=== PATIENT | female | born 1945 | race Caucasian/White ===

== ENCOUNTER 2017-05-29 23:54 | Inpatient (IN) | payer OTHER ==
--- NOTE | 2017-05-30 00:34 | ED PDOC ---
Arrival/HPI - General Time Seen by Provider: 05/30/17 00:18 Historian: Patient, EMS, Research Dietitian - Critical Care Critical Care Minutes: 30 minutes - History of Present Illness Narrative History of Present Illness (Text): 05/30/17 00:24 Dina Cooley is a 71 year old female, whose past medical history includes diabetes and hypertension, who presents to the Emergency department sent from cruise [place] for altered mental status tonight. As per EMS, patient was found wandering on the cruise ship deck confused and disoriented. Patient was noted to be hyperglycemia. Patient reports, via [employer]bek skirt clipper #[id number], she had 1 episode of vomiting tonight. Patient states she drank red wine and vodka tonight. Patient denies any chest pain, abdominal pain, headache, dizziness, or any other complaints. Time/Duration: Other (tonight) Symptom Onset: Gradual Symptom Course: Unchanged Activities at Onset: Light Context: Other (cruise ship) Past Medical History - Provider Review Nursing Documentation Reviewed: Yes Family/Social History - Physician Review Nursing Documentation Reviewed: Yes Family/Social History: Unknown Family HX Allergies/Home Meds Allergies/Adverse Reactions: Allergies No Known Allergies Allergy (Verified 05/30/17 00:18) Home Medications: Home Meds Medication Instructions Recorded Confirmed Valsartan/Hydrochlorothiazide 1 tab PO DAILY 05/30/17 05/30/17 [Valsartan-Hctz 160-12.5 mg Tab] Review of Systems - Review of Systems Systems not reviewed;Unavailable: Language Barrier Eyes: Normal ENT: Normal Respiratory: Normal. absent: SOB, Cough Cardiovascular: absent: Chest Pain Gastrointestinal: Vomiting. absent: Abdominal Pain, Diarrhea Genitourinary Female: Normal. absent: Dysuria, Frequency, Hematuria, Urine Output Changes Musculoskeletal: Normal. absent: Back Pain, Neck Pain Skin: Normal Neurological: Normal. absent: Headache, Dizziness Endocrine: Other (+hyperglycemia) Hemo/Lymphatic: Normal Psychiatric: Normal Physical Exam Vital Signs Reviewed: Yes Vital Signs Temp Pulse Resp BP Pulse Ox 05/30/17 06:09 99 H 16 137/78 99 05/30/17 06:00 99.1 F 106 H 20 142/75 98 05/30/17 04:52 98.0 F 103 H 16 139/73 100 05/30/17 00:43 98.7 F 126 H 18 121/63 97 Temperature: Afebrile Blood Pressure: Normal Pulse: Regular Respiratory Rate: Normal Appearance: Positive for: Well-Appearing, Non-Toxic, Comfortable Pain Distress: None Mental Status: Positive for: Alert and Oriented X 3 - Systems Exam Head: Present: Atraumatic, Normocephalic Pupils: Present: PERRL Extroacular Muscles: Present: EOMI Conjunctiva: Present: Normal Mouth: Present: Moist Mucous Membranes Neck: Present: Normal Range of Motion Respiratory/Chest: Present: Clear to Auscultation, Good Air Exchange. No: Respiratory Distress, Accessory Muscle Use Cardiovascular: Present: Regular Rate and Rhythm, Normal S1, S2. No: Murmurs Abdomen: Present: Normal Bowel Sounds. No: Tenderness, Distention, Peritoneal Signs Back: Present: Normal Inspection Upper Extremity: Present: Normal Inspection. No: Cyanosis, Edema Lower Extremity: Present: Normal Inspection. No: Edema Neurological: Present: GCS=15, CN II-XII Intact, Speech Normal Skin: Present: Warm, Dry, Normal Color. No: Rashes Psychiatric: Present: Alert, Oriented x 3, Normal Insight, Normal Concentration Medical Decision Making ED Course and Treatment: 05/30/17 00:24 Impression: 71 year old female sent from cruise ship for altered mental status and hyperglycemia tonight. Plan: -- EKG -- Chest X-ray -- Labs, troponin, VBG -- Urinalysis -- IV fluids -- Zofran -- Pepcid -- Reassess and disposition Progress Notes: 05/30/17 01:46 Reviewed radiology, Chest X-ray shows no acute processes. 05/30/17 01:55 Reviewed EKG, sinus tachycardia at 109 bpm. Inferior infarct. Non-specific ST/T wave changes. 05/30/17 02:[address] Quiles, lime sludge kiln operator,who is aware and agrees to evaluate pt. 05/30/17 02:09 Case discussed with biomedical equipment tech staff electronic warfare officer, who is aware and agrees with plan. 05/30/17 04:[address] Quiles, states [facility] can go to [facility]. Pt will be admitted to the hospitalist service for uncontrolled diabetes mellitus, UTI, and leukocytosis. - Lab Interpretations Lab Results: 05/30/17 01:00 05/30/17 03:57 Lab Results 05/30/17 04:10: Alcohol, Quantitative < 10 05/30/17 03:57: Sodium 137, Chloride 105, Potassium 3.7, Carbon Dioxide 20 L, Anion Gap 16, BUN 20, Creatinine 0.7, Est GFR ( Amer) > 60, Est GFR (Non- Af Amer) > 60, Random Glucose 348 H* D, Calcium 7.7 L 05/30/17 03:30: Urine Color Yellow, Urine Appearance Clear, Urine pH 6.0, Ur Specific [place] 1.015, Urine Protein 30 H, Urine Glucose (UA) >=1000, Urine Ketones >=80, Urine Blood Moderate H, Urine Nitrate Positive H, Urine Bilirubin Negative, Urine Urobilinogen 0.2, Ur Leukocyte Esterase Trace H, Urine RBC 2 - 5 , Urine WBC 5 - 10, Ur Epithelial Cells 1 - 3, Urine Bacteria Large 05/30/17 03:10: POC Glucose (mg/dL) 430 H* 05/30/17 01:00: Sodium 131 L, Chloride 95 L, Potassium 4.2, Carbon Dioxide 15 L , Anion Gap 25 H, BUN 24 H, Creatinine 0.9, Est GFR ( Amer) > 60, Est GFR (Non-Af Amer) > 60, Random Glucose 583 H*, Calcium 9.0, Total Bilirubin 0.9 , AST 22, ALT 32, Alkaline Phosphatase 164 H, Troponin I 0.06, Total Protein 6.8 , Albumin 3.7, Globulin 3.2, Albumin/Globulin Ratio 1.2 05/30/17 01:00: pO2 45, VBG pH 7.32, VBG pCO2 30.0 L, VBG HCO3 15.5 L, VBG Total CO2 16.4 L, VBG O2 Sat (Calc) 84.2 H, VBG Base Excess -9.3 L, VBG Potassium 4.2, Sodium 129.0 L, Chloride 92.0 L, Glucose 615 H*, Lactate 2.0, FiO2 21.0, Venous Blood Potassium 4.2 05/30/17 01:00: PT 11.4, INR 1.06, APTT 28.4 05/30/17 01:00: WBC 19.3 H, RBC 4.45, Hgb 13.4, Hct 38.8, MCV 87.2, MCH 30.1, MCHC 34.5, RDW 13.4, Plt Count 220, MPV 11.2 H, Gran % 89.2 H, Lymph % (Auto) 5.0 L, [place] % (Auto) 5.7, Eos % (Auto) 0.0 L, Baso % (Auto) 0.1, Gran # 17.26 H , Lymph # 1.0 L, [place] # 1.1 H, Eos # 0.0, Baso # 0.02, Neutrophils % (Manual) 75 H, Band Neutrophils % 7 H, Lymphocytes % (Manual) 8 L, Monocytes % (Manual) 9 H, Basophils % (Manual) 1, Platelet Evaluation Normal I have reviewed the lab results: Yes - RAD Interpretation Radiology Orders: 05/30/17 00:24 CHEST PORTABLE [RAD] Stat Saddle And Side Wire Stitcher: ED Physician - EKG Interpretation Interpreted by ED Physician: Yes Type: 12 lead EKG - Medication Orders Current Medication Orders: Enoxaparin Sodium (Lovenox) 40 mg SC DAILY [place] PRN Reason: Protocol Last Admin: 05/30/17 11:03 Dose: 40 mg Hydrochlorothiazide (Microzide) 12.5 mg PO DAILY [facility] Last Admin: 05/30/17 11:02 Dose: 12.5 mg Sodium Chloride (Sodium Chloride 0.9%) 1,000 mls @ 100 mls/hr IV .Q10H [facility] Last Admin: 05/30/17 08:13 Dose: 100 mls/hr Meropenem 1g/NS 100mL IVPB (Meropenem 1g/Ns 100ml Ivpb) 1 gm in 100 mls @ 100 mls/hr IVPB Q8 [place] PRN Reason: Protocol Stop: 06/08/17 12:51 Last Admin: 05/30/17 13:23 Dose: 100 mls/hr Insulin Detemir (Levemir) 15 unit SC HS [facility] Last Admin: 05/30/17 05:00 Dose: Comments: order on hold by Insulin Human Regular (Humulin R Low) 0 units SC Q3H [place] PRN Reason: Protocol Last Admin: 05/30/17 12:23 Dose: 4 units Linezolid (Zyvox) 600 mg PO BID [place] PRN Reason: Protocol Stop: 06/08/17 12:51 Last Admin: 05/30/17 13:23 Dose: 600 mg Losartan Potassium (Cozaar) 100 mg PO DAILY [facility] Last Admin: 05/30/17 11:02 Dose: 100 mg Nystatin (Nystop Topical Powder) 0 gm TOP BID [facility] Ondansetron HCl (Zofran Inj) 4 mg IVP Q4H PRN PRN Reason: Nausea/Vomiting Pantoprazole Sodium (Protonix Inj) 40 mg IVP DAILY [facility] Last Admin: 05/30/17 11:03 Dose: 40 mg Discontinued Medications Famotidine (Pepcid) 20 mg IVP STAT STA Stop: 05/30/17 00:49 Last Admin: 05/30/17 01:16 Dose: 20 mg Sodium Chloride 2,530 ml/ IV (SUPPLIES) 2,530 mls @ 5,062.08 mls/hr IV ONCE ONE PRN Reason: 60 ML/KG/HR Stop: 05/30/17 00:21 Last Admin: 05/30/17 01:00 Dose: 5,062.08 mls/hr Sodium Chloride (Sodium Chloride 0.9%) 1,000 mls @ 999 mls/hr IV .Q1H1M STA Stop: 05/30/17 03:05 Last Admin: 05/30/17 06:06 Dose: 999 mls/hr Vancomycin HCl (Vancomycin 1gm) 1 gm in 250 mls @ 167 mls/hr IVPB STAT STA PRN Reason: Protocol Stop: 05/30/17 03:46 Last Admin: 05/30/17 04:00 Dose: 167 mls/hr Piperacillin Sod/Tazobactam Sod (Zosyn 3.375 In Ns 100ml) 100 mls @ 200 mls/hr IV STAT STA PRN Reason: Protocol Stop: 05/30/17 02:44 Last Admin: 05/30/17 03:30 Dose: 200 mls/hr Ceftriaxone Sodium (Rocephin 1 Gram Ivpb) 1 gm in 100 mls @ 100 mls/hr IVPB DAILY [place] PRN Reason: Protocol Ceftriaxone Sodium (Rocephin 1 Gram Ivpb) 1 gm in 100 mls @ 100 mls/hr IVPB DAILY [facility] PRN Reason: Protocol Last Admin: 05/30/17 11:05 Dose: 100 mls/hr Insulin Detemir (Levemir) 15 unit SC STAT STA Stop: 05/30/17 05:00 Insulin Human Regular (Humulin R) 10 units SC STAT STA Stop: 05/30/17 01:32 Last Admin: 05/30/17 01:35 Dose: 10 units Insulin Human Regular (Humulin R) Confirm Administered Dose 1 units .ROUTE .STK- MED ONE Stop: 05/30/17 01:39 Last Admin: 05/30/17 01:58 Dose: Ondansetron HCl (Zofran Inj) 4 mg IVP ONCE ONE Stop: 05/30/17 00:49 Last Admin: 05/30/17 01:17 Dose: 4 mg - Scribe Statement The provider has reviewed the documentation as recorded by the Wilfredo Cavazos Provider Scribe Attestation: All medical record entries made by the Wilfredo were at my direction and personally dictated by me. I have reviewed the chart and agree that the record accurately reflects my personal performance of the history, physical exam, medical decision making, and the department course for this patient. I have also personally directed, reviewed, and agree with the discharge instructions and disposition. Disposition/Present on Arrival - Present on Arrival Any Indicators Present on Arrival: No History of DVT/PE: No History of Uncontrolled Diabetes: Yes Urinary Catheter: No History of Decub. Ulcer: No History Surgical Site Infection Following: None - Disposition Have Diagnosis and Disposition been Completed?: Yes Diagnosis: Uncontrolled diabetes mellitus, Leukocytosis, UTI (urinary tract infection) Disposition: HOSPITALIZED Disposition Time: 05:03 Patient Plan: Admission Patient Problems: Current Active Problems Problem Status Onset Leukocytosis Acute UTI (urinary tract infection) Acute Uncontrolled diabetes mellitus Acute Condition: STABLE
[2017-05-30 00:47] VITALS: BMI 29.9
[2017-05-30 01:23] LABS: VENOUS BLOOD GAS BASE EXCESS -9.3 mmol/L (0.0-2.0); VENOUS BLOOD PH 7.32 (7.32-7.43)
[2017-05-30 01:27] LABS: BASO # 0.02 K/mm3 (0.0-2.0); BASO % 0.1 % (0.0-3.0); GRAN # 17.26 (1.4-6.5); GRAN % 89.2 % (50.0-68.0); HEMATOCRIT 38.8 % (36.0-48.0); MEAN CELL VOLUME 87.2 fl (80.0-105.0); MEAN CORPUSCULAR HEMOGLOBIN 30.1 pg (25.0-35.0); MEAN CORPUSCULAR HGB CONC 34.5 g/dl (31.0-37.0); MEAN PLATELET VOLUME 11.2 fl (7.0-11.0); MONO # 1.1 (0.1-0.6); MONO % 5.7 % (1.0-6.0); PLATELET COUNT 220 10^3/uL (120.0-450.0); RED CELL DISTRIBUTION WIDTH 13.4 % (11.5-14.5); WHITE BLOOD COUNT 19.3 10^3/ul (4.5-11.0)
[2017-05-30 01:31] LABS: ALB/GLOB RATIO 1.2 (1.1-1.8); ALKALINE PHOSPHATASE 164 U/L (38-126); ALT/SGPT 32 U/L (7-56); AST/SGOT 22 U/L (14-36); BILIRUBIN,TOTAL 0.9 mg/dL (0.2-1.3); BLOOD UREA NITROGEN 24 mg/dL (7-21); CARBON DIOXIDE 15 mmol/L (21-33); CHLORIDE 95 mmol/L (98-107); GFR AFRICAN-AMERICAN > 60; POTASSIUM 4.2 mmol/L (3.6-5.0); SODIUM 131 mmol/L (132-148); TOTAL PROTEIN 6.8 g/dL (5.8-8.3)
[2017-05-30] MEDS ORDERED: Insulin Regular 1 UNITS/0.01 ML ML SC STA (01:31)
[2017-05-30 01:33] LABS: INR 1.06 (0.93-1.08); PARTIAL THROMBOPLASTIN TIME 28.4 Seconds (23.7-30.8)
[2017-05-30] MEDS ORDERED: Insulin Regular 1 UNITS/0.01 ML ML ONE (01:38)
[2017-05-30 01:40] LABS: GLUCOSE,RANDOM 583 mg/dL (70-110)
[2017-05-30 01:42] LABS: TROPONIN I 0.06 ng/mL
[2017-05-30] MEDS ORDERED: Sodium Chloride 0.9% 1,000 ML IV STA ×2 (02:05)
[2017-05-30] MEDS ORDERED: Piperacillin/Tazobact 3.375 gm 100 ML IV STA (02:15)
[2017-05-30] MEDS ORDERED: Vancomycin 1gm in NS 250ml 1 GM/250 ML BAG IVPB STA (02:17)
[2017-05-30 03:10] LABS: BAND 7 % (0-2); BASOPHIL 1 % (0.0-1.0); NEUTROPHIL 75 % (50.0-70.0)
[2017-05-30 03:11] LABS: PLATELET ESTIMATE NORMAL (NORMAL)
[2017-05-30 03:59] LABS: URINE BILIRUBIN NEGATIVE (NEGATIVE); URINE BLOOD MODERATE (NEGATIVE); URINE GLUCOSE (UA) >=1000 mg/dL (NEGATIVE); URINE KETONE >=80 mg/dL (NEGATIVE); URINE LEUKOCYTE ESTERASE TRACE Leu/uL (NEGATIVE); URINE PROTEIN 30 mg/dL (<30 mg/dL); URINE UROBILINOGEN 0.2 E.U./dL (<1 E.U./dL)
[2017-05-30 04:10] LABS: URINE APPEARANCE CLEAR (CLEAR); URINE COLOR YELLOW (YELLOW)
[2017-05-30 04:29] LABS: URINE BACTERIA LARGE (NEG)
--- NOTE | 2017-05-30 04:41 | CP.PCM.HP ---
<NONA MATTA - Last Filed: 05/30/17 04:22> History of Present Illness - History of Present Illness History of Present Illness: Nona Matta DO PGY1 - Internal Medicine H&P and ICU Consult Note CC: Vomiting HPI: 71 yo Slovak speaking F with PMH of DM and HTN presents to ER by ambulance , brought from a cruise ship where she had vomiting and was noted to be confused. On board medical exam significant for HTN (200/100), hyperglycemia ( 565), lactic acidosis (4.2), and leukocytosis (56355). She was given 1L NS bolus , 5mg Nitrendipine SL, and 5mg Urapidil, after which her BP improved to 150/80. (Per doctor's letter sent from cruise ship). History obtained through remote commodity specialist. She currently denies all complaints, including CP, SOB, N/V/D/C, abdominal pain, dysuria, hematuria, cough, sore throat, otalgia, otorrhea, nasal congestion. She reports that she drank approximately 200ml wine on the cruise ship, and vomited once, NBNB, mostly water. She reports noncompliance with her oral hypoglycemics. PMH: DM, HTN PSH: None Meds: Valsartan 160, HCTZ 12.5, unknown oral hypoglycemic Soc: Denies Tobacco and Illicits. Normally does not drink any alcohol, but reports having had two glasses of wine today All: NKDA ROS: Constitutional: pt denies fever, chills, generalized weakness ENT: pt denies dysphagia, otalgia, hearing deficit, rhinorrhea Eyes: pt denies sudden loss of vision, diplopia, blurred vision MSK: pt denies muscle stiffness, joint pain, extremity cramping Cardio: pt denies sob, heart murmur, CP Pulm: pt denies cough, hemoptysis, wheeze GI: pt denies loss of appetite, abdominal pain, constipation, melena, n/v/d : pt denies burning on urination, urinary frequency, hematuria, urinary urgency Neuro: pt denies paresis, paresthesia, dizziness, urbina, numbness, tingling Derm: pt denies skin changes, lesions, nail changes Endo: pt denies intolerance to heat/cold, diaphoresis, night sweats, polydipsia Psych: pt denies anxiety, depression, mood changes Present on Admission - Present on Admission Any Indicators Present on Admission: No Past Patient History - Past Social History Smoking Status: Never Smoked - CARDIAC Hx Cardiac Disorders: No - PULMONARY Hx Respiratory Disorders: No - NEUROLOGICAL Hx Neurological Disorder: No - HEENT Hx HEENT Problems: No - RENAL Hx Chronic Kidney Disease: No - ENDOCRINE/METABOLIC Hx Diabetes Mellitus Type 1: Yes - HEMATOLOGICAL/ONCOLOGICAL Hx Blood Disorders: No - INTEGUMENTARY Hx Dermatological Problems: No - MUSCULOSKELETAL/RHEUMATOLOGICAL Hx Musculoskeletal Disorders: No - GASTROINTESTINAL Hx Gastrointestinal Disorders: No - GENITOURINARY/GYNECOLOGICAL Hx Genitourinary Disorders: No - PSYCHIATRIC Hx Psychophysiologic Disorder: No Hx Substance Use: No - SURGICAL HISTORY Hx Surgeries: No Meds Allergies/Adverse Reactions: Allergies Allergy/AdvReac Type Severity Reaction Status Date / Time No Known Allergies Allergy Verified 05/30/17 00:18 Physical Exam - Constitutional Appears: Non-toxic, No Acute Distress Additional comments: Slovak speaking only - Head Exam Head Exam: ATRAUMATIC, NORMOCEPHALIC - Eye Exam Eye Exam: EOMI, Normal appearance, PERRL - ENT Exam ENT Exam: Mucous Membranes Moist - Neck Exam Neck exam: Negative for: Lymphadenopathy, Meningismus, Thyromegaly - Respiratory Exam Respiratory Exam: Clear to Auscultation Bilateral. absent: Rales, Rhonchi, Wheezes - Cardiovascular Exam Cardiovascular Exam: RRR, +S1, +S2 - GI/Abdominal Exam GI & Abdominal Exam: Normal Bowel Sounds, Soft. absent: Guarding, Rebound, Rigid, Tenderness - Extremities Exam Extremities exam: Negative for: calf tenderness Additional comments: Trace pitting edema right foot to ankle - Back Exam Back exam: absent: CVA tenderness (L), CVA tenderness (R) - Neurological Exam Neurological exam: Alert, CN II-XII Intact, Oriented x3 - Psychiatric Exam Psychiatric exam: Normal Affect, Normal Mood - Skin Skin Exam: Dry, Intact, Normal Color Results - Vital Signs Recent Vital Signs: Last Vital Signs Temp 98.7 F 05/30/17 00:43 Pulse 126 H 05/30/17 00:43 Resp 18 05/30/17 00:43 BP 121/63 05/30/17 00:43 Pulse Ox 97 05/30/17 00:43 - Labs Result Diagrams: 05/30/17 01:00 05/30/17 01:00 Labs: Laboratory Results - last 24 hr 05/30/17 05/30/17 05/30/17 01:00 01:00 01:00 WBC 19.3 H RBC 4.45 Hgb 13.4 Hct 38.8 MCV 87.2 MCH 30.1 MCHC 34.5 RDW 13.4 Plt Count 220 MPV 11.2 H Gran % 89.2 H Lymph % (Auto) 5.0 L [place] % (Auto) 5.7 Eos % (Auto) 0.0 L Baso % (Auto) 0.1 Gran # 17.26 H Lymph # 1.0 L [place] # 1.1 H Eos # 0.0 Baso # 0.02 Neutrophils % (Manual) 75 H Band Neutrophils % 7 H Lymphocytes % (Manual) 8 L Monocytes % (Manual) 9 H Basophils % (Manual) 1 Platelet Evaluation Normal PT 11.4 INR 1.06 APTT 28.4 pO2 45 VBG pH 7.32 VBG pCO2 30.0 L VBG HCO3 15.5 L VBG Total CO2 16.4 L VBG O2 Sat (Calc) 84.2 H VBG Base Excess -9.3 L VBG Potassium 4.2 Sodium 129.0 L Chloride 92.0 L Glucose 615 H* Lactate 2.0 FiO2 21.0 Potassium Carbon Dioxide Anion Gap BUN Creatinine Est GFR ( Amer) Est GFR (Non-Af Amer) POC Glucose (mg/dL) Random Glucose Calcium Total Bilirubin AST ALT Alkaline Phosphatase Troponin I Total Protein Albumin Globulin Albumin/Globulin Ratio Venous Blood Potassium 4.2 Urine Color Urine Appearance Urine pH Ur Specific [place] Urine Protein Urine Glucose (UA) Urine Ketones Urine Blood Urine Nitrate Urine Bilirubin Urine Urobilinogen Ur Leukocyte Esterase 05/30/17 05/30/17 05/30/17 01:00 03:10 03:30 WBC RBC Hgb Hct MCV MCH MCHC RDW Plt Count MPV Gran % Lymph % (Auto) [place] % (Auto) Eos % (Auto) Baso % (Auto) Gran # Lymph # [place] # Eos # Baso # Neutrophils % (Manual) Band Neutrophils % Lymphocytes % (Manual) Monocytes % (Manual) Basophils % (Manual) Platelet Evaluation PT INR APTT pO2 VBG pH VBG pCO2 VBG HCO3 VBG Total CO2 VBG O2 Sat (Calc) VBG Base Excess VBG Potassium Sodium 131 L Chloride 95 L Glucose Lactate FiO2 Potassium 4.2 Carbon Dioxide 15 L Anion Gap 25 H BUN 24 H Creatinine 0.9 Est GFR ( Amer) > 60 Est GFR (Non-Af Amer) > 60 POC Glucose (mg/dL) 430 H* Random Glucose 583 H* Calcium 9.0 Total Bilirubin 0.9 AST 22 ALT 32 Alkaline Phosphatase 164 H Troponin I 0.06 Total Protein 6.8 Albumin 3.7 Globulin 3.2 Albumin/Globulin Ratio 1.2 Venous Blood Potassium Urine Color Yellow Urine Appearance Clear Urine pH 6.0 Ur Specific [place] 1.015 Urine Protein 30 H Urine Glucose (UA) >=1000 Urine Ketones >=80 Urine Blood Moderate H Urine Nitrate Positive H Urine Bilirubin Negative Urine Urobilinogen 0.2 Ur Leukocyte Esterase Trace H Assessment & Plan - Assessment and Plan (Free Text) Assessment: 71 yo Slovak speaking F with PMH of DM, HTN, medication noncompliance presents to ER, sent by cruise ship physician for hyperglycemia, leukocytosis, lactic acidosis, HTN, and vomiting Plan: 1. HONK - Patient has history of DM and medication noncompliance; presented with BG 583 , bicarbonate 15 and AG 21, and ketonuria, but not acidotic on VBG - Received 10u insulin in ER, 1L NS bolus prior to presentation, and total 5L NS bolus in the ER - After insulin and fluid administration, BG came down to 340 and AG closed (12) , so patient is in HONK, likely triggered by UTI - Start Levimir 15u HS, with one dose given now - Start IVF NS@100cc/hr - Sliding scale insulin LOW with accucheck Q3h - Zofran for nausea - Carb consistent diet 2. Leukocytosis - Sepsis 2/2 acute cystitis - Patient initially presented with SIRS criteria, possible sepsis. Had WBC 98104 with LA 4.2 prior to presentation, which changed to WBC up to 19.3 and LA down to 2.0 on presentation, initially tachycardic, later with positive UA as likely source of infection - No signs of shock or end organ damage - VSS now, no longer meets SIRS criteria - UCx, BCx ordered, pending - CXR shows no active disease, pending official read - Received one dose of Vanc and Zosyn in ER - Start Rocephin 1gm QD - Recheck leukocytosis with AM labs 3. HTN - Hypertensive urgency/emergency prior to presentation, resolved - BP stable in ER after receiving Nitrendipin and Urapidil in the field - Restart home Valsartan and HCTZ - Continue to monitor GI/DVT Ppx As patient is not in DKA and not requiring insulin drip, nor in severe sepsis/ septic shock, ICU admission not warranted at this time. Patient seen, discussed, and reviewed with attending <Sage Quilse - Last Filed: 05/30/17 06:41> Results - Vital Signs Recent Vital Signs: Last Vital Signs Temp 98.0 F 05/30/17 04:52 Pulse 99 H 05/30/17 06:09 Resp 16 05/30/17 06:09 BP 137/78 05/30/17 06:09 Pulse Ox 99 05/30/17 06:09 - Labs Result Diagrams: 05/30/17 05:35 05/30/17 03:57 Labs: Laboratory Results - last 24 hr 05/30/17 05/30/17 05/30/17 05:11 05:35 05:35 WBC 15.2 H D RBC 4.08 Hgb 12.1 Hct 35.0 L MCV 85.8 MCH 29.7 MCHC 34.6 RDW 13.4 Plt Count 204 MPV 10.6 Gran % 87.1 H Lymph % (Auto) 7.7 L [place] % (Auto) 5.1 Eos % (Auto) 0.0 L Baso % (Auto) 0.1 Gran # 13.23 H Lymph # 1.2 [place] # 0.8 H Eos # 0.0 Baso # 0.02 pO2 53 VBG pH 7.29 L VBG pCO2 38.0 L VBG HCO3 18.3 L VBG Total CO2 19.5 L VBG O2 Sat (Calc) 90.7 H VBG Base Excess -7.7 L VBG Potassium 3.3 L Sodium 136.0 Chloride 107.0 Glucose 323 H Lactate 1.5 FiO2 21.0 POC Glucose (mg/dL) 340 H Venous Blood Potassium 3.3 L Attending/Attestation - Attestation I have personally seen and examined this patient.: Yes I have fully participated in the care of the patient.: Yes I have reviewed all pertinent clinical information: Yes Notes (Text): 05/30/17 06:38 I agree with the above mentioned note and exam by the resident with the addition of the followin71 y/o female with Htn and DM (taking oral agents, does not use insulin) was brought in to the ED from the cruise ship where she had been experiencing nausea and vomiting along with lethargy. Asked to see the patient for an ICU consult, however she presented as hyperosmolar nonketotic state with resolution of her anion gap acidosis with IVF administration. It appears this was brought on by sepsis secondary to acute cystitis. She was given empiric Vanco/Zosyn in the ED prior to a U/A even being performed. She is now on IVF hydration, Ceftriaxone IV and started on a diet. We will continue to check her fingersticks frequently (Q3) to ensure that she does not remain persistently hyperglycemic. She did not require placement in the ICU or an ongoing insulin drip at this time.
[2017-05-30 04:45] LABS: BLOOD UREA NITROGEN 20 mg/dL (7-21); CALCIUM 7.7 mg/dL (8.4-10.5); CARBON DIOXIDE 20 mmol/L (21-33); CHLORIDE 105 mmol/L (98-107); GFR AFRICAN-AMERICAN > 60; POTASSIUM 3.7 mmol/L (3.6-5.0); SODIUM 137 mmol/L (132-148)
[2017-05-30] MEDS ORDERED: Insulin Detemir 100 units/ml Vial (Levemir) SC STA (04:59)
[2017-05-30] MEDS ORDERED: cefTRIAXone 1 gm 1 GM/100 ML BAG IVPB SCH ×2 (04:59→10:00)
[2017-05-30] MEDS: Insulin Detemir 100 units/ml Vial (Levemir) SC SCH ×2 (05:00→22:42)
[2017-05-30] MEDS: Insulin Reg-LOW-Coverage SC SCH ×6 (05:12→22:25)
[2017-05-30 05:23] LABS: GLUCOSE,RANDOM 348 mg/dL (70-110)
[2017-05-30 05:55] LABS: BASO # 0.02 K/mm3 (0.0-2.0); BASO % 0.1 % (0.0-3.0); GRAN # 13.23 (1.4-6.5); GRAN % 87.1 % (50.0-68.0); LYMPH # 1.2 (1.2-3.4); LYMPH % 7.7 % (22.0-35.0); MEAN CELL VOLUME 85.8 fl (80.0-105.0); MEAN CORPUSCULAR HEMOGLOBIN 29.7 pg (25.0-35.0); MEAN CORPUSCULAR HGB CONC 34.6 g/dl (31.0-37.0); MEAN PLATELET VOLUME 10.6 fl (7.0-11.0); MONO # 0.8 (0.1-0.6); MONO % 5.1 % (1.0-6.0); RED CELL DISTRIBUTION WIDTH 13.4 % (11.5-14.5); WHITE BLOOD COUNT 15.2 10^3/ul (4.5-11.0)
[2017-05-30 05:57] LABS: VENOUS BLOOD GAS BASE EXCESS -7.7 mmol/L (0.0-2.0); VENOUS BLOOD PH 7.29 (7.32-7.43)
[2017-05-30] MEDS: Sodium Chloride 0.9% 1,000 ML IV SCH ×2 (08:13→18:17)
[2017-05-30] MEDS: Enoxaparin 40 mg Syringe SC SCH (11:03)
[2017-05-30] MEDS ORDERED: Vancomycin 500mg in NS 500 MG/100 ML BAG IVPB SCH (12:15)
--- NOTE | 2017-05-30 13:18 | CARD ---
APPROVED REPORT EKG Measurement Heart [id number] <Conclusion> Sinus tachycardia Inferior infarct, age undetermined Abnormal ECG
[2017-05-30] MEDS: Meropenem 1g/NS 100mL IVPB 1 GM/100 ML PIGGYBACK IVPB SCH ×3 (13:23→22:42)
[2017-05-30] MEDS ORDERED: Meropenem 500 MG in Sodium Chloride 0.9% 100 ML IVPB SCH (14:00)
--- NOTE | 2017-05-30 16:51 | CON ---
DATE: 05/30/2017 LOCATION: The patient is seen earlier today in 378, bed 1. CHIEF COMPLAINT: Weakness from several days. HISTORY OF PRESENT ILLNESS: This is a 71-year-old female from [place]. 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 She is off from the cruise ship with history of hypertension, diabetes. She developed nausea and vomiting and no abdominal pain at this point. No chest pain. No headaches or blurred vision. She had low-grade fevers. No chills. She was initially confused; at this time, she is not confused. She denies any chest pain, shortness of breath and she did have nausea, but no abdominal pain, dysuria, no hematuria, no sore throat. PAST MEDICAL HISTORY: Significant for hypertension and diabetes. PAST SURGICAL HISTORY: Noncontributory. ALLERGIES: THE PATIENT HAS NO KNOWN ALLERGIES. SOCIAL HISTORY: She is [place]. She was on a cruise ship and became ill on a cruise ship. MEDICATIONS AT HOME: In [place] include valsartan and hydrochlorothiazide. PHYSICAL EXAMINATION: GENERAL: She is in bed, in no acute distress. VITAL SIGNS: Temperature of 99.1, heart rate of 126, respiratory rate of 20, blood pressure is 120/60. HEENT: Unremarkable. NECK: Supple. LUNGS: Decreased breath sounds. HEART: Normal S1 and S2. ABDOMEN: Soft. EXTREMITIES: Examination of right foot is erythematous. The right big toe with foul odor, it is necrotic and central ulcer. The pulses are intact. LABORATORY DATA: Reveals a white count of 19,000, hemoglobin of 13, platelets of 220 and 89% granulocytosis. The patient has 7% bandemia. BUN of 20, creatinine of 0.7. Urinalysis is noted and 5-10 WBCs. The patient had a chest x-ray, the results are not available. Echo results are not available. EKG results are not available. ASSESSMENT AND PLAN: This is a 71-year-old female with leukocytosis, tachycardia. 1. Sepsis with a right first toe cellulitis. 2. Rule out underlying peripheral vascular disease. 3. Rule out osteomyelitis. We will start the patient on Zyvox and meropenem and order a sedimentation rate, C-reactive protein, blood cultures, urine cultures, wound cultures and MRI of the foot and arterial Doppler's and venous Doppler's, and make further recommendations upon availability of initial results, should have a vascular consultation and podiatry consultation. Duane Chiang MD
--- NOTE | 2017-05-30 17:22 | RAD ---
HISTORY: Sepsis Patient COMPARISON: No prior. FINDINGS: LUNGS: No active pulmonary disease. PLEURA: No significant pleural effusion identified, no pneumothorax apparent. CARDIOVASCULAR: Normal. Mild multilevel degenerative spondylosis of the thoracic spine OSSEOUS STRUCTURES: VISUALIZED UPPER ABDOMEN: Normal. OTHER FINDINGS: None. IMPRESSION: No acute consolidation.
[2017-05-30] MEDS: Nystatin 100,000 Units/gm Topical Pow(15 gm) TOP SCH (18:17)
[2017-05-31] MEDS: Insulin Reg-LOW-Coverage SC SCH ×6 (01:00→22:56)
[2017-05-31] MEDS: Meropenem 1g/NS 100mL IVPB 1 GM/100 ML PIGGYBACK IVPB SCH ×3 (05:47→22:56)
[2017-05-31 06:58] LABS: BASO # 0.02 K/mm3 (0.0-2.0); BASO % 0.2 % (0.0-3.0); EOS # 0.1 (0.0-0.7); EOS % 0.9 % (1.5-5.0); GRAN # 7.06 (1.4-6.5); GRAN % 72.2 % (50.0-68.0); HEMATOCRIT 33.7 % (36.0-48.0); LYMPH # 1.7 (1.2-3.4); LYMPH % 17.2 % (22.0-35.0); MEAN CELL VOLUME 85.5 fl (80.0-105.0); MEAN CORPUSCULAR HEMOGLOBIN 28.9 pg (25.0-35.0); MEAN CORPUSCULAR HGB CONC 33.8 g/dl (31.0-37.0); MEAN PLATELET VOLUME 10.8 fl (7.0-11.0); MONO # 0.9 (0.1-0.6); MONO % 9.5 % (1.0-6.0); RED CELL DISTRIBUTION WIDTH 13.4 % (11.5-14.5); WHITE BLOOD COUNT 9.8 10^3/ul (4.5-11.0)
[2017-05-31 07:38] LABS: ALB/GLOB RATIO 0.9 (1.1-1.8); ALKALINE PHOSPHATASE 102 U/L (38-126); ALT/SGPT 28 U/L (7-56); AST/SGOT 19 U/L (14-36); BILIRUBIN,TOTAL 0.6 mg/dL (0.2-1.3); BLOOD UREA NITROGEN 11 mg/dL (7-21); CALCIUM 8.2 mg/dL (8.4-10.5); CARBON DIOXIDE 26 mmol/L (21-33); CHLORIDE 99 mmol/L (95-110); GFR AFRICAN-AMERICAN > 60; GLUCOSE,RANDOM 155 mg/dL (70-110); POTASSIUM 4.5 mmol/L (3.6-5.0); SODIUM 138 mmol/L (132-148); TOTAL PROTEIN 5.5 g/dL (5.8-8.3)
--- NOTE | 2017-05-31 11:25 | CP.PCM.CON ---
<MercedesgurmeetPammalka - Last Filed: 05/31/17 15:48> History of Present Illness - History of Present Illness History of Present Illness: Podiatry Consult Note - Dr. Granados 71 year old Korean speaking female patient PMHx uncontrolled DM and HTN seen at bedside at the request for podiatry consultation for wound care/ r/o OM. HPI was obtained using cracker off ([facility] #[id number]). Patient states on Thursday, she was on a cruise ship with her family when she felt dehydrated and vomited. Patient states she had been dehydrated from travelling all day but otherwise felt fine on the cruise ship; patient admits she is confused as to why she was taken from the trip. Patient admits to being a diabetic however does not take her medications regularly. Patient admits to swelling to her right great toe but is not sure when it began. Patient denies pain to her right foot. Patient denies N/ V/F/D/C/SOB/calf pain. No other pedal complaints at this time. Review of Systems - Review of Systems All systems: reviewed and no additional remarkable complaints except (as per HPI ) Past Patient History - Past Social History Smoking Status: Never Smoked - CARDIAC Hx Hypertension: Yes - PULMONARY Hx Respiratory Disorders: No - NEUROLOGICAL Hx Neurological Disorder: No - HEENT Hx HEENT Problems: No - RENAL Hx Chronic Kidney Disease: No - ENDOCRINE/METABOLIC Hx Diabetes Mellitus Type 2: Yes (Managed with PO meds) - HEMATOLOGICAL/ONCOLOGICAL Hx Blood Disorders: No - INTEGUMENTARY Hx Dermatological Problems: No - MUSCULOSKELETAL/RHEUMATOLOGICAL Hx Falls: No - GASTROINTESTINAL Hx Gastrointestinal Disorders: No - GENITOURINARY/GYNECOLOGICAL Hx Genitourinary Disorders: No - PSYCHIATRIC Hx Psychophysiologic Disorder: No Hx Substance Use: No - SURGICAL HISTORY Hx Surgeries: No Meds Allergies/Adverse Reactions: Allergies Allergy/AdvReac Type Severity Reaction Status Date / Time No Known Allergies Allergy Verified 05/30/17 00:18 - Medications Medications: Current Medications Acetaminophen (Tylenol 325mg Tab) 650 mg PO Q6H PRN PRN Reason: Fever >100.4 F Enoxaparin Sodium (Lovenox) 40 mg SC DAILY [facility] PRN Reason: Protocol Last Admin: 05/30/17 11:03 Dose: 40 mg Hydrochlorothiazide (Microzide) 12.5 mg PO DAILY [facility] Last Admin: 05/30/17 11:02 Dose: 12.5 mg Sodium Chloride (Sodium Chloride 0.9%) 1,000 mls @ 100 mls/hr IV .Q10H [facility] Last Admin: 05/30/17 18:17 Dose: 100 mls/hr Meropenem 1g/NS 100mL IVPB (Meropenem 1g/Ns 100ml Ivpb) 1 gm in 100 mls @ 100 mls/hr IVPB Q8 [facility] PRN Reason: Protocol Stop: 06/08/17 12:51 Last Admin: 05/31/17 05:47 Dose: 100 mls/hr Insulin Detemir (Levemir) 15 unit SC HS [facility] Last Admin: 05/30/17 22:42 Dose: 15 unit Insulin Human Regular (Humulin R Low) 0 units SC Q3H [facility] PRN Reason: Protocol Last Admin: 05/31/17 07:30 Dose: Not Given Linezolid (Zyvox) 600 mg PO BID [facility] PRN Reason: Protocol Stop: 06/08/17 12:51 Last Admin: 05/30/17 18:17 Dose: 600 mg Losartan Potassium (Cozaar) 100 mg PO DAILY [facility] Last Admin: 05/30/17 11:02 Dose: 100 mg Nystatin (Nystop Topical Powder) 0 gm TOP BID [facility] Last Admin: 05/30/17 18:17 Dose: 1 applic Ondansetron HCl (Zofran Inj) 4 mg IVP Q4H PRN PRN Reason: Nausea/Vomiting Pantoprazole Sodium (Protonix Ec Tab) 40 mg PO 0600 [facility] Physical Exam - Constitutional Appears: Well, Non-toxic, Confused - Extremities Exam Additional comments: VASC: DP and PT pulses palpable 2/4 b/l. CFT <3 seconds to all digits x10. TG warm to warm b/l with increase in warmth to right hallux. Non-pitting edema noted to right hallux. NEURO: Gross sensation diminished b/l. DERM: Erythema noted to right hallux extending proximally to 1st metatarsal head. Superficial ulceration noted to plantarmedial IPJ measuring approximately 0.5 x 0.3 x 0.1 cm with no purulence, fluctuance, malodor noted. Ulcer is noted to have a hyperkeratotic rim. Nails 1-5 b/l are thickened, elongated, and dystrophic with the presence of subungual debris. Right foot nail 1 proximal border appears to have a collection of purulence. ORTHO: No pain on palpation to right hallux. - Neurological Exam Neurological exam: Alert, Oriented x3 - Psychiatric Exam Psychiatric exam: Normal Affect, Normal Mood Results - Vital Signs Recent Vital Signs: Last Vital Signs Temp 100.6 F H 05/30/17 18:53 Pulse 103 H 05/30/17 18:53 Resp 20 05/30/17 18:53 BP 146/86 05/30/17 18:53 Pulse Ox 97 05/30/17 18:53 - Labs Result Diagrams: 05/31/17 06:00 05/31/17 06:00 Labs: Laboratory Results - last 24 hr 05/30/17 05/30/17 05/30/17 11:36 14:53 16:10 WBC RBC Hgb Hct MCV MCH MCHC RDW Plt Count MPV Gran % Lymph % (Auto) [place] % (Auto) Eos % (Auto) Baso % (Auto) Gran # Lymph # [place] # Eos # Baso # ESR Sodium Potassium Chloride Carbon Dioxide Anion Gap BUN Creatinine Est GFR ( Amer) Est GFR (Non-Af Amer) POC Glucose (mg/dL) 214 H 239 H Random Glucose Calcium Total Bilirubin AST ALT Alkaline Phosphatase C-React Prot High Sens > 15.00 H Total Protein Albumin Globulin Albumin/Globulin Ratio 05/30/17 05/30/17 05/31/17 16:30 21:47 06:00 WBC 9.8 D RBC 3.94 Hgb 11.4 L Hct 33.7 L MCV 85.5 MCH 28.9 MCHC 33.8 RDW 13.4 Plt Count 222 MPV 10.8 Gran % 72.2 H Lymph % (Auto) 17.2 L [place] % (Auto) 9.5 H Eos % (Auto) 0.9 L Baso % (Auto) 0.2 Gran # 7.06 H Lymph # 1.7 [place] # 0.9 H Eos # 0.1 Baso # 0.02 ESR 50 H Sodium Potassium Chloride Carbon Dioxide Anion Gap BUN Creatinine Est GFR ( Amer) Est GFR (Non-Af Amer) POC Glucose (mg/dL) 251 H Random Glucose Calcium Total Bilirubin AST ALT Alkaline Phosphatase C-React Prot High Sens Total Protein Albumin Globulin Albumin/Globulin Ratio 05/31/17 05/31/17 06:00 07:51 WBC RBC Hgb Hct MCV MCH MCHC RDW Plt Count MPV Gran % Lymph % (Auto) [place] % (Auto) Eos % (Auto) Baso % (Auto) Gran # Lymph # [place] # Eos # Baso # ESR Sodium 138 Potassium 4.5 Chloride 99 Carbon Dioxide 26 Anion Gap 18 BUN 11 Creatinine 0.7 Est GFR ( Amer) > 60 Est GFR (Non-Af Amer) > 60 POC Glucose (mg/dL) 149 H Random Glucose 155 H Calcium 8.2 L Total Bilirubin 0.6 AST 19 ALT 28 Alkaline Phosphatase 102 C-React Prot High Sens Total Protein 5.5 L Albumin 2.6 L Globulin 2.9 Albumin/Globulin Ratio 0.9 L Assessment & Plan - Assessment and Plan (Free Text) Assessment: 71 year old female patient PMH DM, HTN with right hallux abscess + cellulitis Plan: Patient seen and evaluated at bedside Discussed with attending, Dr. Granados Chart, vitals, labs reviewed = afebrile today (mildly febrile yesterday @ 100.6) ; WBC WNL @ 9.8 (trending downwards from yesterday 05/30/17 05:35 @15.2, 01:00 @ 19.3) F/U RLE MRI results F/U extremity ultrasound results RLE arterial doppler ordered Bactroban ordered for right hallux ulceration Large woman's surgical shoe ordered Exuderm applied to right hallux Podiatry will continue to follow patient while in house <Mague Granados - Last Filed: 06/14/17 14:26> Results - Vital Signs Recent Vital Signs: Last Vital Signs Temp 97.6 F 06/09/17 08:47 Pulse 85 06/09/17 08:47 Resp 20 06/09/17 08:47 BP 161/93 H 06/09/17 08:47 Pulse Ox 98 06/09/17 08:47 - Labs Result Diagrams: 06/09/17 07:37 06/09/17 07:37 Attending/Attestation - Attestation I have personally seen and examined this patient.: Yes I have fully participated in the care of the patient.: Yes I have reviewed all pertinent clinical information: Yes
[2017-05-31] MEDS: Nystatin 100,000 Units/gm Topical Pow(15 gm) TOP SCH ×2 (12:20→18:16)
[2017-05-31] MEDS: Enoxaparin 40 mg Syringe SC SCH (12:20)
--- NOTE | 2017-05-31 16:39 | PN ---
DATE: 05/31/2017 SUBJECTIVE: The patient is in bed, in no acute distress. PHYSICAL EXAMINATION: VITAL SIGNS: Temperature is 100.6, heart rate of 103, blood pressure is 140/80, and respiratory rate is 20. HEENT: Unremarkable. NECK: Supple. LUNGS: Decreased breath sounds. HEART: Normal S1 and S2. ABDOMEN: Soft. EXTREMITIES: Examination of foot is noted. LABORATORY DATA: Reveals a white count is down to 9,000, hemoglobin of 11, sed rate of 50, and platelets of 222. BUN of 11, creatinine of 0.7. C-reactive protein is greater than 15. Urinalysis is noted. Microbiology reveals gram-negative nancy in urine. The blood cultures are negative. The wound cultures are pending. The patient had an MRI of the foot, the results are pending. The ultrasound results are also pending. The echo results are also pending. ASSESSMENT AND PLAN: A 71-year-old female from [facility], who is [place] cruise ship with history of diabetes and hypertension, admitted with sepsis with a right first toe significant cellulitis, malodorous, must rule out underlying osteomyelitis and peripheral artery disease, on Zyvox and meropenem. MRI and cultures are pending. We will follow closely. The patient also with a gram-negative nancy in the urine. Also urinalysis is not significant with only 5-10 WBCs. Duane Chiang MD
--- NOTE | 2017-05-31 17:48 | US ---
HISTORY: Leg pain and swelling. Evaluate for DVT PHYSICIAN(S): Dirk Johnson MD. TECHNIQUE: Duplex sonography and color-flow Doppler with graded compression were used to evaluate the deep venous systems of both lower extremities. FINDINGS: The visualized deep venous systems of both lower extremities are sonographically normal and compressible. Normal wave forms and augmentation are seen. There is no sonographic evidence for deep venous thrombosis in the visualized segments of both lower extremities. IMPRESSION: No sonographic evidence for deep venous thrombosis in the visualized segments of both lower extremities.
--- NOTE | 2017-05-31 17:51 | MRI ---
PROCEDURE: MRI of the right foot without contrast HISTORY: r/o osteo COMPARISON: No prior similar study available for comparison. TECHNIQUE: Axial coronal and sagittal MRI images of the right foot were obtained without IV contrast administration. FINDINGS: This study is somewhat limited due to patient's motion. There is bone marrow edema and cortical destruction at the distal phalanx of the 1st toe highly suspicious for osteomyelitis. Mild diffuse bone marrow edema also seen at the proximal phalanx of the big toe without evidence of cortical destruction which may represent an early osteomyelitis versus bone marrow reaction. Otherwise no evidence of acute osseous abnormality. There are inflammatory changes and soft tissue swelling more prominent at the 1st toe. The assessment for small abscess formation is limited without IV contrast administration. IMPRESSION: Limited study due to patient's motion. Bone marrow edema and cortical destruction at the distal phalanx of the 1st toe suspicious for osteomyelitis. Bone marrow edema at the proximal phalanx of the big toe may represent an early osteomyelitis versus bone marrow reaction. Soft tissue inflammatory changes/edema more prominent at the big toe.
[2017-05-31] MEDS: Sodium Chloride 0.9% 1,000 ML IV SCH (18:19)
--- NOTE | 2017-05-31 21:29 | CP.PCM.PN ---
<CORY AYALA - Last Filed: 05/31/17 21:56> Subjective - Date & Time of Evaluation Date of Evaluation: 05/31/17 Time of Evaluation: 10:35 - Subjective Subjective: patient was seen and examined at bedside. she offered no complaints and denied cp, abd pain, fevers or chills. Objective - Vital Signs/Intake and Output Vital Signs (last 24 hours): Temp Pulse Resp BP Pulse Ox 99.5 F 82 20 140/78 98 05/31/17 17:18 05/31/17 17:18 05/31/17 17:18 05/31/17 17:18 05/31/17 17:18 - Medications Medications: Current Medications Acetaminophen (Tylenol 325mg Tab) 650 mg PO Q6H PRN PRN Reason: Fever >100.4 F Enoxaparin Sodium (Lovenox) 40 mg SC DAILY [facility] PRN Reason: Protocol Last Admin: 05/31/17 12:20 Dose: 40 mg Hydrochlorothiazide (Microzide) 12.5 mg PO DAILY [facility] Last Admin: 05/31/17 12:20 Dose: 12.5 mg Sodium Chloride (Sodium Chloride 0.9%) 1,000 mls @ 100 mls/hr IV .Q10H [facility] Last Admin: 05/31/17 18:19 Dose: 100 mls/hr Meropenem 1g/NS 100mL IVPB (Meropenem 1g/Ns 100ml Ivpb) 1 gm in 100 mls @ 100 mls/hr IVPB Q8 [facility] PRN Reason: Protocol Stop: 06/08/17 12:51 Last Admin: 05/31/17 15:26 Dose: 100 mls/hr Insulin Detemir (Levemir) 15 unit SC HS [facility] Last Admin: 05/30/17 22:42 Dose: 15 unit Insulin Human Regular (Humulin R Low) 0 units SC Q3H [facility] PRN Reason: Protocol Last Admin: 05/31/17 16:35 Dose: 2 units Linezolid (Zyvox) 600 mg PO BID [facility] PRN Reason: Protocol Stop: 06/08/17 12:51 Last Admin: 05/31/17 18:14 Dose: 600 mg Losartan Potassium (Cozaar) 100 mg PO DAILY [facility] Last Admin: 05/31/17 12:20 Dose: 100 mg Mupirocin (Bactroban Ointment) 0 gm TOP BID [facility] Nystatin (Nystop Topical Powder) 0 gm TOP BID [facility] Last Admin: 05/31/17 18:16 Dose: 1 applic Ondansetron HCl (Zofran Inj) 4 mg IVP Q4H [facility]N PRN Reason: Nausea/Vomiting Pantoprazole Sodium (Protonix Ec Tab) 40 mg PO 0600 [facility] - Labs Labs: 05/31/17 06:00 05/31/17 06:00 PT 11.4 Seconds (9.9-11.8) 05/30/17 01:00 INR 1.06 (0.93-1.08) 05/30/17 01:00 APTT 28.4 Seconds (23.7-30.8) 05/30/17 01:00 - Constitutional Appears: Well, Non-toxic, No Acute Distress - Head Exam Head Exam: ATRAUMATIC, NORMAL INSPECTION - Eye Exam Eye Exam: EOMI, Normal appearance, PERRL - ENT Exam ENT Exam: Mucous Membranes Moist, Normal Exam - Neck Exam Neck Exam: Normal Inspection - Respiratory Exam Respiratory Exam: Clear to Ausculation Bilateral, NORMAL BREATHING PATTERN. absent: Rales, Rhonchi, Wheezes - Cardiovascular Exam Cardiovascular Exam: RRR. absent: Murmur - GI/Abdominal Exam GI & Abdominal Exam: Soft, Normal Bowel Sounds. absent: Distended, Tenderness - Extremities Exam Extremities Exam: Pedal Edema Additional comments: RLE swollen R hallux erythema and ulcer hyperpigmentation w/ some peeling on both feet - Back Exam Back Exam: NORMAL INSPECTION - Neurological Exam Neurological Exam: Alert, Awake, Oriented x3 Assessment and Plan - Assessment and Plan (Free Text) Assessment: 71 yo Colombian speaking F with PMH of DM, HTN, medication noncompliance presents to ER, sent by cruise ship physician for hyperglycemia, leukocytosis, lactic acidosis, HTN, and vomiting. Found to have septic likely 2/2 UTI. Later discovered to have R hallux abscess and cellulitis of buttox skin. r/o osteo Plan: 1. R hallux abscess/cellulitis, osteo likely present - MRI suspicious for osteomyelitis vs bone marrow reaction - on Zyvox and Merrem - ID consulted, recs appreciated - Podiatry consulted, recs appreciated - pt is afebrile currently - Tylenol PRN - WBC improving 2. Sepsis - pt started on abx - source of infections: UTI and cellulitis in RLE - 3.5L NS received - Received Rocephin in ED - UCx growing G-rods - BCx no growth after 24hrs - WCx pending - CXR showed no acute findings - 3. LE swelling - Doppler showed no DVT b/l - likely lymphedema 4. Buttox redness - nystatin powder apply 5. Hx DM2 - Patient has history of DM and medication noncompliance; presented with BG 583 , bicarbonate 15 and AG 21, and ketonuria, but not acidotic on VBG - Received 10u insulin in ER, 1L NS bolus prior to presentation, and total 5L NS bolus in the ER - After insulin and fluid administration, BG came down to 340 and AG closed (12) , so patient is in HONK, likely triggered by UTI - Start Levimir 15u HS, with one dose given now - Start IVF NS@100cc/hr - Sliding scale insulin LOW with accucheck Q3h - Zofran for nausea - Carb consistent diet 6. HTN - Hypertensive urgency/emergency prior to presentation, resolved - BP stable in ER after receiving Nitrendipin and Urapidil in the field - Restart home Losartan and HCTZ - Continue to monitor CCD Lovenox/PTX NS 100 Patient was seen, evaluated and discussed with attending, Dr. Silviano Ayala PGY1 <Roberto Carlos Shore - Last Filed: 06/01/17 16:08> Objective - Vital Signs/Intake and Output Vital Signs (last 24 hours): Temp Pulse Resp BP Pulse Ox 99.2 F 70 20 159/81 H 159 H 06/01/17 08:59 06/01/17 08:59 06/01/17 08:59 06/01/17 08:59 06/01/17 08:59 Intake and Output: 06/01/17 06/01/17 06:59 18:59 Intake Total 540 480 Output Total 600 400 Balance -60 80 - Medications Medications: Current Medications Acetaminophen (Tylenol 325mg Tab) 650 mg PO Q6H PRN PRN Reason: Fever >100.4 F Enoxaparin Sodium (Lovenox) 40 mg SC DAILY [facility] PRN Reason: Protocol Last Admin: 06/01/17 10:16 Dose: 40 mg Hydrochlorothiazide (Microzide) 12.5 mg PO DAILY [facility] Last Admin: 06/01/17 10:17 Dose: 12.5 mg Sodium Chloride (Sodium Chloride 0.9%) 1,000 mls @ 100 mls/hr IV .Q10H [facility] Last Admin: 05/31/17 18:19 Dose: 100 mls/hr Meropenem 1g/NS 100mL IVPB (Meropenem 1g/Ns 100ml Ivpb) 1 gm in 100 mls @ 100 mls/hr IVPB Q8 [facility] PRN Reason: Protocol Stop: 06/08/17 12:51 Last Admin: 06/01/17 13:42 Dose: 100 mls/hr Insulin Detemir (Levemir) 15 unit SC HS [facility] Last Admin: 05/31/17 23:00 Dose: 15 unit Insulin Human Regular (Humulin R Low) 0 units SC Q3H [facility] PRN Reason: Protocol Last Admin: 06/01/17 12:05 Dose: 3 units Linezolid (Zyvox) 600 mg PO BID [facility] PRN Reason: Protocol Stop: 06/08/17 12:51 Last Admin: 06/01/17 10:18 Dose: 600 mg Losartan Potassium (Cozaar) 100 mg PO DAILY [facility] Last Admin: 06/01/17 10:15 Dose: 100 mg Mupirocin (Bactroban Ointment) 0 gm TOP BID [facility] Last Admin: 06/01/17 10:15 Dose: Not Given Nystatin (Nystop Topical Powder) 0 gm TOP BID [facility] Last Admin: 06/01/17 10:17 Dose: 1 applic Ondansetron HCl (Zofran Inj) 4 mg IVP Q4H [facility] PRN Reason: Nausea/Vomiting Pantoprazole Sodium (Protonix Ec Tab) 40 mg PO 0600 [facility] Last Admin: 06/01/17 10:18 Dose: 40 mg - Labs Labs: 06/01/17 06:55 06/01/17 08:40 PT 11.4 Seconds (9.9-11.8) 05/30/17 01:00 INR 1.06 (0.93-1.08) 05/30/17 01:00 APTT 28.4 Seconds (23.7-30.8) 05/30/17 01:00 Attending/Attestation - Attestation I have personally seen and examined this patient.: Yes I have fully participated in the care of the patient.: Yes I have reviewed all pertinent clinical information, including history, physical exam and plan: Yes Notes (Text): I have seen and examined the patient at bedside. Agree with the above note with the following additions/ exceptions: Briefly this is 71 year old [place] female who was [place] with history of HTN, obesity,DM-2 on oral hypoglycemics who was brought for evaluation of N,V, lethargy and found to have hyperosmolar non ketotic state with resolution of AG after IVF administration. She was also found to have sepsis secondary to UTI and right foot hallux cellulitis vs osteomyelitis. Will order MRI to r/o osteomyelitis, LE to r/o DVT and MELITON to eval PVD. Patient is on meropenem and vancomycin. Start nystatin powder for tinea cruris. Restart BP meds and start levemir. Hba1c is pending at this time. Patient was explained about the diagnosis and plan with the help of image scientist. Dr Roberto Carlos Shore
[2017-05-31] MEDS: Insulin Detemir 100 units/ml Vial (Levemir) SC SCH (23:00)
[2017-06-01] MEDS: Insulin Reg-LOW-Coverage SC SCH ×7 (01:15→22:33)
[2017-06-01] MEDS: Meropenem 1g/NS 100mL IVPB 1 GM/100 ML PIGGYBACK IVPB SCH ×3 (06:07→22:27)
[2017-06-01 07:04] LABS: BASO # 0.01 K/mm3 (0.0-2.0); BASO % 0.2 % (0.0-3.0); EOS # 0.2 (0.0-0.7); EOS % 2.6 % (1.5-5.0); GRAN # 4.01 (1.4-6.5); HEMATOCRIT 29.8 % (36.0-48.0); LYMPH # 1.5 (1.2-3.4); LYMPH % 23.9 % (22.0-35.0); MEAN CELL VOLUME 85.1 fl (80.0-105.0); MEAN CORPUSCULAR HEMOGLOBIN 29.1 pg (25.0-35.0); MEAN CORPUSCULAR HGB CONC 34.2 g/dl (31.0-37.0); MEAN PLATELET VOLUME 10.4 fl (7.0-11.0); MONO # 0.5 (0.1-0.6); MONO % 8.3 % (1.0-6.0); RED CELL DISTRIBUTION WIDTH 13.4 % (11.5-14.5); WHITE BLOOD COUNT 6.2 10^3/ul (4.5-11.0)
--- NOTE | 2017-06-01 08:45 | CARD ---
APPROVED REPORT EXAM: Two-dimensional and M-mode echocardiogram with Doppler and color Doppler. INDICATION LVFX 2D DIMENSIONS Left Atrium (2D)3.5 (1.6-4.0cm)IVSd1.0 (0.7-1.1cm) LVDd4.4 (3.9-5.9cm)PWd1.1 (0.7-1.1cm) LVDs3.0 (2.5-4.0cm)FS (%) 32.1 % LVEF (%)60.6 (>50%) M-Mode DIMENSIONS Aortic Root3.30 (2.2-3.7cm)Aortic Cusp Exc.1.80 (1.5-2.0cm) Aortic Valve AoV Peak Kxxfcgzo180.0cm/Nima Peak GR.8mmHg Mitral Valve MV E Zjdzligm34.2cm/sMV A Qsaibuvg155.0cm/sMV VSY16hx E/A ratio0.6MVA (PHT)2.89cm2 TDI Lateral E' Peak V12.00cm/sMedial E' Peak V7.60cm/sE/Lateral E'7.8 E/Medial E'12.3 Pulmonary Valve PV Peak Clcuyzsk38.1cm/sPV Peak Grad.3mmHg Tricuspid Valve TR Peak [id number]/sRAP [id number] Peak Gr.27mmHg [id number] LEFT VENTRICLE The left ventricle is normal size. There is normal left ventricular wall thickness. The left ventricular function is normal.EF-55-60% There is normal LV segmental wall motion. Transmitral Doppler flow pattern is Grade III-reversible restrictive diastolic dysfunction. No left ventricle thrombus noted on this study. There is no ventricular septal defect visualized. There is no left ventricular aneurysm. There is no mass noted in the left ventricle. RIGHT VENTRICLE The right ventricle is normal size. There is normal right ventricular wall thickness. The right ventricular systolic function is normal. ATRIA The left atrium size is normal. The right atrium size is normal. The interatrial septum is intact with no evidence for an atrial septal defect. AORTIC VALVE The aortic valve is thickened but opens well. The aortic valve is mildly to moderately sclerotic. No aortic regurgitation is present. There is no aortic valvular stenosis. There is no aortic valvular vegetation. MITRAL VALVE The mitral valve is thickened but opens well. Mitral annular calcification is moderate. Mitral regurgitation is trace to mild. There is no mitral valve stenosis. There is no evidence of mitral valve prolapse. TRICUSPID VALVE The tricuspid valve leaflets are thickened , but open well. There is trace to mild tricuspid regurgitation.RVSP-37 mmof hg. There is no tricuspid valve stenosis. There is no tricuspid valve prolapse or vegetation. PULMONIC VALVE The pulmonary valve is normal in structure. There is no pulmonic valvular regurgitation. There is no pulmonic valvular stenosis. GREAT VESSELS The aortic root is normal in size. The ascending aorta is normal in size. The pulmonary artery is normal. The IVC is normal in size and collapses >50% with inspiration. PERICARDIAL EFFUSION There is no pleural effusion. There is no pericardial effusion. <Conclusion> Normal chamber Size. EF-55-60% Mitral regurgitation is trace to mild. There is trace to mild tricuspid regurgitation.RVSP-37 mmof hg. The IVC is normal in size and collapses >50% with inspiration. There is no pericardial effusion. No Vegetation or thrombus noted.
[2017-06-01 09:20] LABS: ALB/GLOB RATIO 0.9 (1.1-1.8); ALKALINE PHOSPHATASE 102 U/L (38-126); ALT/SGPT 25 U/L (7-56); AST/SGOT 19 U/L (14-36); BILIRUBIN,TOTAL 0.5 mg/dL (0.2-1.3); BLOOD UREA NITROGEN 8 mg/dL (7-21); CALCIUM 8.4 mg/dL (8.4-10.5); CARBON DIOXIDE 31 mmol/L (21-33); CHLORIDE 102 mmol/L (98-107); GFR AFRICAN-AMERICAN > 60; GLUCOSE,RANDOM 167 mg/dL (70-110); POTASSIUM 3.8 mmol/L (3.6-5.0); SODIUM 140 mmol/L (132-148)
--- NOTE | 2017-06-01 10:11 | US ---
PROCEDURE: Lower extremity MELITON exam HISTORY: Peripheral vascular disease with pain and claudication. Diabetes. PHYSICIAN(S): Dirk Johnson MD. FINDINGS: The resting MELITON's are normal: right, 1.14and left, 0.23. The brachial systolic pressures are symmetric. The high thigh pressures are noncompressible. The high thigh PVR waveforms are relatively normal and symmetric. The calf PVR waveforms augment normally. No significant gradients are noted across the thighs. The ankle and metatarsal waveforms are relatively normal and symmetric. No significant pressure gradients are noted across the lower legs. IMPRESSION: 1. Relatively normal MELITON and PVR examination at rest.
[2017-06-01] MEDS: Enoxaparin 40 mg Syringe SC SCH (10:16)
[2017-06-01] MEDS: Nystatin 100,000 Units/gm Topical Pow(15 gm) TOP SCH ×2 (10:17→17:51)
[2017-06-01] MEDS: Pantoprazole 40 mg EC Tab PO SCH (10:18)
--- NOTE | 2017-06-01 15:29 | CP.PCM.PN ---
Subjective - Date & Time of Evaluation Date of Evaluation: 06/01/17 Time of Evaluation: 14:15 - Subjective Subjective: Comfortable, no fevers, not in distress. Objective - Vital Signs/Intake and Output Vital Signs (last 24 hours): Temp Pulse Resp BP Pulse Ox 99.2 F 70 20 159/81 H 159 H 06/01/17 08:59 06/01/17 08:59 06/01/17 08:59 06/01/17 08:59 06/01/17 08:59 Intake and Output: 06/01/17 06/01/17 06:59 18:59 Intake Total 540 Output Total 600 Balance -60 - Medications Medications: Current Medications Acetaminophen (Tylenol 325mg Tab) 650 mg PO Q6H PRN PRN Reason: Fever >100.4 F Enoxaparin Sodium (Lovenox) 40 mg SC DAILY [facility] PRN Reason: Protocol Last Admin: 06/01/17 10:16 Dose: 40 mg Hydrochlorothiazide (Microzide) 12.5 mg PO DAILY [facility] Last Admin: 06/01/17 10:17 Dose: 12.5 mg Sodium Chloride (Sodium Chloride 0.9%) 1,000 mls @ 100 mls/hr IV .Q10H [facility] Last Admin: 05/31/17 18:19 Dose: 100 mls/hr Meropenem 1g/NS 100mL IVPB (Meropenem 1g/Ns 100ml Ivpb) 1 gm in 100 mls @ 100 mls/hr IVPB Q8 [facility] PRN Reason: Protocol Stop: 06/08/17 12:51 Last Admin: 06/01/17 06:07 Dose: 100 mls/hr Insulin Detemir (Levemir) 15 unit SC HS [facility] Last Admin: 05/31/17 23:00 Dose: 15 unit Insulin Human Regular (Humulin R Low) 0 units SC Q3H [facility] PRN Reason: Protocol Last Admin: 06/01/17 10:16 Dose: Not Given Linezolid (Zyvox) 600 mg PO BID [facility] PRN Reason: Protocol Stop: 06/08/17 12:51 Last Admin: 06/01/17 10:18 Dose: 600 mg Losartan Potassium (Cozaar) 100 mg PO DAILY [facility] Last Admin: 06/01/17 10:15 Dose: 100 mg Mupirocin (Bactroban Ointment) 0 gm TOP BID [facility] Last Admin: 06/01/17 10:15 Dose: Not Given Nystatin (Nystop Topical Powder) 0 gm TOP BID [facility] Last Admin: 06/01/17 10:17 Dose: 1 applic Ondansetron HCl (Zofran Inj) 4 mg IVP Q4H PRN PRN Reason: Nausea/Vomiting Pantoprazole Sodium (Protonix Ec Tab) 40 mg PO 0600 [facility] Last Admin: 06/01/17 10:18 Dose: 40 mg - Labs Labs: 06/01/17 06:55 06/01/17 08:40 PT 11.4 Seconds (9.9-11.8) 05/30/17 01:00 INR 1.06 (0.93-1.08) 05/30/17 01:00 APTT 28.4 Seconds (23.7-30.8) 05/30/17 01:00 - Constitutional Appears: Non-toxic, No Acute Distress - Head Exam Head Exam: NORMAL INSPECTION - ENT Exam ENT Exam: Mucous Membranes Moist - Neck Exam Neck Exam: absent: Lymphadenopathy, Meningismus - Respiratory Exam Respiratory Exam: Decreased Breath Sounds - Cardiovascular Exam Cardiovascular Exam: +S1, +S2 - GI/Abdominal Exam GI & Abdominal Exam: Soft. absent: Tenderness - Extremities Exam Additional comments: right hallux with dressings in place Assessment and Plan - Assessment and Plan (Free Text) Plan: Assessment Sepsis due to Right foot hallux skin and soft tissue infection with probable osteomyelitis of the distal and proximal phalanges gram negative bacteriuria DM HTN obesity with BMI 30 Plan continue Zyvox and Merrem pending final wound cx results; MELITON's are normal follow up further plans of Podiatry will monitor clinically
[2017-06-01] MEDS ORDERED: Insulin Reg-HIGH-Coverage SC SCH (16:30)
--- NOTE | 2017-06-01 16:58 | CP.PCM.PN ---
<Jaison Best - Last Filed: 06/01/17 16:52> Subjective - Date & Time of Evaluation Date of Evaluation: 06/01/17 Time of Evaluation: 16:52 - Subjective Subjective: Podiatry Consult Note - Dr. Granados 71 year old Mauritian speaking female patient PMHx uncontrolled DM and HTN seen at bedside with attending, Dr. Granados, for right great toe cellulitis. 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 Patient seen resting comfortably, NAD. Patient denies any acute events overnight. Patient denies any pain to her foot today. Patient is aware that she has an infection to her right great toe. Patient states prior to admission, she tried to clean her great toe herself. Patient states she needs to return back on the cruise ship before next week Thursday. Patient is adamant about seeing a grain elevator superintendent once she is [place] to take [place] of her foot. Patient denies N/V/F/D/C/SOB/calf pain. No other pedal complaints at this time. Objective - Vital Signs/Intake and Output Vital Signs (last 24 hours): Temp Pulse Resp BP Pulse Ox 99.2 F 70 20 159/81 H 159 H 06/01/17 08:59 06/01/17 08:59 06/01/17 08:59 06/01/17 08:59 06/01/17 08:59 Intake and Output: 06/01/17 06/01/17 06:59 18:59 Intake Total 540 480 Output Total 600 400 Balance -60 80 - Medications Medications: Current Medications Acetaminophen (Tylenol 325mg Tab) 650 mg PO Q6H PRN PRN Reason: Fever >100.4 F Enoxaparin Sodium (Lovenox) 40 mg SC DAILY [facility] PRN Reason: Protocol Last Admin: 06/01/17 10:16 Dose: 40 mg Hydrochlorothiazide (Microzide) 12.5 mg PO DAILY [facility] Last Admin: 06/01/17 10:17 Dose: 12.5 mg Meropenem 1g/NS 100mL IVPB (Meropenem 1g/Ns 100ml Ivpb) 1 gm in 100 mls @ 100 mls/hr IVPB Q8 [facility] PRN Reason: Protocol Stop: 06/08/17 12:51 Last Admin: 06/01/17 13:42 Dose: 100 mls/hr Insulin Detemir (Levemir) 15 unit SC HS [facility] Last Admin: 05/31/17 23:00 Dose: 15 unit Insulin Human Regular (Humulin R Low) 0 units SC ACHS [facility] PRN Reason: Protocol Linezolid (Zyvox) 600 mg PO BID [facility] PRN Reason: Protocol Stop: 06/08/17 12:51 Last Admin: 06/01/17 10:18 Dose: 600 mg Losartan Potassium (Cozaar) 100 mg PO DAILY [facility] Last Admin: 06/01/17 10:15 Dose: 100 mg Mupirocin (Bactroban Ointment) 0 gm TOP BID [facility] Last Admin: 06/01/17 10:15 Dose: Not Given Nystatin (Nystop Topical Powder) 0 gm TOP BID [facility] Last Admin: 06/01/17 10:17 Dose: 1 applic Ondansetron HCl (Zofran Inj) 4 mg IVP Q4H PRN PRN Reason: Nausea/Vomiting Oxychlorosene Sodium (Clorpactin Wcs-90) 2 gm TOP DAILY [facility] Pantoprazole Sodium (Protonix Ec Tab) 40 mg PO 0600 [facility] Last Admin: 06/01/17 10:18 Dose: 40 mg - Labs Labs: 06/01/17 06:55 06/01/17 08:40 PT 11.4 Seconds (9.9-11.8) 05/30/17 01:00 INR 1.06 (0.93-1.08) 05/30/17 01:00 APTT 28.4 Seconds (23.7-30.8) 05/30/17 01:00 - Constitutional Appears: Well, Non-toxic, No Acute Distress - Extremities Exam Additional comments: VASC: DP and PT pulses palpable 2/4 b/l. CFT <3 seconds to all digits x10. TG warm to warm b/l with increase in warmth to right hallux. Non-pitting edema noted to right hallux. NEURO: Gross sensation diminished b/l. DERM: Erythema noted to right hallux extending proximally to 1st metatarsal head. Ulceration noted to plantarmedial IPJ measuring approximately 0.5 x 0.3 x 0.1 cm which tunnels dorsoplantarly to proximal nail fold. Approximately 5cc of purulence was expressed; +malodor, +probe to bone. Nails 1-5 b/l are thickened, elongated, and dystrophic with the presence of subungual debris. ORTHO: No pain on palpation to right hallux. - Neurological Exam Neurological Exam: Alert, Awake - Psychiatric Exam Psychiatric exam: Normal Affect, Normal Mood Assessment and Plan - Assessment and Plan (Free Text) Assessment: 71 year old female patient PMH DM, HTN with right hallux abscess, cellulitis, and hallucal distal phalanx osteomyelitis Plan: Patient seen and evaluated at bedside with attending, Dr. Granados Chart, vitals, labs reviewed = afebrile; WBC WNL @ 6.2 (trending downwards from yesterday 05/31/17 @ 9.8, 05/30/17 05:35 @15.2, 01:00 @19.3) RLE MRI report reviewed: - Bone marrow edema and cortical destruction at the distal phalanx of 1st toe suspicious for osteomyelitis - Bone marrow edema at the proximal phalanx of the big toe may represent an early osteomyelitis versus bone marrow reaction LE ultrasound report reviewed: (-)DVT LE MELITON/PVR report reivewed: WNL Ulcer cleansed with sterile saline and packed with 1/4" iodoform packing strip. Right foot dressed with DSD F/U wound culture results Patient is to wear surgical shoe at all times while ambulating Explained to patient morbidity of osteomyelitis; patient adamant about only receiving conservative care as she needs to be back on cruise ship on Thursday Will continue conservative care Per ID, patient to continue Zyvox and Merrem pending final wound cx results Podiatry will continue to follow patient while in house <Mague Granados - Last Filed: 06/14/17 14:29> Objective - Vital Signs/Intake and Output Vital Signs (last 24 hours): Temp Pulse Resp BP Pulse Ox 97.6 F 85 20 161/93 H 98 06/09/17 08:47 06/09/17 08:47 06/09/17 08:47 06/09/17 08:47 06/09/17 08:47 - Labs Labs: 06/09/17 07:37 06/09/17 07:37 PT 11.4 Seconds (9.9-11.8) 05/30/17 01:00 INR 1.06 (0.93-1.08) 05/30/17 01:00 APTT 28.4 Seconds (23.7-30.8) 05/30/17 01:00 Attending/Attestation - Attestation I have personally seen and examined this patient.: Yes I have fully participated in the care of the patient.: Yes I have reviewed all pertinent clinical information, including history, physical exam and plan: Yes
--- NOTE | 2017-06-01 18:48 | CP.PCM.PN ---
<CORY AYAAL - Last Filed: 06/01/17 19:12> Subjective - Date & Time of Evaluation Date of Evaluation: 06/01/17 Time of Evaluation: 11:30 - Subjective Subjective: patient was seen and examined at bedside. denies fevers/chills, cp/sob/ palpitations. states that she in less pain today than before. no acute overnight events. Objective - Vital Signs/Intake and Output Vital Signs (last 24 hours): Temp Pulse Resp BP Pulse Ox 99.2 F 70 20 159/81 H 159 H 06/01/17 08:59 06/01/17 08:59 06/01/17 08:59 06/01/17 08:59 06/01/17 08:59 Intake and Output: 06/01/17 06/01/17 06:59 18:59 Intake Total 540 480 Output Total 600 400 Balance -60 80 - Medications Medications: Current Medications Acetaminophen (Tylenol 325mg Tab) 650 mg PO Q6H PRN PRN Reason: Fever >100.4 F Enoxaparin Sodium (Lovenox) 40 mg SC DAILY [facility] PRN Reason: Protocol Last Admin: 06/01/17 10:16 Dose: 40 mg Hydrochlorothiazide (Microzide) 12.5 mg PO DAILY [facility] Last Admin: 06/01/17 10:17 Dose: 12.5 mg Meropenem 1g/NS 100mL IVPB (Meropenem 1g/Ns 100ml Ivpb) 1 gm in 100 mls @ 100 mls/hr IVPB Q8 [facility] PRN Reason: Protocol Stop: 06/08/17 12:51 Last Admin: 06/01/17 13:42 Dose: 100 mls/hr Insulin Detemir (Levemir) 15 unit SC HS [facility] Last Admin: 05/31/17 23:00 Dose: 15 unit Insulin Human Regular (Humulin R Low) 0 units SC ACHS [facility] PRN Reason: Protocol Last Admin: 06/01/17 17:51 Dose: 3 units Linezolid (Zyvox) 600 mg PO BID [facility] PRN Reason: Protocol Stop: 06/08/17 12:51 Last Admin: 06/01/17 17:53 Dose: 600 mg Losartan Potassium (Cozaar) 100 mg PO DAILY [facility] Last Admin: 06/01/17 10:15 Dose: 100 mg Mupirocin (Bactroban Ointment) 0 gm TOP BID [facility] Last Admin: 06/01/17 17:50 Dose: Not Given Nystatin (Nystop Topical Powder) 0 gm TOP BID [facility] Last Admin: 06/01/17 17:51 Dose: 1 applic Ondansetron HCl (Zofran Inj) 4 mg IVP Q4H PRN PRN Reason: Nausea/Vomiting Oxychlorosene Sodium (Clorpactin Wcs-90) 2 gm TOP DAILY [facility] Pantoprazole Sodium (Protonix Ec Tab) 40 mg PO 0600 [facility] Last Admin: 06/01/17 10:18 Dose: 40 mg - Labs Labs: 06/01/17 06:55 06/01/17 08:40 PT 11.4 Seconds (9.9-11.8) 05/30/17 01:00 INR 1.06 (0.93-1.08) 05/30/17 01:00 APTT 28.4 Seconds (23.7-30.8) 05/30/17 01:00 - Additional Findings Additional findings: - Constitutional Appears: Well, Non-toxic, No Acute Distress - Head Exam Head Exam: ATRAUMATIC, NORMAL INSPECTION - Eye Exam Eye Exam: EOMI, Normal appearance, PERRL - ENT Exam ENT Exam: Mucous Membranes Moist, Normal Exam - Neck Exam Neck Exam: Normal Inspection - Respiratory Exam Respiratory Exam: Clear to Ausculation Bilateral, NORMAL BREATHING PATTERN. absent: Rales, Rhonchi, Wheezes - Cardiovascular Exam Cardiovascular Exam: RRR. absent: Murmur - GI/Abdominal Exam GI & Abdominal Exam: Soft, Normal Bowel Sounds. absent: Distended, Tenderness - Extremities Exam Extremities Exam: Pedal Edema Additional comments: RLE dressed (c/d/i) hyperpigmentation w/ some peeling on both feet - Back Exam Back Exam: NORMAL INSPECTION - Neurological Exam Neurological Exam: Alert, Awake, Oriented x3 Assessment and Plan - Assessment and Plan (Free Text) Assessment: 71 yo Divehi speaking F with PMH of DM, HTN, medication noncompliance presents to ER, sent by cruise ship physician for hyperglycemia, leukocytosis, lactic acidosis, HTN, and vomiting. Found to have septic likely 2/2 UTI. Later discovered to have R hallux abscess and cellulitis of buttox skin. r/o osteo Plan: 1. R hallux abscess/cellulitis, osteo likely present - MRI suspicious for osteomyelitis vs bone marrow reaction - on Zyvox and Merrem - ID consulted, recs appreciated - Podiatry consulted, recs appreciated - pt is afebrile currently - Tylenol PRN - WBC improving 2. Sepsis likely 2/2 UTI and cellulitis - on Zyvox and Meropenem - Ucx growing klebsiella - Wound cx growing G+cocci - BCx no growth after 48hrs - CXR showed no acute findings - Bactroban ointment - oxychlorosene 3. LE swelling - LE doppler showed no DVT b/l - LE arterial MELITON and PVR are normal - likely lymphedema 4. Buttox redness - nystatin powder apply 5. Hx DM2 - Levemir 15u HS - ISS LOW - accucheck ACHS - Zofran for nausea - Carb consistent diet 6. HTN - Hypertensive urgency/emergency prior to presentation, resolved - Restart home Losartan and HCTZ - Continue to monitor CCD Lovenox/PTX Patient was seen, evaluated and discussed with attending, Dr. Silviano Ayala PGY1 <Roberto Carlos Shore B - Last Filed: 06/12/17 18:15> Objective - Vital Signs/Intake and Output Vital Signs (last 24 hours): Temp Pulse Resp BP Pulse Ox 97.6 F 85 20 161/93 H 98 06/09/17 08:47 06/09/17 08:47 06/09/17 08:47 06/09/17 08:47 06/09/17 08:47 - Labs Labs: 06/09/17 07:37 06/09/17 07:37 PT 11.4 Seconds (9.9-11.8) 05/30/17 01:00 INR 1.06 (0.93-1.08) 05/30/17 01:00 APTT 28.4 Seconds (23.7-30.8) 05/30/17 01:00 Attending/Attestation - Attestation I have personally seen and examined this patient.: Yes I have fully participated in the care of the patient.: Yes I have reviewed all pertinent clinical information, including history, physical exam and plan: Yes Notes (Text): I have seen and examined the patient at bedside. Agree with the above note with the following additions/ exceptions: Briefly this is 71 year old Divehi female who was [place] cruise [place] with history of HTN, obesity, DM-2 on oral hypoglycemics who was brought for evaluation of N,V, lethargy and found to have hyperosmolar non ketotic state with resolution of AG after IVF administration. She was also found to have sepsis secondary to UTI and right foot hallux cellulitis vs osteomyelitis. Will order MRI to r/o osteomyelitis, LE to r/o DVT and MELITON to eval PVD. Patient is on meropenem and vancomycin. Start nystatin powder for tinea cruris. Continue BP meds and levemir. Hba1c is pending at this time. Patient was explained about the diagnosis and plan with the help of boom stick man. Dr Roberto Carlos Shore
--- NOTE | 2017-06-01 20:30 | CARD ---
APPROVED REPORT EKG Measurement Heart [id number] ID [id number] <Conclusion> Normal sinus rhythm Possible Anterolateral infarct, age undetermined Abnormal ECG
[2017-06-01] MEDS: Insulin Detemir 100 units/ml Vial (Levemir) SC SCH (22:32)
[2017-06-02 07:22] LABS: TROPONIN I 0.04 ng/mL
[2017-06-02 07:23] LABS: ALB/GLOB RATIO 0.9 (1.1-1.8); ALKALINE PHOSPHATASE 94 U/L (38-126); ALT/SGPT 29 U/L (7-56); AST/SGOT 16 U/L (14-36); BILIRUBIN,TOTAL 0.3 mg/dL (0.2-1.3); BLOOD UREA NITROGEN 12 mg/dL (7-21); CALCIUM 8.2 mg/dL (8.4-10.5); CARBON DIOXIDE 29 mmol/L (21-33); CHLORIDE 101 mmol/L (98-107); GFR AFRICAN-AMERICAN > 60; GLUCOSE,RANDOM 230 mg/dL (70-110); POTASSIUM 3.2 mmol/L (3.6-5.0); SODIUM 138 mmol/L (132-148); TOTAL PROTEIN 5.6 g/dL (5.8-8.3)
[2017-06-02 07:35] LABS: BASO # 0.01 K/mm3 (0.0-2.0); BASO % 0.1 % (0.0-3.0); EOS # 0.2 (0.0-0.7); EOS % 3.4 % (1.5-5.0); GRAN # 4.1 (1.4-6.5); GRAN % 61.4 % (50.0-68.0); HEMATOCRIT 34.9 % (36.0-48.0); LYMPH # 1.8 (1.2-3.4); LYMPH % 26.9 % (22.0-35.0); MEAN CELL VOLUME 84.5 fl (80.0-105.0); MEAN CORPUSCULAR HEMOGLOBIN 29.3 pg (25.0-35.0); MEAN CORPUSCULAR HGB CONC 34.7 g/dl (31.0-37.0); MEAN PLATELET VOLUME 10.4 fl (7.0-11.0); MONO # 0.6 (0.1-0.6); MONO % 8.2 % (1.0-6.0); RED CELL DISTRIBUTION WIDTH 13.1 % (11.5-14.5); WHITE BLOOD COUNT 6.7 10^3/ul (4.5-11.0)
[2017-06-02] MEDS: Insulin Reg-LOW-Coverage SC SCH ×4 (08:03→21:21)
[2017-06-02] MEDS: Oxychlorosene Topical 2 gm Packet TOP SCH (10:00)
[2017-06-02] MEDS: Enoxaparin 40 mg Syringe SC SCH (10:04)
[2017-06-02] MEDS: Nystatin 100,000 Units/gm Topical Pow(15 gm) TOP SCH ×2 (10:05→18:43)
[2017-06-02] MEDS ORDERED: Potassium Chloride 20 mEq ER Tab PO ONE ×2 (13:07→15:00)
--- NOTE | 2017-06-02 13:43 | CP.PCM.PN ---
Subjective - Date & Time of Evaluation Date of Evaluation: 06/02/17 Time of Evaluation: 11:35 - Subjective Subjective: Comfortable in bed, not in distress, less pain in the right foot, no fevers overnight. Objective - Vital Signs/Intake and Output Vital Signs (last 24 hours): Temp Pulse Resp BP Pulse Ox 97.8 F 72 20 167/84 H 97 06/02/17 09:19 06/02/17 09:19 06/02/17 09:19 06/02/17 09:19 06/02/17 09:19 Intake and Output: 06/02/17 06/02/17 06:59 18:59 Intake Total 840 Output Total 750 Balance 90 - Medications Medications: Current Medications Acetaminophen (Tylenol 325mg Tab) 650 mg PO Q6H PRN PRN Reason: Fever >100.4 F Enoxaparin Sodium (Lovenox) 40 mg SC DAILY [facility] PRN Reason: Protocol Last Admin: 06/01/17 10:16 Dose: 40 mg Hydrochlorothiazide (Microzide) 12.5 mg PO DAILY [facility] Last Admin: 06/01/17 10:17 Dose: 12.5 mg Meropenem 1g/NS 100mL IVPB (Meropenem 1g/Ns 100ml Ivpb) 1 gm in 100 mls @ 100 mls/hr IVPB Q8 [facility] PRN Reason: Protocol Stop: 06/08/17 12:51 Last Admin: 06/01/17 22:27 Dose: 100 mls/hr Insulin Detemir (Levemir) 15 unit SC HS [facility] Last Admin: 06/01/17 22:32 Dose: 15 unit Insulin Human Regular (Humulin R Low) 0 units SC ACHS [facility] PRN Reason: Protocol Last Admin: 06/01/17 22:33 Dose: 3 units Linezolid (Zyvox) 600 mg PO BID [facility] PRN Reason: Protocol Stop: 06/08/17 12:51 Last Admin: 06/01/17 17:53 Dose: 600 mg Losartan Potassium (Cozaar) 100 mg PO DAILY [facility] Last Admin: 06/01/17 10:15 Dose: 100 mg Mupirocin (Bactroban Ointment) 0 gm TOP BID [facility] Last Admin: 06/01/17 17:50 Dose: Not Given Nystatin (Nystop Topical Powder) 0 gm TOP BID [facility] Last Admin: 06/01/17 17:51 Dose: 1 applic Ondansetron HCl (Zofran Inj) 4 mg IVP Q4H PRN PRN Reason: Nausea/Vomiting Oxychlorosene Sodium (Clorpactin Wcs-90) 2 gm TOP DAILY [facility] Pantoprazole Sodium (Protonix Ec Tab) 40 mg PO 0600 [facility] Last Admin: 06/01/17 10:18 Dose: 40 mg - Labs Labs: 06/02/17 06:00 06/02/17 06:00 PT 11.4 Seconds (9.9-11.8) 05/30/17 01:00 INR 1.06 (0.93-1.08) 05/30/17 01:00 APTT 28.4 Seconds (23.7-30.8) 05/30/17 01:00 - Constitutional Appears: Non-toxic, No Acute Distress - Head Exam Head Exam: NORMAL INSPECTION - ENT Exam ENT Exam: Mucous Membranes Moist - Neck Exam Neck Exam: absent: Meningismus - Respiratory Exam Respiratory Exam: Decreased Breath Sounds - Cardiovascular Exam Cardiovascular Exam: +S1, +S2 - GI/Abdominal Exam GI & Abdominal Exam: Soft. absent: Tenderness - Extremities Exam Additional comments: right foot with dressings in place Assessment and Plan - Assessment and Plan (Free Text) Plan: Assessment Sepsis due to Right foot hallux skin and soft tissue infection with probable osteomyelitis of the distal and proximal phalanges gram negative bacteriuria without symptoms (i.e. asymptomatic) DM HTN obesity with BMI 30 Plan continue Zyvox and Merrem pending final wound cx results (showing E. faecalis) - if this is the only bacteria that grows, the patient can be continued on PO Zyvox for at least 4 weeks; MELITON's are normal follow up further plans of Podiatry - patient is to return via cruise ship back to [facility] will monitor clinically while the patient is in the hospital
[2017-06-02] MEDS: Meropenem 1g/NS 100mL IVPB 1 GM/100 ML PIGGYBACK IVPB SCH ×2 (14:32→21:23)
--- NOTE | 2017-06-02 15:49 | CP.PCM.PN ---
<EstephaniaPammalka - Last Filed: 06/02/17 16:33> Subjective - Date & Time of Evaluation Date of Evaluation: 06/02/17 Time of Evaluation: 15:48 - Subjective Subjective: Podiatry Progress Note - Dr. Rob 71 year old Faroese speaking female patient PMHx uncontrolled DM, HTN seen at bedside with attending, Dr. Rob, for right great toe cellulitis. HPI was obtained using restorer lace and textiles (wood mechanist #[id number]). Patient seen sleeping, NAD. Patient denies any acute events overnight. Patient states her foot was sore after yesterday's visit, but denies any pain to her right great toe today. Patient again states she needs to return back on the cruise ship next week Thursday, and is aware of the severity of her foot infection. Patient states she needs paperwork from the hospital in order to board back on the cruise ship, and requests her medical records to bring to her doctor in [place]. Patient denies N/V/F/D/C/SOB/calf pain. No other pedal complaints at this time. Objective - Vital Signs/Intake and Output Vital Signs (last 24 hours): Temp Pulse Resp BP Pulse Ox 97.8 F 72 20 167/84 H 97 06/02/17 09:19 06/02/17 09:19 06/02/17 09:19 06/02/17 09:19 06/02/17 09:19 Intake and Output: 06/02/17 06/02/17 06:59 18:59 Intake Total 840 720 Output Total 750 200 Balance 90 520 - Medications Medications: Current Medications Acetaminophen (Tylenol 325mg Tab) 650 mg PO Q6H PRN PRN Reason: Fever >100.4 F Enoxaparin Sodium (Lovenox) 40 mg SC DAILY [facility] PRN Reason: Protocol Last Admin: 06/02/17 10:04 Dose: 40 mg Hydrochlorothiazide (Microzide) 12.5 mg PO DAILY [facility] Last Admin: 06/02/17 10:05 Dose: 12.5 mg Meropenem 1g/NS 100mL IVPB (Meropenem 1g/Ns 100ml Ivpb) 1 gm in 100 mls @ 100 mls/hr IVPB Q8 [facility] PRN Reason: Protocol Stop: 06/08/17 12:51 Last Admin: 06/02/17 14:32 Dose: 100 mls/hr Insulin Detemir (Levemir) 15 unit SC HS [facility] Last Admin: 06/01/17 22:32 Dose: 15 unit Insulin Human Regular (Humulin R Low) 0 units SC ACHS [facility] PRN Reason: Protocol Last Admin: 06/02/17 12:15 Dose: 2 units Linezolid (Zyvox) 600 mg PO BID [facility] PRN Reason: Protocol Stop: 06/08/17 12:51 Last Admin: 06/02/17 10:06 Dose: 600 mg Losartan Potassium (Cozaar) 100 mg PO DAILY [facility] Last Admin: 06/02/17 10:05 Dose: 100 mg Metformin HCl (Glucophage) 850 mg PO BID [facility] Last Admin: 06/02/17 12:15 Dose: 850 mg Mupirocin (Bactroban Ointment) 0 gm TOP BID [facility] Last Admin: 06/02/17 10:02 Dose: Not Given Nystatin (Nystop Topical Powder) 0 gm TOP BID [facility] Last Admin: 06/02/17 10:05 Dose: 1 applic Ondansetron HCl (Zofran Inj) 4 mg IVP Q4H PRN PRN Reason: Nausea/Vomiting Oxychlorosene Sodium (Clorpactin Wcs-90) 2 gm TOP DAILY [facility] Last Admin: 06/02/17 10:00 Dose: 2 gm Pantoprazole Sodium (Protonix Ec Tab) 40 mg PO 0600 [facility] Last Admin: 06/01/17 10:18 Dose: 40 mg - Labs Labs: 06/02/17 06:00 06/02/17 06:00 PT 11.4 Seconds (9.9-11.8) 05/30/17 01:00 INR 1.06 (0.93-1.08) 05/30/17 01:00 APTT 28.4 Seconds (23.7-30.8) 05/30/17 01:00 - Constitutional Appears: Well, Non-toxic, No Acute Distress - Extremities Exam Additional comments: VASC: DP and PT pulses palpable 2/4 b/l. CFT <3 seconds to all digits x10. TG warm to warm b/l with increase in warmth to right hallux. Non-pitting edema noted to right hallux. NEURO: Gross sensation diminished b/l. DERM: Erythema noted to right hallux extending proximally to 1st metatarsal head. Ulceration noted to plantarmedial IPJ measuring approximately 0.5 x 0.3 x 0.1 cm which tunnels dorsoplantarly to proximal nail fold. No purulence was expressed this visit; +malodor, +probe to bone. Nails 1-5 b/l are thickened and dystrophic with the presence of subungual debris. ORTHO: No pain on palpation to right hallux. 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 Granados Chart, vitals, labs reviewed = afebrile; WBC WNL @ 6.7 Ulcer cleansed with Clorpactin/Saline solution and packed with 1/4" iodoform packing strip. Right foot dressed with DSD Continue conservative care Right hallux wound culture results reviewed: enterococcus faecalis growth Continue WBAT RLE in surgical shoe Per ID, patient to continue Zyvox and Merrem. Patient can be continued on PO Zyvox for at least 4 weeks Patient in need of proper documentation in order to board cruise ship. Without documents stating patient is fit to leave hospital, patient will unable to board back on ship. Will follow up with wrapper caser Podiatry will continue to follow patient while in house <Neal Rob - Last Filed: 06/03/17 11:36> Objective - Vital Signs/Intake and Output Vital Signs (last 24 hours): Temp Pulse Resp BP Pulse Ox 98.8 F 83 20 146/79 97 06/03/17 06:00 06/03/17 06:00 06/03/17 06:00 06/03/17 06:00 06/03/17 06:00 Intake and Output: 06/03/17 06/03/17 06:59 18:59 Intake Total 540 Output Total 1101 Balance -561 - Medications Medications: Current Medications Acetaminophen (Tylenol 325mg Tab) 650 mg PO Q6H PRN PRN Reason: Fever >100.4 F Enoxaparin Sodium (Lovenox) 40 mg SC DAILY [facility] PRN Reason: Protocol Last Admin: 06/03/17 10:58 Dose: Not Given Hydrochlorothiazide (Microzide) 12.5 mg PO DAILY [facility] Last Admin: 06/03/17 10:07 Dose: 12.5 mg Meropenem 1g/NS 100mL IVPB (Meropenem 1g/Ns 100ml Ivpb) 1 gm in 100 mls @ 100 mls/hr IVPB Q8 [facility] PRN Reason: Protocol Stop: 06/08/17 12:51 Last Admin: 06/03/17 05:34 Dose: 100 mls/hr Dextrose/Sodium Chloride (Dextrose 5%/0.45% Ns 1000 Ml) 1,000 mls @ 20 mls/hr IV .Q24H [facility] Last Admin: 06/03/17 10:57 Dose: 20 mls/hr Insulin Human Regular (Humulin R Low) 0 units SC ACHS [facility] PRN Reason: Protocol Last Admin: 06/03/17 10:58 Dose: Not Given Linezolid (Zyvox) 600 mg PO BID [facility] PRN Reason: Protocol Stop: 06/08/17 12:51 Last Admin: 06/03/17 10:07 Dose: 600 mg Losartan Potassium (Cozaar) 100 mg PO DAILY [facility] Last Admin: 06/03/17 10:06 Dose: 100 mg Metformin HCl (Glucophage) 850 mg PO BID [facility] Last Admin: 06/03/17 10:06 Dose: 850 mg Mupirocin (Bactroban Ointment) 0 gm TOP BID [facility] Last Admin: 06/02/17 18:42 Dose: Not Given Nystatin (Nystop Topical Powder) 0 gm TOP BID [facility] Last Admin: 06/03/17 10:59 Dose: 1 applic Ondansetron HCl (Zofran Inj) 4 mg IVP Q4H PRN PRN Reason: Nausea/Vomiting Oxychlorosene Sodium (Clorpactin Wcs-90) 2 gm TOP DAILY [facility] Last Admin: 06/02/17 10:00 Dose: 2 gm Pantoprazole Sodium (Protonix Ec Tab) 40 mg PO 0600 [facility] Last Admin: 06/03/17 05:34 Dose: 40 mg - Labs Labs: 06/03/17 06:00 06/03/17 06:00 PT 11.4 Seconds (9.9-11.8) 05/30/17 01:00 INR 1.06 (0.93-1.08) 05/30/17 01:00 APTT 28.4 Seconds (23.7-30.8) 05/30/17 01:00 Attending/Attestation - Attestation I have personally seen and examined this patient.: Yes I have fully participated in the care of the patient.: Yes I have reviewed all pertinent clinical information, including history, physical exam and plan: Yes
--- NOTE | 2017-06-02 18:38 | CP.PCM.PN ---
Addendum entered and electronically signed by CORY AYALA DO 06/02/17 18:39 : The cruise ship was contacted and it was stated that the patient would not be leaving till the , therefore d/c planning is put off and IV abx is continued. Original Note: <CORY AYALA - Last Filed: 06/02/17 18:30> Subjective - Date & Time of Evaluation Date of Evaluation: 06/02/17 Time of Evaluation: 10:35 - Subjective Subjective: patient was seen and examined at bedside. she offers no complaints and denies any pain in her leg, chest and belly. also denies fevers, headaches. Objective - Vital Signs/Intake and Output Vital Signs (last 24 hours): Temp Pulse Resp BP Pulse Ox 98.6 F 77 20 170/67 H 98 06/02/17 16:00 06/02/17 16:00 06/02/17 16:00 06/02/17 16:00 06/02/17 16:00 Intake and Output: 06/02/17 06/02/17 06:59 18:59 Intake Total 840 720 Output Total 750 200 Balance 90 520 - Medications Medications: Current Medications Acetaminophen (Tylenol 325mg Tab) 650 mg PO Q6H PRN PRN Reason: Fever >100.4 F Enoxaparin Sodium (Lovenox) 40 mg SC DAILY [facility] PRN Reason: Protocol Last Admin: 06/02/17 10:04 Dose: 40 mg Hydrochlorothiazide (Microzide) 12.5 mg PO DAILY [facility] Last Admin: 06/02/17 10:05 Dose: 12.5 mg Meropenem 1g/NS 100mL IVPB (Meropenem 1g/Ns 100ml Ivpb) 1 gm in 100 mls @ 100 mls/hr IVPB Q8 [facility] PRN Reason: Protocol Stop: 06/08/17 12:51 Last Admin: 06/02/17 14:32 Dose: 100 mls/hr Insulin Detemir (Levemir) 15 unit SC HS [facility] Last Admin: 06/01/17 22:32 Dose: 15 unit Insulin Human Regular (Humulin R Low) 0 units SC ACHS [facility] PRN Reason: Protocol Last Admin: 06/02/17 12:15 Dose: 2 units Linezolid (Zyvox) 600 mg PO BID [facility] PRN Reason: Protocol Stop: 06/08/17 12:51 Last Admin: 06/02/17 10:06 Dose: 600 mg Losartan Potassium (Cozaar) 100 mg PO DAILY [facility] Last Admin: 06/02/17 10:05 Dose: 100 mg Metformin HCl (Glucophage) 850 mg PO BID [facility] Last Admin: 06/02/17 12:15 Dose: 850 mg Mupirocin (Bactroban Ointment) 0 gm TOP BID [facility] Last Admin: 06/02/17 10:02 Dose: Not Given Nystatin (Nystop Topical Powder) 0 gm TOP BID [facility] Last Admin: 06/02/17 10:05 Dose: 1 applic Ondansetron HCl (Zofran Inj) 4 mg IVP Q4H PRN PRN Reason: Nausea/Vomiting Oxychlorosene Sodium (Clorpactin Wcs-90) 2 gm TOP DAILY [facility] Last Admin: 06/02/17 10:00 Dose: 2 gm Pantoprazole Sodium (Protonix Ec Tab) 40 mg PO 0600 [facility] Last Admin: 06/01/17 10:18 Dose: 40 mg - Labs Labs: 06/02/17 06:00 06/02/17 06:00 PT 11.4 Seconds (9.9-11.8) 05/30/17 01:00 INR 1.06 (0.93-1.08) 05/30/17 01:00 APTT 28.4 Seconds (23.7-30.8) 05/30/17 01:00 - Additional Findings Additional findings: - Constitutional Appears: Well, Non-toxic, No Acute Distress - Head Exam Head Exam: ATRAUMATIC, NORMAL INSPECTION - Eye Exam Eye Exam: EOMI, Normal appearance, PERRL - ENT Exam ENT Exam: Mucous Membranes Moist, Normal Exam - Neck Exam Neck Exam: Normal Inspection - Respiratory Exam Respiratory Exam: Clear to Ausculation Bilateral, NORMAL BREATHING PATTERN. absent: Rales, Rhonchi, Wheezes - Cardiovascular Exam Cardiovascular Exam: RRR. absent: Murmur - GI/Abdominal Exam GI & Abdominal Exam: Soft, Normal Bowel Sounds. absent: Distended, Tenderness - Extremities Exam Extremities Exam: Pedal Edema Additional comments: RLE swollen (2+) R big toe is wrapped in gauze hyperpigmentation w/ some peeling on both feet, improved than prior exams - Back Exam Back Exam: NORMAL INSPECTION - Neurological Exam Neurological Exam: Alert, Awake, Oriented x3 Assessment and Plan - Assessment and Plan (Free Text) Assessment: 71 yo Central African speaking F with PMH of DM, HTN, medication noncompliance presents to ER, sent by cruise ship physician for hyperglycemia, leukocytosis, lactic acidosis, HTN, and vomiting. Found to have septic likely 2/2 UTI 2/2 klebsiella. Later discovered to have R hallux enterococcus faecalis infectious w / possible underlying osteomyelitis Plan: 1. R hallux abscess/cellulitis, osteo likely present - MRI suspicious for osteomyelitis vs bone marrow reaction - on Zyvox and Merrem - ID consulted, recs appreciated - Podiatry consulted, and are managing the RLE ulcer - pt is afebrile currently - Tylenol PRN - WBC improving 2. Sepsis likely 2/2 UTI and cellulitis - on Zyvox PO and IV Meropenem - Ucx growing klebsiella - Wound cx growing enterococcus faecalis - BCx no growth after 3 days - CXR showed no acute findings - Bactroban ointment - oxychlorosene 3. LE swelling - LE doppler showed no DVT b/l - LE arterial MELITON and PVR are normal - likely lymphedema 4. Buttox redness - nystatin powder apply 5. Hx DM2 - Levemir 15u HS - ISS LOW - accucheck ACHS - Zofran for nausea - Carb consistent diet 6. HTN - Hypertensive urgency/emergency prior to presentation, resolved - Restart home Losartan and HCTZ - Continue to monitor CCD Lovenox/PTX Patient was seen, evaluated and discussed with attending, Dr. Manav Ayala PGY1 <Mackenzie Em - Last Filed: 06/03/17 15:41> Objective - Vital Signs/Intake and Output Vital Signs (last 24 hours): Temp Pulse Resp BP Pulse Ox 98.8 F 83 20 146/79 97 06/03/17 06:00 06/03/17 06:00 06/03/17 06:00 06/03/17 06:00 06/03/17 06:00 Intake and Output: 06/03/17 06/03/17 06:59 18:59 Intake Total 540 540 Output Total 1101 500 Balance -561 40 - Medications Medications: Current Medications Acetaminophen (Tylenol 325mg Tab) 650 mg PO Q6H PRN PRN Reason: Fever >100.4 F Enoxaparin Sodium (Lovenox) 40 mg SC DAILY [facility] PRN Reason: Protocol Last Admin: 06/03/17 10:58 Dose: Not Given Hydrochlorothiazide (Microzide) 12.5 mg PO DAILY [facility] Last Admin: 06/03/17 10:07 Dose: 12.5 mg Meropenem 1g/NS 100mL IVPB (Meropenem 1g/Ns 100ml Ivpb) 1 gm in 100 mls @ 100 mls/hr IVPB Q8 [facility] PRN Reason: Protocol Stop: 06/08/17 12:51 Last Admin: 06/03/17 05:34 Dose: 100 mls/hr Insulin Human Regular (Humulin R Low) 0 units SC ACHS [facility] PRN Reason: Protocol Last Admin: 06/03/17 10:58 Dose: Not Given Linezolid (Zyvox) 600 mg PO BID [facility] PRN Reason: Protocol Stop: 06/08/17 12:51 Last Admin: 06/03/17 10:07 Dose: 600 mg Losartan Potassium (Cozaar) 100 mg PO DAILY [facility] Last Admin: 06/03/17 10:06 Dose: 100 mg Metformin HCl (Glucophage) 850 mg PO BID [facility] Last Admin: 06/03/17 10:06 Dose: 850 mg Mupirocin (Bactroban Ointment) 0 gm TOP BID [facility] Last Admin: 06/02/17 18:42 Dose: Not Given Nystatin (Nystop Topical Powder) 0 gm TOP BID [facility] Last Admin: 06/03/17 10:59 Dose: 1 applic Ondansetron HCl (Zofran Inj) 4 mg IVP Q4H PRN PRN Reason: Nausea/Vomiting Oxychlorosene Sodium (Clorpactin Wcs-90) 2 gm TOP DAILY [facility] Last Admin: 06/02/17 10:00 Dose: 2 gm Pantoprazole Sodium (Protonix Ec Tab) 40 mg PO 0600 [facility] Last Admin: 06/03/17 05:34 Dose: 40 mg - Labs Labs: 06/03/17 06:00 06/03/17 06:00 PT 11.4 Seconds (9.9-11.8) 05/30/17 01:00 INR 1.06 (0.93-1.08) 05/30/17 01:00 APTT 28.4 Seconds (23.7-30.8) 05/30/17 01:00 Attending/Attestation - Attestation I have personally seen and examined this patient.: Yes I have fully participated in the care of the patient.: Yes I have reviewed all pertinent clinical information, including history, physical exam and plan: Yes Notes (Text): 06/03/17 15:36 Attending note; Patient seen and examined with resident. Patient is a 71 year old [place] female who was [place] cruise [place] with history of HTN, obesity,DM-2 , not taking meds is admitted with nausea, vomiting. Admitted for hyperosmolar non ketotic state. currently blood sugar is under control. Started on metformin. Adjust dosage as needed. She was also found to have sepsis secondary to UTI and right big toe osteomyelitis. continue IV meropenem and Zyvox. urine culture showed Klebsiella. Wound culture showed Enterococcus faecalis. Case discussed with ID in detail. Patient was explained about the diagnosis and plan with the help of crusher and binder operator. Case discussed with caser for discharge planning. 06/03/17 15:40
[2017-06-02] MEDS: Insulin Detemir 100 units/ml Vial (Levemir) SC SCH (21:22)
--- NOTE | 2017-06-02 22:32 | CARD ---
APPROVED REPORT EKG Measurement Heart [id number] <Conclusion> Normal sinus rhythm Possible Anterior infarct, age undetermined Abnormal ECG
--- NOTE | 2017-06-02 22:49 | CARD ---
APPROVED REPORT EKG Measurement Heart [id number] <Conclusion> Normal sinus rhythm Possible Anterior infarct, age undetermined Abnormal ECG
[2017-06-03] MEDS: Meropenem 1g/NS 100mL IVPB 1 GM/100 ML PIGGYBACK IVPB SCH ×4 (05:34→22:15)
[2017-06-03] MEDS: Pantoprazole 40 mg EC Tab PO SCH (05:34)
[2017-06-03 06:24] LABS: BASO # 0.02 K/mm3 (0.0-2.0); BASO % 0.3 % (0.0-3.0); EOS # 0.3 (0.0-0.7); EOS % 3.5 % (1.5-5.0); GRAN # 4.77 (1.4-6.5); GRAN % 63.7 % (50.0-68.0); HEMATOCRIT 36.8 % (36.0-48.0); LYMPH # 1.9 (1.2-3.4); LYMPH % 25.2 % (22.0-35.0); MEAN CORPUSCULAR HEMOGLOBIN 29.1 pg (25.0-35.0); MEAN CORPUSCULAR HGB CONC 34.2 g/dl (31.0-37.0); MEAN PLATELET VOLUME 10.4 fl (7.0-11.0); MONO # 0.6 (0.1-0.6); MONO % 7.3 % (1.0-6.0); RED CELL DISTRIBUTION WIDTH 13.2 % (11.5-14.5); WHITE BLOOD COUNT 7.5 10^3/ul (4.5-11.0)
[2017-06-03 06:43] LABS: BLOOD UREA NITROGEN 12 mg/dL (7-21); CALCIUM 8.4 mg/dL (8.4-10.5); CARBON DIOXIDE 30 mmol/L (21-33); CHLORIDE 101 mmol/L (98-107); GFR AFRICAN-AMERICAN > 60; GLUCOSE,RANDOM 126 mg/dL (70-110); POTASSIUM 3.5 mmol/L (3.6-5.0); SODIUM 139 mmol/L (132-148)
[2017-06-03] MEDS ORDERED: Potassium Chloride 20 mEq ER Tab PO STA (08:01)
[2017-06-03] MEDS ORDERED: Potassium Chloride 20 mEq ER Tab PO ONE (10:11)
[2017-06-03] MEDS ORDERED: Dextrose 5%/0.45% NS 1,000 ML IV SCH (10:15)
[2017-06-03] MEDS: Enoxaparin 40 mg Syringe SC SCH (10:58)
[2017-06-03] MEDS: Insulin Reg-LOW-Coverage SC SCH ×4 (10:58→22:30)
[2017-06-03] MEDS: Nystatin 100,000 Units/gm Topical Pow(15 gm) TOP SCH (10:59)
--- NOTE | 2017-06-03 12:31 | CP.PCM.PN ---
Subjective - Date & Time of Evaluation Date of Evaluation: 06/03/17 Time of Evaluation: 11:25 - Subjective Subjective: Comfortable in bed, no fevers, for possible OR this week for the right foot. Objective - Vital Signs/Intake and Output Vital Signs (last 24 hours): Temp Pulse Resp BP Pulse Ox 98.8 F 83 20 146/79 97 06/03/17 06:00 06/03/17 06:00 06/03/17 06:00 06/03/17 06:00 06/03/17 06:00 Intake and Output: 06/03/17 06/03/17 06:59 18:59 Intake Total 540 Output Total 1101 Balance -561 - Medications Medications: Current Medications Acetaminophen (Tylenol 325mg Tab) 650 mg PO Q6H PRN PRN Reason: Fever >100.4 F Enoxaparin Sodium (Lovenox) 40 mg SC DAILY [facility] PRN Reason: Protocol Last Admin: 06/02/17 10:04 Dose: 40 mg Hydrochlorothiazide (Microzide) 12.5 mg PO DAILY [facility] Last Admin: 06/03/17 10:07 Dose: 12.5 mg Meropenem 1g/NS 100mL IVPB (Meropenem 1g/Ns 100ml Ivpb) 1 gm in 100 mls @ 100 mls/hr IVPB Q8 [facility] PRN Reason: Protocol Stop: 06/08/17 12:51 Last Admin: 06/03/17 05:34 Dose: 100 mls/hr Dextrose/Sodium Chloride (Dextrose 5%/0.45% Ns 1000 Ml) 1,000 mls @ 20 mls/hr IV .Q24H [facility] Insulin Human Regular (Humulin R Low) 0 units SC ACHS [facility] PRN Reason: Protocol Last Admin: 06/02/17 21:21 Dose: Not Given Linezolid (Zyvox) 600 mg PO BID [facility] PRN Reason: Protocol Stop: 06/08/17 12:51 Last Admin: 06/03/17 10:07 Dose: 600 mg Losartan Potassium (Cozaar) 100 mg PO DAILY [facility] Last Admin: 06/03/17 10:06 Dose: 100 mg Metformin HCl (Glucophage) 850 mg PO BID [facility] Last Admin: 06/03/17 10:06 Dose: 850 mg Mupirocin (Bactroban Ointment) 0 gm TOP BID [facility] Last Admin: 06/02/17 18:42 Dose: Not Given Nystatin (Nystop Topical Powder) 0 gm TOP BID [facility] Last Admin: 06/02/17 18:43 Dose: 1 applic Ondansetron HCl (Zofran Inj) 4 mg IVP Q4H PRN PRN Reason: Nausea/Vomiting Oxychlorosene Sodium (Clorpactin Wcs-90) 2 gm TOP DAILY [facility] Last Admin: 06/02/17 10:00 Dose: 2 gm Pantoprazole Sodium (Protonix Ec Tab) 40 mg PO 0600 [facility] Last Admin: 06/03/17 05:34 Dose: 40 mg - Labs Labs: 06/03/17 06:00 06/03/17 06:00 PT 11.4 Seconds (9.9-11.8) 05/30/17 01:00 INR 1.06 (0.93-1.08) 05/30/17 01:00 APTT 28.4 Seconds (23.7-30.8) 05/30/17 01:00 - Constitutional Appears: Non-toxic, No Acute Distress - Head Exam Head Exam: NORMAL INSPECTION - ENT Exam ENT Exam: Mucous Membranes Moist - Neck Exam Neck Exam: absent: Meningismus - Respiratory Exam Respiratory Exam: Decreased Breath Sounds - Cardiovascular Exam Cardiovascular Exam: +S1, +S2 - GI/Abdominal Exam GI & Abdominal Exam: Soft. absent: Tenderness Assessment and Plan - Assessment and Plan (Free Text) Plan: Assessment Sepsis due to Right foot hallux skin and soft tissue infection with probable osteomyelitis of the distal and proximal phalanges; so far growing E. faecalis gram negative bacteriuria without symptoms (i.e. asymptomatic) DM HTN obesity with BMI 30 Plan continue Zyvox and Merrem pending final wound cx results (showing E. faecalis); MELTION's are normal - for possible OR this week and would await OR cx and pathology will continue to monitor clinically
--- NOTE | 2017-06-03 15:26 | CP.PCM.PN ---
<Jaison Best - Last Filed: 06/03/17 15:20> Subjective - Date & Time of Evaluation Date of Evaluation: 06/03/17 Time of Evaluation: 10:00 - Subjective Subjective: Podiatry Progress Note - Dr. Granados 71 year old [place] speaking female patient PMHx uncontrolled DM, HTN seen at bedside for right great toe cellulitis. HPI obtained using [place] head of global strategic partnerships ( healthcare interpreter #[id number]). Patient seen resting comfortably, NAD. Patient denies any acute events overnight. Patient denies any pain to her foot during this visit. Patient denies N/V/F/D/C/SOB/calf pain. No other pedal complaints at this time. Objective - Vital Signs/Intake and Output Vital Signs (last 24 hours): Temp Pulse Resp BP Pulse Ox 98.8 F 83 20 146/79 97 06/03/17 06:00 06/03/17 06:00 06/03/17 06:00 06/03/17 06:00 06/03/17 06:00 Intake and Output: 06/03/17 06/03/17 06:59 18:59 Intake Total 540 540 Output Total 1101 500 Balance -561 40 - Medications Medications: Current Medications Acetaminophen (Tylenol 325mg Tab) 650 mg PO Q6H PRN PRN Reason: Fever >100.4 F Enoxaparin Sodium (Lovenox) 40 mg SC DAILY [facility] PRN Reason: Protocol Last Admin: 06/03/17 10:58 Dose: Not Given Hydrochlorothiazide (Microzide) 12.5 mg PO DAILY [facility] Last Admin: 06/03/17 10:07 Dose: 12.5 mg Meropenem 1g/NS 100mL IVPB (Meropenem 1g/Ns 100ml Ivpb) 1 gm in 100 mls @ 100 mls/hr IVPB Q8 [facility] PRN Reason: Protocol Stop: 06/08/17 12:51 Last Admin: 06/03/17 05:34 Dose: 100 mls/hr Insulin Human Regular (Humulin R Low) 0 units SC ACHS [facility] PRN Reason: Protocol Last Admin: 06/03/17 10:58 Dose: Not Given Linezolid (Zyvox) 600 mg PO BID [facility] PRN Reason: Protocol Stop: 06/08/17 12:51 Last Admin: 06/03/17 10:07 Dose: 600 mg Losartan Potassium (Cozaar) 100 mg PO DAILY [facility] Last Admin: 06/03/17 10:06 Dose: 100 mg Metformin HCl (Glucophage) 850 mg PO BID [facility] Last Admin: 06/03/17 10:06 Dose: 850 mg Mupirocin (Bactroban Ointment) 0 gm TOP BID [facility] Last Admin: 06/02/17 18:42 Dose: Not Given Nystatin (Nystop Topical Powder) 0 gm TOP BID [facility] Last Admin: 06/03/17 10:59 Dose: 1 applic Ondansetron HCl (Zofran Inj) 4 mg IVP Q4H PRN PRN Reason: Nausea/Vomiting Oxychlorosene Sodium (Clorpactin Wcs-90) 2 gm TOP DAILY [facility] Last Admin: 06/02/17 10:00 Dose: 2 gm Pantoprazole Sodium (Protonix Ec Tab) 40 mg PO 0600 [facility] Last Admin: 06/03/17 05:34 Dose: 40 mg - Labs Labs: 06/03/17 06:00 06/03/17 06:00 PT 11.4 Seconds (9.9-11.8) 05/30/17 01:00 INR 1.06 (0.93-1.08) 05/30/17 01:00 APTT 28.4 Seconds (23.7-30.8) 05/30/17 01:00 - Constitutional Appears: Well, Non-toxic, No Acute Distress - Extremities Exam Additional comments: VASC: DP and PT pulses palpable 2/4 b/l. CFT <3 seconds to all digits x10. TG warm to warm b/l with increase in warmth to right hallux. Non-pitting edema noted to right hallux. NEURO: Gross sensation diminished b/l. DERM: Erythema noted to right hallux extending proximally to 1st metatarsal head. Ulceration noted to plantarmedial IPJ measuring approximately 0.5 x 0.3 x 0.1 cm which tunnels dorsoplantarly to proximal nail fold. Approximately 1cc of purulence was expressed from plantarmedial IPJ ulceration this visit; +malodor, +probe to bone. Nails 1-5 b/l are thickened and dystrophic with the presence of subungual debris. ORTHO: No pain on palpation to right hallux. 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 Granados Chart, vitals, labs reviewed = afebrile, WBC @ 7.5 Discussed with patient morbidity associated with right great toe abscess + OM, and recommend surgical intervention to remove remaining purulence. Patient demonstrates verbal understanding. - To OR tomorrow, 06/04/17 @ 7:30AM for right hallux I&D - NPO past mn - Consent form signed after procedure was explained in detail including risks, benefits, complications, and alternatives to procedure Ulcer cleansed with Clorpactin/Saline solution and dressed with DSD Continue WBAT RLE in surgical shoe Per ID, patient to continue Zyvox and Merrem. Patient can be continued on PO Zyvox for at least 4 weeks Podiatry will continue to follow patient while in house <Mague Granados - Last Filed: 06/14/17 14:33> Objective - Vital Signs/Intake and Output Vital Signs (last 24 hours): Temp Pulse Resp BP Pulse Ox 97.6 F 85 20 161/93 H 98 06/09/17 08:47 06/09/17 08:47 06/09/17 08:47 06/09/17 08:47 06/09/17 08:47 - Labs Labs: 06/09/17 07:37 06/09/17 07:37 PT 11.4 Seconds (9.9-11.8) 05/30/17 01:00 INR 1.06 (0.93-1.08) 05/30/17 01:00 APTT 28.4 Seconds (23.7-30.8) 05/30/17 01:00 Attending/Attestation - Attestation I have personally seen and examined this patient.: Yes I have fully participated in the care of the patient.: Yes I have reviewed all pertinent clinical information, including history, physical exam and plan: Yes
--- NOTE | 2017-06-03 19:34 | CP.PCM.PN ---
<CORY AYALA - Last Filed: 06/03/17 19:25> Subjective - Date & Time of Evaluation Date of Evaluation: 06/03/17 Time of Evaluation: 07:30 - Subjective Subjective: Patient was seen and examined at bedside. College President number [id number] was used for Mosotho translation. The patient denies any pain to her right foot and states did the swelling in the leg has gone down. The patient also denies any fevers, nausea vomiting, chest pain, shortness of breath, abdominal pain or any other complaints. It was explained to the patient that her cruise ship was called and that they would not be leaving until Thursday the . The patient understands and is willing to remain in the hospital to receive IV antibiotic treatment. the patient wishes to contact her son, but is unable to because of some technical difficulties. The resident offers to have the number and assist her in reaching her son. The patient states that it's not urgent and that she will provide the number later. Objective - Vital Signs/Intake and Output Vital Signs (last 24 hours): Temp Pulse Resp BP Pulse Ox 98.6 F 76 20 142/78 97 06/03/17 16:00 06/03/17 16:00 06/03/17 16:00 06/03/17 16:00 06/03/17 16:00 Intake and Output: 06/03/17 06/04/17 18:59 06:59 Intake Total 540 Output Total 500 Balance 40 - Medications Medications: Current Medications Acetaminophen (Tylenol 325mg Tab) 650 mg PO Q6H PRN PRN Reason: Fever >100.4 F Enoxaparin Sodium (Lovenox) 40 mg SC DAILY [facility] PRN Reason: Protocol Last Admin: 06/03/17 10:58 Dose: Not Given Hydrochlorothiazide (Microzide) 12.5 mg PO DAILY [facility] Last Admin: 06/03/17 10:07 Dose: 12.5 mg Meropenem 1g/NS 100mL IVPB (Meropenem 1g/Ns 100ml Ivpb) 1 gm in 100 mls @ 100 mls/hr IVPB Q8 [facility] PRN Reason: Protocol Stop: 06/08/17 12:51 Last Admin: 06/03/17 18:25 Dose: 100 mls/hr Insulin Human Regular (Humulin R Low) 0 units SC ACHS [facility] PRN Reason: Protocol Last Admin: 06/03/17 18:23 Dose: 1 units Linezolid (Zyvox) 600 mg PO BID [facility] PRN Reason: Protocol Stop: 06/08/17 12:51 Last Admin: 06/03/17 18:24 Dose: 600 mg Losartan Potassium (Cozaar) 100 mg PO DAILY [facility] Last Admin: 06/03/17 10:06 Dose: 100 mg Metformin HCl (Glucophage) 850 mg PO BID [facility] Last Admin: 06/03/17 18:24 Dose: 850 mg Mupirocin (Bactroban Ointment) 0 gm TOP BID [facility] Last Admin: 06/02/17 18:42 Dose: Not Given Nystatin (Nystop Topical Powder) 0 gm TOP BID [facility] Last Admin: 06/03/17 10:59 Dose: 1 applic Ondansetron HCl (Zofran Inj) 4 mg IVP Q4H PRN PRN Reason: Nausea/Vomiting Oxychlorosene Sodium (Clorpactin Wcs-90) 2 gm TOP DAILY [facility] Last Admin: 06/02/17 10:00 Dose: 2 gm Pantoprazole Sodium (Protonix Ec Tab) 40 mg PO 0600 [facility] Last Admin: 06/03/17 05:34 Dose: 40 mg - Labs Labs: 06/03/17 06:00 06/03/17 06:00 PT 11.4 Seconds (9.9-11.8) 05/30/17 01:00 INR 1.06 (0.93-1.08) 05/30/17 01:00 APTT 28.4 Seconds (23.7-30.8) 05/30/17 01:00 - Additional Findings Additional findings: - Constitutional Appears: Well, Non-toxic, No Acute Distress - Head Exam Head Exam: ATRAUMATIC, NORMAL INSPECTION - Eye Exam Eye Exam: EOMI, Normal appearance, PERRL - ENT Exam ENT Exam: Mucous Membranes Moist, Normal Exam - Neck Exam Neck Exam: Normal Inspection - Respiratory Exam Respiratory Exam: Clear to Ausculation Bilateral, NORMAL BREATHING PATTERN. absent: Rales, Rhonchi, Wheezes - Cardiovascular Exam Cardiovascular Exam: RRR. absent: Murmur - GI/Abdominal Exam GI & Abdominal Exam: Soft, Normal Bowel Sounds. absent: Distended, Tenderness - Extremities Exam Extremities Exam: Pedal Edema Additional comments: RLE swollen (1+); much improved from yesterday R foot is wrapped in fresh gauze - Back Exam Back Exam: NORMAL INSPECTION - Neurological Exam Neurological Exam: Alert, Awake, Oriented x3 Assessment and Plan - Assessment and Plan (Free Text) Assessment: 71 yo Mosotho speaking F with PMH of DM, HTN, medication noncompliance presents to ER, sent by cruise ship physician for hyperglycemia, leukocytosis, lactic acidosis, HTN, and vomiting. Found to have septic likely 2/2 UTI 2/2 klebsiella. Later discovered to have R hallux enterococcus faecalis infectious w / underlying osteomyelitis Plan: 1. R hallux osteomyelitis - MRI suspicious for osteomyelitis vs bone marrow reaction - OR tomorrow 06/04 730AM for right hallux I&D - Podiatry consulted and are managing - on Zyvox (5d) and Merrem (5d) - ID consulted, recs appreciated 2. Sepsis likely 2/2 UTI and cellulitis - on Zyvox PO (5d) and IV Meropenem (5d) - Ucx growing klebsiella - Wound cx growing enterococcus faecalis - pt is afebrile w/ no WBC elevation - BCx no growth after 4 days - CXR showed no acute findings - Bactroban ointment - oxychlorosene 3. LE swelling, improving - LE doppler showed no DVT b/l - LE arterial MELITON and PVR are normal - likely lymphedema 4. Buttox redness - nystatin powder apply 5. Hx DM2 - Metformin 850 BID (home dose) started - Levemir d/c - ISS LOW - accucheck ACHS - Zofran for nausea - Carb consistent diet 6. HTN - Hypertensive urgency/emergency prior to presentation, resolved - Restart home Losartan and HCTZ - Continue to monitor CCD, NPO past midnight Lovenox/PTX Patient was seen, evaluated and discussed with attending, Dr. Manav Ayala PGY1 <Mackenzie Em - Last Filed: 06/04/17 13:42> Objective - Vital Signs/Intake and Output Vital Signs (last 24 hours): Temp Pulse Resp BP Pulse Ox 98.2 F 72 14 164/80 H 99 06/04/17 08:45 06/04/17 08:45 06/04/17 08:45 06/04/17 08:45 06/04/17 08:45 Intake and Output: 06/04/17 06/04/17 06:59 18:59 Intake Total 420 0 Output Total 400 200 Balance 20 -200 - Medications Medications: Current Medications Acetaminophen (Tylenol 325mg Tab) 650 mg PO Q6H PRN PRN Reason: Fever >100.4 F Enoxaparin Sodium (Lovenox) 40 mg SC DAILY [facility] PRN Reason: Protocol Last Admin: 06/04/17 09:55 Dose: 40 mg Hydrochlorothiazide (Microzide) 12.5 mg PO DAILY [facility] Last Admin: 06/04/17 09:55 Dose: 12.5 mg Meropenem 1g/NS 100mL IVPB (Meropenem 1g/Ns 100ml Ivpb) 1 gm in 100 mls @ 100 mls/hr IVPB Q8 [facility] PRN Reason: Protocol Stop: 06/08/17 12:51 Last Admin: 06/04/17 06:07 Dose: 100 mls/hr Insulin Human Regular (Humulin R Low) 0 units SC ACHS [facility] PRN Reason: Protocol Last Admin: 06/04/17 12:33 Dose: 2 units Linezolid (Zyvox) 600 mg PO BID [facility] PRN Reason: Protocol Stop: 06/08/17 12:51 Last Admin: 06/04/17 09:56 Dose: 600 mg Losartan Potassium (Cozaar) 100 mg PO DAILY [facility] Last Admin: 06/04/17 09:51 Dose: 100 mg Metformin HCl (Glucophage) 850 mg PO BID [facility] Last Admin: 06/04/17 09:54 Dose: 850 mg Mupirocin (Bactroban Ointment) 0 gm TOP BID [facility] Last Admin: 06/04/17 09:38 Dose: Not Given Nystatin (Nystop Topical Powder) 0 gm TOP BID [facility] Last Admin: 06/04/17 09:55 Dose: Not Given Ondansetron HCl (Zofran Inj) 4 mg IVP Q4H PRN PRN Reason: Nausea/Vomiting Oxychlorosene Sodium (Clorpactin Wcs-90) 2 gm TOP DAILY [facility] Last Admin: 06/04/17 09:39 Dose: Not Given Pantoprazole Sodium (Protonix Ec Tab) 40 mg PO 0600 [facility] Last Admin: 06/03/17 05:34 Dose: 40 mg - Labs Labs: 06/04/17 06:10 06/04/17 06:10 PT 11.4 Seconds (9.9-11.8) 05/30/17 01:00 INR 1.06 (0.93-1.08) 05/30/17 01:00 APTT 28.4 Seconds (23.7-30.8) 05/30/17 01:00 Attending/Attestation - Attestation I have personally seen and examined this patient.: Yes I have fully participated in the care of the patient.: Yes I have reviewed all pertinent clinical information, including history, physical exam and plan: Yes Notes (Text): 06/04/17 13:40 Attending note; Patient seen and examined with resident. Patient is a 71 year old [place]otho female who was brought from cruise ship with history of HTN, obesity,DM-2 , not taking meds is admitted with nausea, vomiting. Admitted for hyperosmolar non ketotic state. currently blood sugar is under control. Started on metformin. Adjust dosage as needed. She was also found to have sepsis secondary to UTI and right big toe osteomyelitis. continue IV meropenem and Zyvox. urine culture showed Klebsiella. Wound culture showed Enterococcus faecalis. Case discussed with ID in detail. right big toe osteomyelitis; plan for debridement by cloth feeder Dr. Granados. Case discussed with oil field caser for discharge planning. 06/04/17 13:41
[2017-06-04] MEDS: Pantoprazole 40 mg EC Tab PO SCH (06:00)
[2017-06-04] MEDS: Meropenem 1g/NS 100mL IVPB 1 GM/100 ML PIGGYBACK IVPB SCH ×3 (06:07→21:12)
[2017-06-04 06:40] LABS: BASO # 0.02 K/mm3 (0.0-2.0); BASO % 0.3 % (0.0-3.0); EOS # 0.4 (0.0-0.7); EOS % 5.3 % (1.5-5.0); GRAN # 3.89 (1.4-6.5); GRAN % 59.4 % (50.0-68.0); HEMATOCRIT 35.8 % (36.0-48.0); LYMPH # 1.9 (1.2-3.4); LYMPH % 28.4 % (22.0-35.0); MEAN CELL VOLUME 85.4 fl (80.0-105.0); MEAN CORPUSCULAR HEMOGLOBIN 28.9 pg (25.0-35.0); MEAN CORPUSCULAR HGB CONC 33.8 g/dl (31.0-37.0); MEAN PLATELET VOLUME 10.3 fl (7.0-11.0); MONO # 0.4 (0.1-0.6); MONO % 6.6 % (1.0-6.0); RED CELL DISTRIBUTION WIDTH 13.4 % (11.5-14.5); WHITE BLOOD COUNT 6.6 10^3/ul (4.5-11.0)
[2017-06-04 07:03] LABS: BLOOD UREA NITROGEN 15 mg/dL (7-21); CALCIUM 8.5 mg/dL (8.4-10.5); CARBON DIOXIDE 28 mmol/L (21-33); CHLORIDE 99 mmol/L (98-107); GFR AFRICAN-AMERICAN > 60; GLUCOSE,RANDOM 230 mg/dL (70-110); SODIUM 136 mmol/L (132-148)
[2017-06-04] MEDS ORDERED: Lidocaine 2% Inj (20ml) ONE (07:12)
[2017-06-04] MEDS ORDERED: Gentamicin 80 mg/2mL Inj. ONE (07:28)
[2017-06-04] MEDS ORDERED: Propofol 10 mg/ml Inj (20 ML) ONE (07:41)
[2017-06-04] MEDS ORDERED: Midazolam 2 MG/2 ML VIAL ONE (07:42)
[2017-06-04] MEDS ORDERED: Lactated Ringer's 1,000 ML IV SCH (07:45)
--- NOTE | 2017-06-04 08:27 | CP.PCM.PN ---
Subjective - Date & Time of Evaluation Date of Evaluation: 06/04/17 Time of Evaluation: 07:00 - Subjective Subjective: Podiatry Progress Note - Dr. Granados 71 year old Samoan-speaking female patient seen in [facility] for right great toe incision and drainage. History obtained using Samoan power tong operator (power tong operator # [id number]). Patient seen resting comfortably, AAOx3 and NAD. Patient denies any pain to her foot today. Patient aware she has exhausted conservative treatment and now opts for surgical intervention. NPO status confirmed. Patient denies N/V/F/D /C/SOB/calf pain. No other pedal complaints at this time. Objective - Vital Signs/Intake and Output Vital Signs (last 24 hours): Temp Pulse Resp BP Pulse Ox 98.2 F 82 18 144/68 97 06/04/17 07:05 06/04/17 07:05 06/04/17 07:05 06/04/17 07:05 06/04/17 07:05 Intake and Output: 06/04/17 06/04/17 06:59 18:59 Intake Total 420 0 Output Total 400 200 Balance 20 -200 - Medications Medications: Current Medications Acetaminophen (Tylenol 325mg Tab) 650 mg PO Q6H PRN PRN Reason: Fever >100.4 F Enoxaparin Sodium (Lovenox) 40 mg SC DAILY [facility] PRN Reason: Protocol Last Admin: 06/03/17 10:58 Dose: Not Given Hydrochlorothiazide (Microzide) 12.5 mg PO DAILY [facility] Last Admin: 06/03/17 10:07 Dose: 12.5 mg Meropenem 1g/NS 100mL IVPB (Meropenem 1g/Ns 100ml Ivpb) 1 gm in 100 mls @ 100 mls/hr IVPB Q8 [facility] PRN Reason: Protocol Stop: 06/08/17 12:51 Last Admin: 06/04/17 06:07 Dose: 100 mls/hr Lactated Ringer's (Lactated Ringer's) 1,000 mls @ 75 mls/hr IV .[id number] [facility] Stop: 06/04/17 09:46 Insulin Human Regular (Humulin R Low) 0 units SC ACHS [facility] PRN Reason: Protocol Last Admin: 06/03/17 22:30 Dose: Not Given Linezolid (Zyvox) 600 mg PO BID [facility] PRN Reason: Protocol Stop: 06/08/17 12:51 Last Admin: 06/03/17 18:24 Dose: 600 mg Losartan Potassium (Cozaar) 100 mg PO DAILY [facility] Last Admin: 06/03/17 10:06 Dose: 100 mg Metformin HCl (Glucophage) 850 mg PO BID [facility] Last Admin: 06/03/17 18:24 Dose: 850 mg Mupirocin (Bactroban Ointment) 0 gm TOP BID [facility] Last Admin: 06/02/17 18:42 Dose: Not Given Nystatin (Nystop Topical Powder) 0 gm TOP BID [facility] Last Admin: 06/03/17 10:59 Dose: 1 applic Ondansetron HCl (Zofran Inj) 4 mg IVP Q4H PRN PRN Reason: Nausea/Vomiting Oxychlorosene Sodium (Clorpactin Wcs-90) 2 gm TOP DAILY [facility] Last Admin: 06/02/17 10:00 Dose: 2 gm Pantoprazole Sodium (Protonix Ec Tab) 40 mg PO 0600 [facility] Last Admin: 06/03/17 05:34 Dose: 40 mg - Labs Labs: 06/04/17 06:10 06/04/17 06:10 PT 11.4 Seconds (9.9-11.8) 05/30/17 01:00 INR 1.06 (0.93-1.08) 05/30/17 01:00 APTT 28.4 Seconds (23.7-30.8) 05/30/17 01:00 - Constitutional Appears: Well, Non-toxic, No Acute Distress - Extremities Exam Additional comments: Dressing to right foot is intact however there is strikethrough noted to the plantar aspect of right hallux - Neurological Exam Neurological Exam: Alert, Awake, Oriented x3 - Psychiatric Exam Psychiatric exam: Normal Affect, Normal Mood Assessment and Plan - Assessment and Plan (Free Text) Assessment: 71 year old female patient PMH DM, HTN with right hallux abscess, cellulitis, and 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 Granados while in house
[2017-06-04] MEDS: Oxychlorosene Topical 2 gm Packet TOP SCH (09:39)
[2017-06-04] MEDS: Insulin Reg-LOW-Coverage SC SCH ×4 (09:54→22:00)
[2017-06-04] MEDS: Enoxaparin 40 mg Syringe SC SCH (09:55)
[2017-06-04] MEDS: Nystatin 100,000 Units/gm Topical Pow(15 gm) TOP SCH ×2 (09:55→17:33)
--- NOTE | 2017-06-04 10:38 | CP.PCM.PN ---
<Jaison Best - Last Filed: 06/04/17 10:36> Subjective - Date & Time of Evaluation Date of Evaluation: 06/04/17 Time of Evaluation: 07:00 - Subjective Subjective: Podiatry Progress Note - Dr. Granados 71 year old Azeri-speaking female patient seen in [facility] for right great toe incision and drainage. History obtained using Azeri park interpreter (park interpreter # [id number]). Patient seen resting comfortably, AAOx3 and NAD. Patient denies any pain to her foot today. Patient aware she has exhausted conservative treatment and now opts for surgical intervention. NPO status confirmed. Patient denies N/V/F/D /C/SOB/calf pain. No other pedal complaints at this time. Objective - Vital Signs/Intake and Output Vital Signs (last 24 hours): Temp Pulse Resp BP Pulse Ox 98.2 F 72 14 164/80 H 99 06/04/17 08:45 06/04/17 08:45 06/04/17 08:45 06/04/17 08:45 06/04/17 08:45 Intake and Output: 06/04/17 06/04/17 06:59 18:59 Intake Total 420 0 Output Total 400 200 Balance 20 -200 - Medications Medications: Current Medications Acetaminophen (Tylenol 325mg Tab) 650 mg PO Q6H PRN PRN Reason: Fever >100.4 F Enoxaparin Sodium (Lovenox) 40 mg SC DAILY [facility] PRN Reason: Protocol Last Admin: 06/04/17 09:55 Dose: 40 mg Hydrochlorothiazide (Microzide) 12.5 mg PO DAILY [facility] Last Admin: 06/04/17 09:55 Dose: 12.5 mg Meropenem 1g/NS 100mL IVPB (Meropenem 1g/Ns 100ml Ivpb) 1 gm in 100 mls @ 100 mls/hr IVPB Q8 [facility] PRN Reason: Protocol Stop: 06/08/17 12:51 Last Admin: 06/04/17 06:07 Dose: 100 mls/hr Insulin Human Regular (Humulin R Low) 0 units SC ACHS [facility] PRN Reason: Protocol Last Admin: 06/04/17 09:54 Dose: Not Given Linezolid (Zyvox) 600 mg PO BID [facility] PRN Reason: Protocol Stop: 06/08/17 12:51 Last Admin: 06/04/17 09:56 Dose: 600 mg Losartan Potassium (Cozaar) 100 mg PO DAILY [facility] Last Admin: 06/04/17 09:51 Dose: 100 mg Metformin HCl (Glucophage) 850 mg PO BID [facility] Last Admin: 06/04/17 09:54 Dose: 850 mg Mupirocin (Bactroban Ointment) 0 gm TOP BID [facility] Last Admin: 06/04/17 09:38 Dose: Not Given Nystatin (Nystop Topical Powder) 0 gm TOP BID [facility] Last Admin: 06/04/17 09:55 Dose: Not Given Ondansetron HCl (Zofran Inj) 4 mg IVP Q4H PRN PRN Reason: Nausea/Vomiting Oxychlorosene Sodium (Clorpactin Wcs-90) 2 gm TOP DAILY [facility] Last Admin: 06/04/17 09:39 Dose: Not Given Pantoprazole Sodium (Protonix Ec Tab) 40 mg PO 0600 [facility] Last Admin: 06/03/17 05:34 Dose: 40 mg - Labs Labs: 06/04/17 06:10 06/04/17 06:10 PT 11.4 Seconds (9.9-11.8) 05/30/17 01:00 INR 1.06 (0.93-1.08) 05/30/17 01:00 APTT 28.4 Seconds (23.7-30.8) 05/30/17 01:00 - Constitutional Appears: Well, Non-toxic, No Acute Distress - Extremities Exam Additional comments: Dressing to right foot is intact however there is strikethrough noted to the plantar aspect of right hallux - Neurological Exam Neurological Exam: Alert, Awake, Oriented x3 - Psychiatric Exam Psychiatric exam: Normal Affect, Normal Mood Assessment and Plan - Assessment and Plan (Free Text) Assessment: 71 year old female patient PMH DM, HTN with right hallux abscess, cellulitis, and 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 Granados while in house <Mague Granados - Last Filed: 06/14/17 14:37> Objective - Vital Signs/Intake and Output Vital Signs (last 24 hours): Temp Pulse Resp BP Pulse Ox 97.6 F 85 20 161/93 H 98 06/09/17 08:47 06/09/17 08:47 06/09/17 08:47 06/09/17 08:47 06/09/17 08:47 - Labs Labs: 06/09/17 07:37 06/09/17 07:37 PT 11.4 Seconds (9.9-11.8) 05/30/17 01:00 INR 1.06 (0.93-1.08) 05/30/17 01:00 APTT 28.4 Seconds (23.7-30.8) 05/30/17 01:00 Attending/Attestation - Attestation I have personally seen and examined this patient.: Yes I have fully participated in the care of the patient.: Yes I have reviewed all pertinent clinical information, including history, physical exam and plan: Yes
--- NOTE | 2017-06-04 10:46 | PCM.SURG1 ---
Surgeon's Initial Post Op Note - Surgeon's Notes Surgeon: Dr. Roberta DPM Marketing Account Executive: Dr. Jaison Best DPM PGY1 Type of Anesthesia: IV Sedation, Local Anesthesia Administered By: Dr. Shore Pre-Operative Diagnosis: Right hallux abscess + cellulitis Operative Findings: See operative report. Materials: 09/17" iodoform packing, 4- 0 nylon. Injectables: 15cc 2% lidocaine plain pre-op Post-Operative Diagnosis: Same as above Operation Performed: Right hallux incision and drainage Specimen/Specimens Removed: None Estimated Blood Loss: EBL {In ML}: 15 Blood Products Given: N/A Drains Used: No Drains Post-Op Condition: Good Date of Surgery/Procedure: 06/04/17 Time of Surgery/Procedure: 07:40
--- NOTE | 2017-06-04 11:56 | CP.PCM.PN ---
<CORY AYALA - Last Filed: 06/04/17 13:00> Subjective - Date & Time of Evaluation Date of Evaluation: 06/04/17 Time of Evaluation: 09:20 - Subjective Subjective: patient was seen and examined at bedside. Stock Analyst #[id number] was used for [place]. the patient denied any complaints of pain, fevers, chills, n/v/d overnight or during her procedure. it was explained to her, that she would continue to receive tx for her foot per the podiatry team, and receive IV antibiotics per ID team while she remains in the hospital. pt was told that she would remain till Thursday, which is what was relayed by the SW and nursing team, and that if she needed to contact her son or any other persons during that time, that she would let the nurses know and the team would assist her. Objective - Vital Signs/Intake and Output Vital Signs (last 24 hours): Temp Pulse Resp BP Pulse Ox 98.2 F 72 14 164/80 H 99 06/04/17 08:45 06/04/17 08:45 06/04/17 08:45 06/04/17 08:45 06/04/17 08:45 Intake and Output: 06/04/17 06/04/17 06:59 18:59 Intake Total 420 0 Output Total 400 200 Balance 20 -200 - Medications Medications: Current Medications Acetaminophen (Tylenol 325mg Tab) 650 mg PO Q6H PRN PRN Reason: Fever >100.4 F Enoxaparin Sodium (Lovenox) 40 mg SC DAILY [facility] PRN Reason: Protocol Last Admin: 06/04/17 09:55 Dose: 40 mg Hydrochlorothiazide (Microzide) 12.5 mg PO DAILY [facility] Last Admin: 06/04/17 09:55 Dose: 12.5 mg Meropenem 1g/NS 100mL IVPB (Meropenem 1g/Ns 100ml Ivpb) 1 gm in 100 mls @ 100 mls/hr IVPB Q8 [facility] PRN Reason: Protocol Stop: 06/08/17 12:51 Last Admin: 06/04/17 06:07 Dose: 100 mls/hr Insulin Human Regular (Humulin R Low) 0 units SC ACHS [facility] PRN Reason: Protocol Last Admin: 06/04/17 09:54 Dose: Not Given Linezolid (Zyvox) 600 mg PO BID [facility] PRN Reason: Protocol Stop: 06/08/17 12:51 Last Admin: 06/04/17 09:56 Dose: 600 mg Losartan Potassium (Cozaar) 100 mg PO DAILY [facility] Last Admin: 06/04/17 09:51 Dose: 100 mg Metformin HCl (Glucophage) 850 mg PO BID [facility] Last Admin: 06/04/17 09:54 Dose: 850 mg Mupirocin (Bactroban Ointment) 0 gm TOP BID [facility] Last Admin: 06/04/17 09:38 Dose: Not Given Nystatin (Nystop Topical Powder) 0 gm TOP BID [facility] Last Admin: 06/04/17 09:55 Dose: Not Given Ondansetron HCl (Zofran Inj) 4 mg IVP Q4H PRN PRN Reason: Nausea/Vomiting Oxychlorosene Sodium (Clorpactin Wcs-90) 2 gm TOP DAILY [facility] Last Admin: 06/04/17 09:39 Dose: Not Given Pantoprazole Sodium (Protonix Ec Tab) 40 mg PO 0600 [facility] Last Admin: 06/03/17 05:34 Dose: 40 mg - Labs Labs: 06/04/17 06:10 06/04/17 06:10 PT 11.4 Seconds (9.9-11.8) 05/30/17 01:00 INR 1.06 (0.93-1.08) 05/30/17 01:00 APTT 28.4 Seconds (23.7-30.8) 05/30/17 01:00 - Additional Findings Additional findings: - Constitutional Appears: Well, Non-toxic, No Acute Distress - Head Exam Head Exam: ATRAUMATIC, NORMAL INSPECTION - Eye Exam Eye Exam: EOMI, Normal appearance, PERRL - ENT Exam ENT Exam: Mucous Membranes Moist, Normal Exam - Neck Exam Neck Exam: Normal Inspection - Respiratory Exam Respiratory Exam: Clear to Ausculation Bilateral, NORMAL BREATHING PATTERN. absent: Rales, Rhonchi, Wheezes - Cardiovascular Exam Cardiovascular Exam: RRR. absent: Murmur - GI/Abdominal Exam GI & Abdominal Exam: Soft, Normal Bowel Sounds. absent: Distended, Tenderness - Extremities Exam Extremities Exam: Pedal Edema Additional comments: RLE swelling improved dramatically R foot is wrapped in fresh gauze boot post-op - Back Exam Back Exam: NORMAL INSPECTION - Neurological Exam Neurological Exam: Alert, Awake, Oriented x3 Assessment and Plan - Assessment and Plan (Free Text) Assessment: 71 yo [place] speaking F with PMH of DM, HTN, medication noncompliance presents to ER, sent by cruise [place] physician for hyperglycemia, leukocytosis, lactic acidosis, HTN, and vomiting. Found to be septic likely 2/2 R hallux osteomyelitis vs UTI due to Klebsiella infection. Later discovered to have R hallux enterococcus faecalis infectious w/ underlying osteomyelitis Plan: 1. R hallux abscess and cellulitis w/ underlying osteomyelitis - OR this morning for I&D - MRI suspicious for osteomyelitis vs bone marrow reaction - Podiatry consulted and are managing - wound culture: E. faecalis - on Zyvox (6d) and Meropenem (6d) - ID consulted, recs appreciated 2. Sepsis likely 2/2 UTI vs cellulitis - on Zyvox PO (6d) and IV Meropenem (6d) - urine culture: growing klebsiella - wound cx growing enterococcus faecalis - pt is afebrile w/ no WBC elevation - BCx no growth after 5 days - CXR showed no acute findings - Bactroban ointment - oxychlorosene 3. LE swelling, improving w/ abx treatment - LE doppler showed no DVT b/l - LE arterial MELITON and PVR are normal - likely lymphedema 4. Buttox redness, improving - nystatin powder apply 5. Hx DM2 - cont Metformin 850 BID (home dose) - ISS LOW - accucheck ACHS - Zofran for nausea - Carb consistent diet 6. HTN - Hypertensive urgency/emergency prior to presentation, resolved - cont home Losartan and HCTZ - Continue to monitor CCD Lovenox/PTX Dispo: per , pt will be flown back to [place] on Thursday. Refer to note. Patient was seen, evaluated and discussed with attending, Dr. Manav Ayala PGY1 <Mackenzie Em - Last Filed: 06/04/17 13:52> Objective - Vital Signs/Intake and Output Vital Signs (last 24 hours): Temp Pulse Resp BP Pulse Ox 98.2 F 72 14 164/80 H 99 06/04/17 08:45 06/04/17 08:45 06/04/17 08:45 06/04/17 08:45 06/04/17 08:45 Intake and Output: 06/04/17 06/04/17 06:59 18:59 Intake Total 420 0 Output Total 400 200 Balance 20 -200 - Medications Medications: Current Medications Acetaminophen (Tylenol 325mg Tab) 650 mg PO Q6H PRN PRN Reason: Fever >100.4 F Enoxaparin Sodium (Lovenox) 40 mg SC DAILY [facility] PRN Reason: Protocol Last Admin: 06/04/17 09:55 Dose: 40 mg Hydrochlorothiazide (Microzide) 12.5 mg PO DAILY [facility] Last Admin: 06/04/17 09:55 Dose: 12.5 mg Meropenem 1g/NS 100mL IVPB (Meropenem 1g/Ns 100ml Ivpb) 1 gm in 100 mls @ 100 mls/hr IVPB Q8 [facility] PRN Reason: Protocol Stop: 06/08/17 12:51 Last Admin: 06/04/17 06:07 Dose: 100 mls/hr Insulin Human Regular (Humulin R Low) 0 units SC ACHS [facility] PRN Reason: Protocol Last Admin: 06/04/17 12:33 Dose: 2 units Linezolid (Zyvox) 600 mg PO BID [facility] PRN Reason: Protocol Stop: 06/08/17 12:51 Last Admin: 06/04/17 09:56 Dose: 600 mg Losartan Potassium (Cozaar) 100 mg PO DAILY [facility] Last Admin: 06/04/17 09:51 Dose: 100 mg Metformin HCl (Glucophage) 850 mg PO BID [facility] Last Admin: 06/04/17 09:54 Dose: 850 mg Mupirocin (Bactroban Ointment) 0 gm TOP BID [facility] Last Admin: 06/04/17 09:38 Dose: Not Given Nystatin (Nystop Topical Powder) 0 gm TOP BID [facility] Last Admin: 06/04/17 09:55 Dose: Not Given Ondansetron HCl (Zofran Inj) 4 mg IVP Q4H PRN PRN Reason: Nausea/Vomiting Oxychlorosene Sodium (Clorpactin Wcs-90) 2 gm TOP DAILY [facility] Last Admin: 06/04/17 09:39 Dose: Not Given Pantoprazole Sodium (Protonix Ec Tab) 40 mg PO 0600 [facility] Last Admin: 06/03/17 05:34 Dose: 40 mg - Labs Labs: 06/04/17 06:10 06/04/17 06:10 PT 11.4 Seconds (9.9-11.8) 05/30/17 01:00 INR 1.06 (0.93-1.08) 05/30/17 01:00 APTT 28.4 Seconds (23.7-30.8) 05/30/17 01:00 Attending/Attestation - Attestation I have personally seen and examined this patient.: Yes I have fully participated in the care of the patient.: Yes I have reviewed all pertinent clinical information, including history, physical exam and plan: Yes Notes (Text): 06/04/17 13:51 Attending note; Patient seen and examined with resident. s/p Incision and drainage of the right big toe. Dressing clean. No bleeding noted. Patient is a 71 year old [place] female who [place] with history of HTN, obesity,DM-2 , not taking meds is admitted with nausea, vomiting. Admitted for hyperosmolar non ketotic state. currently blood sugar is under control. Started on metformin. continue IV meropenem and Zyvox. urine culture showed Klebsiella. Wound culture showed Enterococcus faecalis. Case discussed with ID in detail. Case discussed with lining caser for discharge planning. discharge on Thursday. The diagnosis and treatment discussed with patient in detail via diet tech phone.
[2017-06-05] MEDS: Meropenem 1g/NS 100mL IVPB 1 GM/100 ML PIGGYBACK IVPB SCH ×3 (05:18→22:24)
[2017-06-05 07:22] LABS: BASO # 0.01 K/mm3 (0.0-2.0); BASO % 0.1 % (0.0-3.0); EOS # 0.3 (0.0-0.7); EOS % 4.6 % (1.5-5.0); GRAN # 3.74 (1.4-6.5); GRAN % 53.2 % (50.0-68.0); HEMATOCRIT 37.4 % (36.0-48.0); LYMPH # 2.5 (1.2-3.4); LYMPH % 35.4 % (22.0-35.0); MEAN CELL VOLUME 85.6 fl (80.0-105.0); MEAN CORPUSCULAR HEMOGLOBIN 29.3 pg (25.0-35.0); MEAN CORPUSCULAR HGB CONC 34.2 g/dl (31.0-37.0); MEAN PLATELET VOLUME 9.8 fl (7.0-11.0); MONO # 0.5 (0.1-0.6); MONO % 6.7 % (1.0-6.0); RED CELL DISTRIBUTION WIDTH 13.2 % (11.5-14.5)
[2017-06-05 07:54] LABS: BLOOD UREA NITROGEN 15 mg/dL (7-21); CALCIUM 8.6 mg/dL (8.4-10.5); CARBON DIOXIDE 30 mmol/L (21-33); CHLORIDE 97 mmol/L (98-107); GFR AFRICAN-AMERICAN > 60; GLUCOSE,RANDOM 221 mg/dL (70-110); POTASSIUM 4.9 mmol/L (3.6-5.0); SODIUM 136 mmol/L (132-148)
[2017-06-05] MEDS: Oxychlorosene Topical 2 gm Packet TOP SCH (10:22)
[2017-06-05] MEDS: Insulin Reg-LOW-Coverage SC SCH ×4 (10:22→22:23)
[2017-06-05] MEDS: Enoxaparin 40 mg Syringe SC SCH (10:23)
[2017-06-05] MEDS: Nystatin 100,000 Units/gm Topical Pow(15 gm) TOP SCH ×2 (10:23→17:34)
[2017-06-05] MEDS: Pantoprazole 40 mg EC Tab PO SCH (10:24)
--- NOTE | 2017-06-05 13:53 | CP.PCM.PN ---
<CORY AYALA - Last Filed: 06/05/17 13:48> Subjective - Date & Time of Evaluation Date of Evaluation: 06/05/17 Time of Evaluation: 11:00 - Subjective Subjective: patient was seen and examined at bedside. Sales Center Manager # [id number] was used for [place]ian translation. The patient denied any complaints of fevers, leg pain, pedal edema , cp, sob, cough, n/v/d. she has a good appetite and has no urinary/bowel issues. It was explained to the pt that she had a bad infection with her food and that it is requiring antibiotics and wound care by podiatry team. It was explained to her also that she will be cleared to leave and will have a flight planned to take her to [place] by her ship company. The pt had no further questions. Objective - Vital Signs/Intake and Output Vital Signs (last 24 hours): Temp Pulse Resp BP Pulse Ox 97.8 F 75 20 145/95 H 97 06/05/17 06:00 06/05/17 06:00 06/05/17 06:00 06/05/17 06:00 06/05/17 06:00 Intake and Output: 06/05/17 06/05/17 06:59 18:59 Intake Total 0 Output Total 651 Balance -651 - Medications Medications: Current Medications Acetaminophen (Tylenol 325mg Tab) 650 mg PO Q6H PRN PRN Reason: Fever >100.4 F Last Admin: 06/04/17 21:33 Dose: 650 mg Enoxaparin Sodium (Lovenox) 40 mg SC DAILY [facility] PRN Reason: Protocol Last Admin: 06/05/17 10:23 Dose: 40 mg Hydrochlorothiazide (Microzide) 12.5 mg PO DAILY [facility] Last Admin: 06/05/17 10:23 Dose: 12.5 mg Meropenem 1g/NS 100mL IVPB (Meropenem 1g/Ns 100ml Ivpb) 1 gm in 100 mls @ 100 mls/hr IVPB Q8 [facility] PRN Reason: Protocol Stop: 06/08/17 12:51 Last Admin: 06/05/17 05:18 Dose: 100 mls/hr Insulin Human Regular (Humulin R Low) 0 units SC ACHS [facility] PRN Reason: Protocol Last Admin: 06/05/17 11:53 Dose: 3 units Linezolid (Zyvox) 600 mg PO BID [facility] PRN Reason: Protocol Stop: 06/08/17 12:51 Last Admin: 06/05/17 10:24 Dose: 600 mg Losartan Potassium (Cozaar) 100 mg PO DAILY [facility] Last Admin: 06/05/17 10:22 Dose: 100 mg Metformin HCl (Glucophage) 1,000 mg PO BID [facility] Mupirocin (Bactroban Ointment) 0 gm TOP BID [facility] Last Admin: 06/05/17 10:22 Dose: Not Given Nystatin (Nystop Topical Powder) 0 gm TOP BID [facility] Last Admin: 06/05/17 10:23 Dose: 1 applic Ondansetron HCl (Zofran Inj) 4 mg IVP Q4H PRN PRN Reason: Nausea/Vomiting Oxychlorosene Sodium (Clorpactin Wcs-90) 2 gm TOP DAILY [facility] Last Admin: 06/05/17 10:22 Dose: Not Given Pantoprazole Sodium (Protonix Ec Tab) 40 mg PO 0600 [facility] Last Admin: 06/05/17 10:24 Dose: 40 mg - Labs Labs: 06/05/17 07:15 06/05/17 07:15 PT 11.4 Seconds (9.9-11.8) 05/30/17 01:00 INR 1.06 (0.93-1.08) 05/30/17 01:00 APTT 28.4 Seconds (23.7-30.8) 05/30/17 01:00 - Additional Findings Additional findings: - Constitutional Appears: Well, Non-toxic, No Acute Distress - Head Exam Head Exam: ATRAUMATIC, NORMAL INSPECTION - Eye Exam Eye Exam: EOMI, Normal appearance, PERRL - ENT Exam ENT Exam: Mucous Membranes Moist, Normal Exam - Neck Exam Neck Exam: Normal Inspection - Respiratory Exam Respiratory Exam: Clear to Ausculation Bilateral, NORMAL BREATHING PATTERN. absent: Rales, Rhonchi, Wheezes - Cardiovascular Exam Cardiovascular Exam: RRR. absent: Murmur - GI/Abdominal Exam GI & Abdominal Exam: Soft, Normal Bowel Sounds. absent: Distended, Tenderness - Extremities Exam Extremities Exam: Pedal Edema Additional comments: RLE swelling resolved R foot is wrapped in gauze boot - Back Exam Back Exam: NORMAL INSPECTION - Neurological Exam Neurological Exam: Alert, Awake, Oriented x3 Assessment and Plan - Assessment and Plan (Free Text) Assessment: 71 yo [place]ian speaking F with PMH of DM, HTN, medication noncompliance presented to ER, sent by cruise [place] physician for hyperglycemia, leukocytosis, lactic acidosis, HTN, and vomiting. Found to be septic likely 2/2 R hallux osteomyelitis vs UTI due to Klebsiella infection. Later discovered to have R hallux enterococcus faecalis infection w/ underlying osteomyelitis Plan: 1. R hallux abscess and cellulitis w/ underlying osteomyelitis - s/p I&D day 1 - Podiatry consulted and are managing - wound culture: E. faecalis - on Zyvox (7d) and Meropenem (7d) - ID consulted, recs appreciated - PT eval pending 2. Sepsis likely 2/2 UTI vs cellulitis - on Zyvox PO (7d) and IV Meropenem (7d) - urine culture: growing klebsiella - wound cx growing enterococcus faecalis - pt remains afebrile w/ no WBC elevation - BCx no growth after 5 days - CXR showed no acute findings - Bactroban ointment - oxychlorosene 3. Hx DM2 - Metformin increased to 1000mg BID - ISS LOW - accucheck ACHS - Zofran for nausea - Carb consistent diet - diabetic education referral 4. LE swelling, improving w/ abx treatment - LE doppler showed no DVT b/l - LE arterial MELITON and PVR are normal - likely lymphedema 5. Buttox redness, improving - nystatin powder apply 6. HTN - Hypertensive urgency/emergency prior to presentation, resolved - cont home Losartan and HCTZ - Continue to monitor CCD Lovenox/PTX Dispo: per , pt will be flown back to [place] on Thursday. Refer to note. Patient was seen, evaluated and discussed with attending, Dr. Manav Ayala PGY1 <Mackenzie Em - Last Filed: 06/05/17 16:22> Objective - Vital Signs/Intake and Output Vital Signs (last 24 hours): Temp Pulse Resp BP Pulse Ox 97.8 F 75 20 145/95 H 97 06/05/17 06:00 06/05/17 06:00 06/05/17 06:00 06/05/17 06:00 06/05/17 06:00 Intake and Output: 06/05/17 06/05/17 06:59 18:59 Intake Total 0 Output Total 651 Balance -651 - Medications Medications: Current Medications Acetaminophen (Tylenol 325mg Tab) 650 mg PO Q6H PRN PRN Reason: Fever >100.4 F Last Admin: 06/04/17 21:33 Dose: 650 mg Enoxaparin Sodium (Lovenox) 40 mg SC DAILY [facility] PRN Reason: Protocol Last Admin: 06/05/17 10:23 Dose: 40 mg Hydrochlorothiazide (Microzide) 12.5 mg PO DAILY [facility] Last Admin: 06/05/17 10:23 Dose: 12.5 mg Meropenem 1g/NS 100mL IVPB (Meropenem 1g/Ns 100ml Ivpb) 1 gm in 100 mls @ 100 mls/hr IVPB Q8 [facility] PRN Reason: Protocol Stop: 06/08/17 12:51 Last Admin: 06/05/17 14:13 Dose: 100 mls/hr Insulin Human Regular (Humulin R Low) 0 units SC ACHS [facility] PRN Reason: Protocol Last Admin: 06/05/17 11:53 Dose: 3 units Linezolid (Zyvox) 600 mg PO BID [facility] PRN Reason: Protocol Stop: 06/08/17 12:51 Last Admin: 06/05/17 10:24 Dose: 600 mg Losartan Potassium (Cozaar) 100 mg PO DAILY [facility] Last Admin: 06/05/17 10:22 Dose: 100 mg Metformin HCl (Glucophage) 1,000 mg PO BID [facility] Mupirocin (Bactroban Ointment) 0 gm TOP BID [facility] Last Admin: 06/05/17 10:22 Dose: Not Given Nystatin (Nystop Topical Powder) 0 gm TOP BID [facility] Last Admin: 06/05/17 10:23 Dose: 1 applic Ondansetron HCl (Zofran Inj) 4 mg IVP Q4H PRN PRN Reason: Nausea/Vomiting Oxychlorosene Sodium (Clorpactin Wcs-90) 2 gm TOP DAILY [facility] Last Admin: 06/05/17 10:22 Dose: Not Given Pantoprazole Sodium (Protonix Ec Tab) 40 mg PO 0600 [facility] Last Admin: 06/05/17 10:24 Dose: 40 mg - Labs Labs: 06/05/17 07:15 06/05/17 07:15 PT 11.4 Seconds (9.9-11.8) 05/30/17 01:00 INR 1.06 (0.93-1.08) 05/30/17 01:00 APTT 28.4 Seconds (23.7-30.8) 05/30/17 01:00 Attending/Attestation - Attestation I have personally seen and examined this patient.: Yes I have fully participated in the care of the patient.: Yes I have reviewed all pertinent clinical information, including history, physical exam and plan: Yes Notes (Text): 06/05/17 16:20 Attending note; Patient seen and examined with resident. Patient is a 71 year old [place] female who [place] with history of HTN, obesity,DM-2 , not taking meds is admitted with nausea, vomiting. Admitted for hyperosmolar non ketotic state. Started on metformin. dosage increased. continue IV meropenem and Zyvox. urine culture showed Klebsiella. Wound culture showed Enterococcus faecalis. right big toe osteomyelitis/abscess;s/p Incision and drainage of the right big toe. Dressing clean. No bleeding noted. discharge on Thursday. The diagnosis and treatment discussed with patient in detail via elastic tape inserter phone.
--- NOTE | 2017-06-05 14:04 | CP.PCM.PN ---
Subjective - Date & Time of Evaluation Date of Evaluation: 06/05/17 Time of Evaluation: 11:45 - Subjective Subjective: Comfortable in bed, not in distress, afebrile. Objective - Vital Signs/Intake and Output Vital Signs (last 24 hours): Temp Pulse Resp BP Pulse Ox 97.8 F 75 20 145/95 H 97 06/05/17 06:00 06/05/17 06:00 06/05/17 06:00 06/05/17 06:00 06/05/17 06:00 Intake and Output: 06/05/17 06/05/17 06:59 18:59 Intake Total 0 Output Total 651 Balance -651 - Medications Medications: Current Medications Acetaminophen (Tylenol 325mg Tab) 650 mg PO Q6H PRN PRN Reason: Fever >100.4 F Last Admin: 06/04/17 21:33 Dose: 650 mg Enoxaparin Sodium (Lovenox) 40 mg SC DAILY [facility] PRN Reason: Protocol Last Admin: 06/04/17 09:55 Dose: 40 mg Hydrochlorothiazide (Microzide) 12.5 mg PO DAILY [facility] Last Admin: 06/04/17 09:55 Dose: 12.5 mg Meropenem 1g/NS 100mL IVPB (Meropenem 1g/Ns 100ml Ivpb) 1 gm in 100 mls @ 100 mls/hr IVPB Q8 [facility] PRN Reason: Protocol Stop: 06/08/17 12:51 Last Admin: 06/05/17 05:18 Dose: 100 mls/hr Insulin Human Regular (Humulin R Low) 0 units SC ACHS [facility] PRN Reason: Protocol Last Admin: 06/04/17 22:00 Dose: Not Given Linezolid (Zyvox) 600 mg PO BID [facility] PRN Reason: Protocol Stop: 06/08/17 12:51 Last Admin: 06/04/17 17:34 Dose: 600 mg Losartan Potassium (Cozaar) 100 mg PO DAILY [facility] Last Admin: 06/04/17 09:51 Dose: 100 mg Metformin HCl (Glucophage) 850 mg PO BID [facility] Last Admin: 06/04/17 17:32 Dose: 850 mg Mupirocin (Bactroban Ointment) 0 gm TOP BID [facility] Last Admin: 06/04/17 17:27 Dose: Not Given Nystatin (Nystop Topical Powder) 0 gm TOP BID [facility] Last Admin: 06/04/17 17:33 Dose: Not Given Ondansetron HCl (Zofran Inj) 4 mg IVP Q4H PRN PRN Reason: Nausea/Vomiting Oxychlorosene Sodium (Clorpactin Wcs-90) 2 gm TOP DAILY [facility] Last Admin: 06/04/17 09:39 Dose: Not Given Pantoprazole Sodium (Protonix Ec Tab) 40 mg PO 0600 [facility] Last Admin: 06/04/17 06:00 Dose: Not Given - Labs Labs: 06/05/17 07:15 06/05/17 07:15 PT 11.4 Seconds (9.9-11.8) 05/30/17 01:00 INR 1.06 (0.93-1.08) 05/30/17 01:00 APTT 28.4 Seconds (23.7-30.8) 05/30/17 01:00 - Constitutional Appears: Non-toxic, No Acute Distress - Head Exam Head Exam: NORMAL INSPECTION - ENT Exam ENT Exam: Mucous Membranes Moist - Neck Exam Neck Exam: absent: Meningismus - Respiratory Exam Respiratory Exam: Decreased Breath Sounds - Cardiovascular Exam Cardiovascular Exam: +S1, +S2 - GI/Abdominal Exam GI & Abdominal Exam: Soft. absent: Tenderness - Extremities Exam Additional comments: right foot with dressings in place Assessment and Plan - Assessment and Plan (Free Text) Plan: Assessment Sepsis due to Right foot hallux skin and soft tissue infection with probable osteomyelitis of the distal and proximal phalanges; so far growing E. faecalis s /P I and D POD #1 gram negative bacteriuria without symptoms (i.e. asymptomatic) DM HTN obesity with BMI 30 Plan continue Zyvox pending OR wound cx (initial wound cx showing E. faecalis); MELITON' s are normal; follow up OR pathology as well will continue to monitor clinically
--- NOTE | 2017-06-05 14:41 | PN ---
DATE: SUBJECTIVE: A 71-year-old female seen status post day 1, incision and drainage of a severe diabetic infection with abscess formation on the right hallux. The patient has been afebrile and is reporting no pain. PHYSICAL EXAMINATION VITAL SIGNS: The patient's vital signs reveal temperature of 97.8, pulse rate of 75, blood pressure of 145/95, and respiratory rate of 20. EXTREMITIES: Probable pedal pulses noted bilaterally. Incision site on the right hallux present with sutures intact and incision site well coapted. There is noted to be decreased edema and erythema of the right hallux. There is no purulent emanating from the wound. There is no signs of ascending cellulitis. LABORATORY DATA: Findings reveals white count of 7, hemoglobin of 12.8, hematocrit of 37.4, and platelet count of 306. Microbiology report reveals Enterococcus faecalis growth in the right foot ulcer. Overall, pathology reports pending. Overall, microbiology reports pending. PLAN: Bandage was removed. Area was cleansed with normal sterile saline, new packing was applied, and a dry sterile dressing was placed over the surgical area. ASSESSMENT: Status post day number 1, incision and drainage of the right hallux secondary to diabetic infection with deep abscess formation. The patient will be seen and followed daily. Neal Rob DPM
[2017-06-06] MEDS: Meropenem 1g/NS 100mL IVPB 1 GM/100 ML PIGGYBACK IVPB SCH ×3 (05:36→22:23)
[2017-06-06] MEDS: Pantoprazole 40 mg EC Tab PO SCH (05:37)
--- NOTE | 2017-06-06 07:43 | OP ---
PROCEDURE DATE: 06/04/2017 DICTATING FOR: Mague Granados DPM PREOPERATIVE DIAGNOSIS: Right hallux abscess and cellulitis. POSTOPERATIVE DIAGNOSIS: Right hallux abscess and cellulitis. NAME OF PROCEDURE: Right hallux incision and drainage. SURGEON: Dr. Granados. CLIENT SERVICE PROFESSIONAL: Jaison Best DPM, PGY-1 TYPE OF ANESTHESIA: IV sedation with local 15 mL of 2% lidocaine plain. ANESTHESIA ADMINISTERED BY: Dr. Shore. INDICATIONS: The patient is a 71-year-old Chilean speaking female with the above diagnosis. The patient has exhausted all conservative treatment at this time and now requires surgical intervention. The patient signed the consent after careful explanation of risks, benefits, complications, and alternatives for the procedure with the assistance of a [place] branch banker (branch banker #[id number]). No guarantees were given nor implied. NPO status was confirmed prior to taking the patient to the OR. PREPARATION: The patient was brought into the operating room and placed on the operating room table in a supine position. Time-out was performed for identification of the correct patient and procedure. After induction of IV sedation, the patient received a total of 15 mL of 2% lidocaine plain in a Malhotra block type fashion to the right foot. The right foot was then prepped and draped in normal sterile manner and the procedure began. No tourniquet was used during the procedure. DESCRIPTION OF PROCEDURE: Attention was then directed to the right hallux where an ulceration with hyperkeratotic rim measuring approximately 0.5 x 0.3 cm was noted. Using a #15 blade, a hyperkeratotic rim was excisionally debrided down to healthy skin. Next, a linear incision was made starting distally and extending proximally to the ulceration. Next, using a curved hemostat, it was noted that the ulcer tunneled dorsally towards the proximal nailfold. Approximately 5 mL of purulence was expressed from the ulceration site. Then, using the InProntoonix ultrasonic cylindrical tip in setting 5, all fibrotic and nonviable tissue was excisionally debrided until healthy bleeding granular tissue appeared. Any remaining nonviable tissue was removed using iris scissors and forceps, and was passed off the field. The site was then flushed with copious amounts of sterile saline. The plantar hallux ulceration was packed with quarter inch Iodoform packing strip and the right foot was dressed in sterile gauze and Kerlix. POSTOPERATIVE CONDITION: The patient tolerated the anesthesia and the procedure well and was escorted to the recovery room with vital signs stable and neurovascular status intact to the right foot. The patient is to remain nonweightbearing to the right foot, but may transition to partial weightbearing to the right heel in a surgical shoe. The patient will continue to be followed while in-house. Jaison Best DPM Mague Granados DPM [facility]
[2017-06-06 07:51] LABS: BASO # 0.02 K/mm3 (0.0-2.0); BASO % 0.3 % (0.0-3.0); EOS # 0.3 (0.0-0.7); EOS % 5.4 % (1.5-5.0); GRAN # 3.07 (1.4-6.5); GRAN % 52.2 % (50.0-68.0); HEMATOCRIT 38.3 % (36.0-48.0); LYMPH % 34.6 % (22.0-35.0); MEAN CELL VOLUME 86.3 fl (80.0-105.0); MEAN CORPUSCULAR HEMOGLOBIN 29.1 pg (25.0-35.0); MEAN CORPUSCULAR HGB CONC 33.7 g/dl (31.0-37.0); MEAN PLATELET VOLUME 10.2 fl (7.0-11.0); MONO # 0.4 (0.1-0.6); MONO % 7.5 % (1.0-6.0); RED CELL DISTRIBUTION WIDTH 13.2 % (11.5-14.5); WHITE BLOOD COUNT 5.9 10^3/ul (4.5-11.0)
[2017-06-06 08:02] LABS: BLOOD UREA NITROGEN 19 mg/dL (7-21); CARBON DIOXIDE 28 mmol/L (21-33); CHLORIDE 96 mmol/L (95-110); GFR AFRICAN-AMERICAN > 60; GLUCOSE,RANDOM 229 mg/dL (70-110); POTASSIUM 4.5 mmol/L (3.6-5.0); SODIUM 134 mmol/L (132-148)
[2017-06-06] MEDS: Insulin Reg-LOW-Coverage SC SCH ×4 (08:29→22:23)
--- NOTE | 2017-06-06 09:53 | CP.PCM.PN ---
<Natalie Mcdonald - Last Filed: 06/06/17 09:49> Subjective - Date & Time of Evaluation Date of Evaluation: 06/06/17 Time of Evaluation: 08:30 - Subjective Subjective: Podiatry Progress Note- Dr. Rob 71 yo female pt seen at the bedside this morning with Dr. Rob present 2 days s/p I&D severe diabetic infection with abscess right hallux. Pt is seen resting comfortably in bed at time of visit. Appears to be in NAD at this time and reports absence of pain/discomfort to the foot at this time. No acute events overnight. Objective - Vital Signs/Intake and Output Vital Signs (last 24 hours): Temp Pulse Resp BP Pulse Ox 97.7 F 81 20 157/86 H 96 06/06/17 08:28 06/06/17 08:28 06/06/17 08:28 06/06/17 08:28 06/06/17 08:28 Intake and Output: 06/06/17 06/06/17 06:59 18:59 Intake Total 500 240 Output Total 400 Balance 100 240 - Medications Medications: Current Medications Acetaminophen (Tylenol 325mg Tab) 650 mg PO Q6H PRN PRN Reason: Fever >100.4 F Last Admin: 06/04/17 21:33 Dose: 650 mg Enoxaparin Sodium (Lovenox) 40 mg SC DAILY [facility] PRN Reason: Protocol Last Admin: 06/05/17 10:23 Dose: 40 mg Hydrochlorothiazide (Microzide) 12.5 mg PO DAILY [facility] Last Admin: 06/05/17 10:23 Dose: 12.5 mg Meropenem 1g/NS 100mL IVPB (Meropenem 1g/Ns 100ml Ivpb) 1 gm in 100 mls @ 100 mls/hr IVPB Q8 [facility] PRN Reason: Protocol Stop: 06/08/17 12:51 Last Admin: 06/06/17 05:36 Dose: 100 mls/hr Insulin Human Regular (Humulin R Low) 0 units SC ACHS [facility] PRN Reason: Protocol Last Admin: 06/06/17 08:29 Dose: 2 units Linezolid (Zyvox) 600 mg PO BID [facility] PRN Reason: Protocol Stop: 06/08/17 12:51 Last Admin: 06/05/17 17:35 Dose: 600 mg Losartan Potassium (Cozaar) 100 mg PO DAILY [facility] Last Admin: 06/05/17 10:22 Dose: 100 mg Metformin HCl (Glucophage) 1,000 mg PO BID [facility] Last Admin: 06/05/17 17:34 Dose: 1,000 mg Mupirocin (Bactroban Ointment) 0 gm TOP BID [facility] Last Admin: 06/05/17 10:22 Dose: Not Given Nystatin (Nystop Topical Powder) 0 gm TOP BID [facility] Last Admin: 06/05/17 17:34 Dose: 1 applic Ondansetron HCl (Zofran Inj) 4 mg IVP Q4H PRN PRN Reason: Nausea/Vomiting Oxychlorosene Sodium (Clorpactin Wcs-90) 2 gm TOP DAILY [facility] Last Admin: 06/05/17 10:22 Dose: Not Given Pantoprazole Sodium (Protonix Ec Tab) 40 mg PO 0600 [facility] Last Admin: 06/06/17 05:37 Dose: 40 mg - Labs Labs: 06/06/17 06:30 06/06/17 06:30 PT 11.4 Seconds (9.9-11.8) 05/30/17 01:00 INR 1.06 (0.93-1.08) 05/30/17 01:00 APTT 28.4 Seconds (23.7-30.8) 05/30/17 01:00 - Constitutional Appears: Non-toxic, No Acute Distress - Extremities Exam Extremities Exam: absent: Calf Tenderness Additional comments: RLE exam: VASC- pedal pulses are palpable, cap refill < 3 seconds to all digits, skin temp runs from warm to warm, edema is noted to hallux circumferentially NEURO- pedal sensation is grossly diminished DERM- incision site of right hallux appears well-coapted with no dehisence, no maceration, minimal serous drainage, erythema is decreased, no ascending cellulitis ORTHO- no tenderness to hallux - Neurological Exam Neurological Exam: Alert, Awake, Oriented x3 - Psychiatric Exam Psychiatric exam: Normal Affect, Normal Mood Assessment and Plan - Assessment and Plan (Free Text) Assessment: 71 yo female patient POD #2 R hallux 2/2 severe infection Plan: Pt S&E at bedside with attending Dr. Rob Chart, vitals, labs reviewed: afebrile, WBC 5.9 Surgical site flushed with saline and clorpactin solution, packed lightly with 1 /4 inch iodoform packing, dressed with 4x4 and kerlix c/w IV abx per ID Stable at this time <Neal Rob - Last Filed: 06/06/17 10:07> Objective - Vital Signs/Intake and Output Vital Signs (last 24 hours): Temp Pulse Resp BP Pulse Ox 97.7 F 81 20 157/86 H 96 06/06/17 08:28 06/06/17 08:28 06/06/17 08:28 06/06/17 08:28 06/06/17 08:28 Intake and Output: 06/06/17 06/06/17 06:59 18:59 Intake Total 500 240 Output Total 400 Balance 100 240 - Medications Medications: Current Medications Acetaminophen (Tylenol 325mg Tab) 650 mg PO Q6H PRN PRN Reason: Fever >100.4 F Last Admin: 06/04/17 21:33 Dose: 650 mg Enoxaparin Sodium (Lovenox) 40 mg SC DAILY [facility] PRN Reason: Protocol Last Admin: 06/05/17 10:23 Dose: 40 mg Hydrochlorothiazide (Microzide) 12.5 mg PO DAILY [facility] Last Admin: 06/05/17 10:23 Dose: 12.5 mg Meropenem 1g/NS 100mL IVPB (Meropenem 1g/Ns 100ml Ivpb) 1 gm in 100 mls @ 100 mls/hr IVPB Q8 [facility] PRN Reason: Protocol Stop: 06/08/17 12:51 Last Admin: 06/06/17 05:36 Dose: 100 mls/hr Insulin Human Regular (Humulin R Low) 0 units SC ACHS [facility] PRN Reason: Protocol Last Admin: 06/06/17 08:29 Dose: 2 units Linezolid (Zyvox) 600 mg PO BID [facility] PRN Reason: Protocol Stop: 06/08/17 12:51 Last Admin: 06/05/17 17:35 Dose: 600 mg Losartan Potassium (Cozaar) 100 mg PO DAILY [facility] Last Admin: 06/05/17 10:22 Dose: 100 mg Metformin HCl (Glucophage) 1,000 mg PO BID [facility] Last Admin: 06/05/17 17:34 Dose: 1,000 mg Mupirocin (Bactroban Ointment) 0 gm TOP BID [facility] Last Admin: 06/05/17 10:22 Dose: Not Given Nystatin (Nystop Topical Powder) 0 gm TOP BID [facility] Last Admin: 06/05/17 17:34 Dose: 1 applic Ondansetron HCl (Zofran Inj) 4 mg IVP Q4H PRN PRN Reason: Nausea/Vomiting Oxychlorosene Sodium (Clorpactin Wcs-90) 2 gm TOP DAILY [facility] Last Admin: 06/05/17 10:22 Dose: Not Given Pantoprazole Sodium (Protonix Ec Tab) 40 mg PO 0600 [facility] Last Admin: 06/06/17 05:37 Dose: 40 mg - Labs Labs: 06/06/17 06:30 06/06/17 06:30 PT 11.4 Seconds (9.9-11.8) 05/30/17 01:00 INR 1.06 (0.93-1.08) 05/30/17 01:00 APTT 28.4 Seconds (23.7-30.8) 05/30/17 01:00 Attending/Attestation - Attestation I have personally seen and examined this patient.: Yes I have fully participated in the care of the patient.: Yes I have reviewed all pertinent clinical information, including history, physical exam and plan: Yes
--- NOTE | 2017-06-06 10:03 | PN ---
DATE: 06/06/2017 SUBJECTIVE: The patient is in bed, in no acute distress, nontoxic. PHYSICAL EXAMINATION: VITAL SIGNS: Temperature is 97, blood pressure is 150/80, respiratory rate of 20, heart rate of 88. HEENT: Unremarkable. NECK: Supple. LUNGS: Decreased breath sounds. HEART: Normal S1 and S2. ABDOMEN: Soft, nontender. LABORATORY DATA: Reveals a white count of 5.9, hemoglobin of 12, platelets of 298. Coagulation is noted. BUN of 19, creatinine of 0.8. Right foot culture is Enterococcus and urine culture is Klebsiella. Blood cultures are negative. Review of orders reveals the patient to be on meropenem and Zyvox. The patient was taken to the OR yesterday. Operative note is reviewed, had a right hallux incision and drainage. ASSESSMENT AND PLAN: A 71-year-old female with sepsis due to right foot hallux skin and soft tissue infection, probable osteomyelitis of the distal and proximal phalanges, so far growing Enterococcus faecalis, status post procedure and a Gram-negative bacteria, Klebsiella asymptomatic with diabetes and hypertension, obesity, on Zyvox. We will check on the OR cultures yesterday and patient also on meropenem. Duane Chiang MD
[2017-06-06] MEDS: Enoxaparin 40 mg Syringe SC SCH (10:59)
[2017-06-06] MEDS: Nystatin 100,000 Units/gm Topical Pow(15 gm) TOP SCH ×2 (11:00→17:23)
[2017-06-06] MEDS: Oxychlorosene Topical 2 gm Packet TOP SCH (13:15)
--- NOTE | 2017-06-06 19:40 | CP.PCM.PN ---
<Liborio Bledsoe - Last Filed: 06/06/17 19:42> Subjective - Date & Time of Evaluation Date of Evaluation: 06/06/17 Time of Evaluation: 09:39 - Subjective Subjective: Patient seen and examined at bedside. Patient has no complaints. Nurse reports no events overnight. Objective - Vital Signs/Intake and Output Vital Signs (last 24 hours): Temp Pulse Resp BP Pulse Ox 98.3 F 84 20 141/82 96 06/06/17 16:15 06/06/17 16:15 06/06/17 16:15 06/06/17 16:15 06/06/17 16:15 Intake and Output: 06/06/17 06/07/17 18:59 06:59 Intake Total 960 Output Total 400 Balance 560 - Medications Medications: Current Medications Acetaminophen (Tylenol 325mg Tab) 650 mg PO Q6H PRN PRN Reason: Fever >100.4 F Last Admin: 06/04/17 21:33 Dose: 650 mg Enoxaparin Sodium (Lovenox) 40 mg SC DAILY [facility] PRN Reason: Protocol Last Admin: 06/06/17 10:59 Dose: 40 mg Hydrochlorothiazide (Microzide) 12.5 mg PO DAILY [facility] Last Admin: 06/06/17 10:59 Dose: 12.5 mg Meropenem 1g/NS 100mL IVPB (Meropenem 1g/Ns 100ml Ivpb) 1 gm in 100 mls @ 100 mls/hr IVPB Q8 [facility] PRN Reason: Protocol Stop: 06/08/17 12:51 Last Admin: 06/06/17 17:22 Dose: 100 mls/hr Insulin Human Regular (Humulin R Low) 0 units SC ACHS [facility] PRN Reason: Protocol Last Admin: 06/06/17 17:38 Dose: 1 units Linezolid (Zyvox) 600 mg PO BID [facility] PRN Reason: Protocol Stop: 06/08/17 12:51 Last Admin: 06/06/17 17:23 Dose: 600 mg Losartan Potassium (Cozaar) 100 mg PO DAILY [facility] Last Admin: 06/06/17 10:59 Dose: 100 mg Metformin HCl (Glucophage) 1,000 mg PO BID [facility] Last Admin: 06/06/17 17:22 Dose: 1,000 mg Mupirocin (Bactroban Ointment) 0 gm TOP BID [facility] Last Admin: 06/06/17 13:15 Dose: Not Given Nystatin (Nystop Topical Powder) 0 gm TOP BID [facility] Last Admin: 06/06/17 17:23 Dose: 1 applic Ondansetron HCl (Zofran Inj) 4 mg IVP Q4H PRN PRN Reason: Nausea/Vomiting Oxychlorosene Sodium (Clorpactin Wcs-90) 2 gm TOP DAILY [facility] Last Admin: 06/06/17 13:15 Dose: Not Given Pantoprazole Sodium (Protonix Ec Tab) 40 mg PO 0600 [facility] Last Admin: 06/06/17 05:37 Dose: 40 mg - Labs Labs: 06/06/17 06:30 06/06/17 06:30 PT 11.4 Seconds (9.9-11.8) 05/30/17 01:00 INR 1.06 (0.93-1.08) 05/30/17 01:00 APTT 28.4 Seconds (23.7-30.8) 05/30/17 01:00 - Head Exam Additional comments: - Constitutional Appears: Well, Non-toxic, No Acute Distress - Head Exam Head Exam: ATRAUMATIC, NORMAL INSPECTION - Eye Exam Eye Exam: EOMI, Normal appearance, PERRL - ENT Exam ENT Exam: Mucous Membranes Moist, Normal Exam - Neck Exam Neck Exam: Normal Inspection - Respiratory Exam Respiratory Exam: Clear to Ausculation Bilateral, NORMAL BREATHING PATTERN. absent: Rales, Rhonchi, Wheezes - Cardiovascular Exam Cardiovascular Exam: RRR. absent: Murmur - GI/Abdominal Exam GI & Abdominal Exam: Soft, Normal Bowel Sounds. absent: Distended, Tenderness - Extremities Exam Extremities Exam: Pedal Edema Additional comments: RLE swelling resolved R foot is wrapped in gauze boot - Back Exam Back Exam: NORMAL INSPECTION - Neurological Exam Neurological Exam: Alert, Awake, Oriented x3 Assessment and Plan - Assessment and Plan (Free Text) Assessment: 71 yo [place] speaking F with PMH of DM, HTN, medication noncompliance presented to ER, sent by [employer] [place] physician for hyperglycemia, leukocytosis, lactic acidosis, HTN, and vomiting. Found to be septic likely 2/2 R hallux osteomyelitis vs UTI due to Klebsiella infection. Later discovered to have R hallux enterococcus faecalis infection w/ underlying osteomyelitis Plan: Plan: 1. R hallux abscess and cellulitis w/ underlying osteomyelitis - s/p I&D day 2 - Podiatry consulted and are managing - wound culture: E. faecalis - on Zyvox (8d) and Meropenem (8d) - ID consulted, recs appreciated - PT eval pending 2. Sepsis likely 2/2 UTI vs cellulitis - on Zyvox PO (7d) and IV Meropenem (7d) - urine culture: growing klebsiella - wound cx growing enterococcus faecalis - pt remains afebrile w/ no WBC elevation - BCx no growth after 5 days - CXR showed no acute findings - Bactroban ointment - oxychlorosene 3. Hx DM2 - Metformin increased to 1000mg BID - ISS LOW - accucheck ACHS - Zofran for nausea - Carb consistent diet - diabetic education referral 4. LE swelling, improving w/ abx treatment - LE doppler showed no DVT b/l - LE arterial MELITON and PVR are normal - likely lymphedema 5. Buttox redness, improving - nystatin powder apply 6. HTN - Hypertensive urgency/emergency prior to presentation, resolved - cont home Losartan and HCTZ - Continue to monitor CCD Lovenox/PTX Dispo: per , pt will be flown back to [place] on Thursday morning. Refer to note. Patient was seen, evaluated and discussed with attending, Dr. Em <Mackenzie Em - Last Filed: 06/07/17 10:55> Objective - Vital Signs/Intake and Output Vital Signs (last 24 hours): Temp Pulse Resp BP Pulse Ox 97.7 F 76 18 141/88 96 06/07/17 08:15 06/07/17 08:15 06/07/17 08:15 06/07/17 08:15 06/07/17 08:15 Intake and Output: 06/07/17 06/07/17 06:59 18:59 Intake Total 540 Output Total 240 Balance 300 - Medications Medications: Current Medications Acetaminophen (Tylenol 325mg Tab) 650 mg PO Q6H PRN PRN Reason: Fever >100.4 F Last Admin: 06/04/17 21:33 Dose: 650 mg Enoxaparin Sodium (Lovenox) 40 mg SC DAILY [facility] PRN Reason: Protocol Last Admin: 06/07/17 09:33 Dose: 40 mg Hydrochlorothiazide (Microzide) 12.5 mg PO DAILY [facility] Last Admin: 06/07/17 09:32 Dose: 12.5 mg Meropenem 1g/NS 100mL IVPB (Meropenem 1g/Ns 100ml Ivpb) 1 gm in 100 mls @ 100 mls/hr IVPB Q8 [facility] PRN Reason: Protocol Stop: 06/08/17 12:51 Last Admin: 06/07/17 06:25 Dose: 100 mls/hr Insulin Human Regular (Humulin R Low) 0 units SC ACHS [facility] PRN Reason: Protocol Last Admin: 06/06/17 22:23 Dose: Not Given Linezolid (Zyvox) 600 mg PO BID [facility] PRN Reason: Protocol Stop: 06/08/17 12:51 Last Admin: 06/07/17 09:32 Dose: 600 mg Losartan Potassium (Cozaar) 100 mg PO DAILY [facility] Last Admin: 06/07/17 09:32 Dose: 100 mg Metformin HCl (Glucophage) 1,000 mg PO BID [facility] Last Admin: 06/07/17 09:32 Dose: 1,000 mg Mupirocin (Bactroban Ointment) 0 gm TOP BID [facility] Last Admin: 06/06/17 13:15 Dose: Not Given Nystatin (Nystop Topical Powder) 0 gm TOP BID [facility] Last Admin: 06/06/17 17:23 Dose: 1 applic Ondansetron HCl (Zofran Inj) 4 mg IVP Q4H PRN PRN Reason: Nausea/Vomiting Oxychlorosene Sodium (Clorpactin Wcs-90) 2 gm TOP DAILY [facility] Last Admin: 06/06/17 13:15 Dose: Not Given Pantoprazole Sodium (Protonix Ec Tab) 40 mg PO 0600 [facility] Last Admin: 06/07/17 06:24 Dose: 40 mg - Labs Labs: 06/07/17 07:10 06/07/17 07:10 PT 11.4 Seconds (9.9-11.8) 05/30/17 01:00 INR 1.06 (0.93-1.08) 05/30/17 01:00 APTT 28.4 Seconds (23.7-30.8) 05/30/17 01:00 Attending/Attestation - Attestation I have personally seen and examined this patient.: Yes I have fully participated in the care of the patient.: Yes I have reviewed all pertinent clinical information, including history, physical exam and plan: Yes Notes (Text): 06/07/17 10:48 Attending note; Patient seen and examined with resident. Patient is a 71 year old [place] female who [place] with history of HTN, obesity,DM-2 , not taking meds is admitted with nausea, vomiting.Admitted for hyperosmolar non ketotic state. Started on metformin. dosage increased. monitor sugar closely. continue IV meropenem and Zyvox. urine culture showed Klebsiella. Wound culture showed Enterococcus faecalis. right big toe osteomyelitis/abscess;s/p Incision and drainage of the right big toe. Dressing clean. No bleeding noted. discharge planned for Thursday. the patient will fly back to [facility] on Thursday. 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
[2017-06-07] MEDS: Pantoprazole 40 mg EC Tab PO SCH (06:24)
[2017-06-07] MEDS: Meropenem 1g/NS 100mL IVPB 1 GM/100 ML PIGGYBACK IVPB SCH ×3 (06:25→21:25)
[2017-06-07 07:20] LABS: BASO # 0.02 K/mm3 (0.0-2.0); BASO % 0.3 % (0.0-3.0); EOS # 0.4 (0.0-0.7); EOS % 5.4 % (1.5-5.0); GRAN # 4.42 (1.4-6.5); GRAN % 61.5 % (50.0-68.0); HEMATOCRIT 38.8 % (36.0-48.0); LYMPH # 1.9 (1.2-3.4); LYMPH % 26.8 % (22.0-35.0); MEAN CELL VOLUME 85.1 fl (80.0-105.0); MEAN CORPUSCULAR HEMOGLOBIN 29.2 pg (25.0-35.0); MEAN CORPUSCULAR HGB CONC 34.3 g/dl (31.0-37.0); MEAN PLATELET VOLUME 9.5 fl (7.0-11.0); MONO # 0.4 (0.1-0.6); WHITE BLOOD COUNT 7.2 10^3/ul (4.5-11.0)
[2017-06-07 07:35] LABS: BLOOD UREA NITROGEN 22 mg/dL (7-21); CALCIUM 8.9 mg/dL (8.4-10.5); CARBON DIOXIDE 28 mmol/L (21-33); CHLORIDE 98 mmol/L (98-107); GFR AFRICAN-AMERICAN > 60; GLUCOSE,RANDOM 225 mg/dL (70-110); POTASSIUM 4.5 mmol/L (3.6-5.0); SODIUM 136 mmol/L (132-148)
[2017-06-07] MEDS: Insulin Reg-LOW-Coverage SC SCH ×3 (08:28→21:24)
[2017-06-07] MEDS: Enoxaparin 40 mg Syringe SC SCH (09:33)
--- NOTE | 2017-06-07 10:07 | CP.PCM.PN ---
<Natalie Mcdonald - Last Filed: 06/07/17 10:05> Subjective - Date & Time of Evaluation Date of Evaluation: 06/07/17 Time of Evaluation: 09:35 - Subjective Subjective: Podiatry Progress Note- Dr. Rob 71 yo Pashto speaking female pt seen at the bedside this morning POD#3 I&D right hallux. Pt is seen resting comfortably in bed at time of visit. Appears to be in NAD. Denies any pain or discomfort today. Objective - Vital Signs/Intake and Output Vital Signs (last 24 hours): Temp Pulse Resp BP Pulse Ox 97.7 F 76 18 141/88 96 06/07/17 08:15 06/07/17 08:15 06/07/17 08:15 06/07/17 08:15 06/07/17 08:15 Intake and Output: 06/07/17 06/07/17 06:59 18:59 Intake Total 540 Output Total 240 Balance 300 - Medications Medications: Current Medications Acetaminophen (Tylenol 325mg Tab) 650 mg PO Q6H PRN PRN Reason: Fever >100.4 F Last Admin: 06/04/17 21:33 Dose: 650 mg Enoxaparin Sodium (Lovenox) 40 mg SC DAILY [facility] PRN Reason: Protocol Last Admin: 06/07/17 09:33 Dose: 40 mg Hydrochlorothiazide (Microzide) 12.5 mg PO DAILY [facility] Last Admin: 06/07/17 09:32 Dose: 12.5 mg Meropenem 1g/NS 100mL IVPB (Meropenem 1g/Ns 100ml Ivpb) 1 gm in 100 mls @ 100 mls/hr IVPB Q8 [facility] PRN Reason: Protocol Stop: 06/08/17 12:51 Last Admin: 06/07/17 06:25 Dose: 100 mls/hr Insulin Human Regular (Humulin R Low) 0 units SC ACHS [facility] PRN Reason: Protocol Last Admin: 06/06/17 22:23 Dose: Not Given Linezolid (Zyvox) 600 mg PO BID [facility] PRN Reason: Protocol Stop: 06/08/17 12:51 Last Admin: 06/07/17 09:32 Dose: 600 mg Losartan Potassium (Cozaar) 100 mg PO DAILY [facility] Last Admin: 06/07/17 09:32 Dose: 100 mg Metformin HCl (Glucophage) 1,000 mg PO BID [facility] Last Admin: 06/07/17 09:32 Dose: 1,000 mg Mupirocin (Bactroban Ointment) 0 gm TOP BID [facility] Last Admin: 06/06/17 13:15 Dose: Not Given Nystatin (Nystop Topical Powder) 0 gm TOP BID [facility] Last Admin: 06/06/17 17:23 Dose: 1 applic Ondansetron HCl (Zofran Inj) 4 mg IVP Q4H PRN PRN Reason: Nausea/Vomiting Oxychlorosene Sodium (Clorpactin Wcs-90) 2 gm TOP DAILY [facility] Last Admin: 06/06/17 13:15 Dose: Not Given Pantoprazole Sodium (Protonix Ec Tab) 40 mg PO 0600 [facility] Last Admin: 06/07/17 06:24 Dose: 40 mg - Labs Labs: 06/07/17 07:10 06/07/17 07:10 PT 11.4 Seconds (9.9-11.8) 05/30/17 01:00 INR 1.06 (0.93-1.08) 05/30/17 01:00 APTT 28.4 Seconds (23.7-30.8) 05/30/17 01:00 - Constitutional Appears: Non-toxic, No Acute Distress - Extremities Exam Extremities Exam: absent: Calf Tenderness Additional comments: RLE exam: VASC- pedal pulses are palpable, cap refill < 3 seconds to all digits, skin temp runs from warm to warm, edema is noted to hallux circumferentially NEURO- pedal sensation is grossly diminished DERM- incision site of right hallux appears well-coapted with no dehisence, no maceration, minimal serous drainage, erythema is decreased, no ascending cellulitis ORTHO- no tenderness to hallux - Neurological Exam Neurological Exam: Alert, Awake, Oriented x3 - Psychiatric Exam Psychiatric exam: Normal Affect, Normal Mood Assessment and Plan - Assessment and Plan (Free Text) Assessment: 71 yo female patient POD #3 R hallux 2/2 severe infection Plan: Pt S&E at bedside Plan discussed with attending Dr. Rob Chart, vitals, labs reviewed: afebrile, WBC 7.2 Surgical site flushed with saline and clorpactin solution, packed lightly with 1 /4 inch iodoform packing, dressed with 4x4 and kerlix c/w IV abx per ID Stable at this time <Denita Robmarie - Last Filed: 06/09/17 11:03> Objective - Vital Signs/Intake and Output Vital Signs (last 24 hours): Temp Pulse Resp BP Pulse Ox 97.6 F 85 20 161/93 H 98 06/09/17 08:47 06/09/17 08:47 06/09/17 08:47 06/09/17 08:47 06/09/17 08:47 Intake and Output: 06/09/17 06/09/17 06:59 18:59 Intake Total 420 Balance 420 - Medications Medications: Current Medications Acetaminophen (Tylenol 325mg Tab) 650 mg PO Q6H PRN PRN Reason: Fever >100.4 F Last Admin: 06/04/17 21:33 Dose: 650 mg Enoxaparin Sodium (Lovenox) 40 mg SC DAILY [facility] PRN Reason: Protocol Last Admin: 06/09/17 09:35 Dose: 40 mg Glimepiride (Amaryl) 2 mg PO DAILY [facility] Last Admin: 06/09/17 09:31 Dose: 2 mg Hydrochlorothiazide (Microzide) 12.5 mg PO DAILY [facility] Last Admin: 06/09/17 09:36 Dose: 12.5 mg Meropenem 1g/NS 100mL IVPB (Meropenem 1g/Ns 100ml Ivpb) 1 gm in 100 mls @ 100 mls/hr IVPB Q8 [facility] PRN Reason: Protocol Stop: 06/15/17 22:01 Last Admin: 06/09/17 05:44 Dose: 100 mls/hr Linezolid (Zyvox 600mg/300ml D5w) 600 mg in 300 mls @ 200 mls/hr IVPB Q12 [facility] PRN Reason: Protocol Stop: 06/15/17 22:01 Last Admin: 06/09/17 09:41 Dose: Not Given Insulin Human Regular (Humulin R Low) 0 units SC ACHS [facility] PRN Reason: Protocol Last Admin: 06/09/17 09:35 Dose: 1 units Losartan Potassium (Cozaar) 100 mg PO DAILY [facility] Last Admin: 06/09/17 09:33 Dose: 100 mg Metformin HCl (Glucophage) 1,000 mg PO BID [facility] Last Admin: 06/09/17 09:33 Dose: 1,000 mg Mupirocin (Bactroban Ointment) 0 gm TOP BID [facility] Last Admin: 06/09/17 09:32 Dose: Not Given Nystatin (Nystop Topical Powder) 0 gm TOP BID [facility] Last Admin: 06/09/17 09:36 Dose: 1 applic Ondansetron HCl (Zofran Inj) 4 mg IVP Q4H PRN PRN Reason: Nausea/Vomiting Oxychlorosene Sodium (Clorpactin Wcs-90) 2 gm TOP DAILY [facility] Last Admin: 06/09/17 09:33 Dose: 2 gm Pantoprazole Sodium (Protonix Ec Tab) 40 mg PO 0600 [facility] Last Admin: 06/09/17 05:43 Dose: 40 mg - Labs Labs: 06/09/17 07:37 06/09/17 07:37 PT 11.4 Seconds (9.9-11.8) 05/30/17 01:00 INR 1.06 (0.93-1.08) 05/30/17 01:00 APTT 28.4 Seconds (23.7-30.8) 05/30/17 01:00 Attending/Attestation - Attestation I have personally seen and examined this patient.: Yes I have fully participated in the care of the patient.: Yes I have reviewed all pertinent clinical information, including history, physical exam and plan: Yes
[2017-06-07] MEDS: Nystatin 100,000 Units/gm Topical Pow(15 gm) TOP SCH ×2 (10:39→18:39)
--- NOTE | 2017-06-07 13:12 | PN ---
DATE: SUBJECTIVE: The patient is seen earlier today. No fevers, no chills. No nausea. PHYSICAL EXAMINATION: VITAL SIGNS: Temperature is 98, blood pressure is 140/80, respiratory rate of 18. HEENT: Unremarkable. NECK: Supple. LUNGS: Decreased breath sounds. HEART: Normal S1 and S2. ABDOMEN: Soft and nontender. LABORATORY DATA: Reveals a white count of 7.2, hemoglobin of 13, platelets of 334. Chemistries reveal a BUN of 22, creatinine of 0.8. Urinalysis is noted and microbiology reveals the urine has Klebsiella and foot culture is Enterococcus. Review of the orders reveals the patient to be on meropenem and Zyvox. ASSESSMENT AND PLAN: A 71-year-old female with sepsis to the right foot hallux skin and soft tissue infection, probable osteomyelitis of the distal and proximal phalanges, Enterococcus, status post procedure with negative blood cultures. The patient does have Klebsiella in the urine with asymptomatic Gram-negative Klebsiella bacteruria and diabetic, hypertension, on Zyvox and meropenem. Duane Chiang MD
--- NOTE | 2017-06-07 17:33 | CP.PCM.PN ---
<Liborio Bledsoe - Last Filed: 06/07/17 17:35> Subjective - Date & Time of Evaluation Date of Evaluation: 06/07/17 Time of Evaluation: 17:33 - Subjective Subjective: iLborio Bledsoe DO, PGY-1, Hospitalist Service Patient seen and examined at bedside. Patient denies any chest pain, dyspnea, nausea, vomiting, or diarrhea. Nurse reports no events overnight. Objective - Vital Signs/Intake and Output Vital Signs (last 24 hours): Temp Pulse Resp BP Pulse Ox 97.7 F 76 18 141/88 96 06/07/17 08:15 06/07/17 08:15 06/07/17 08:15 06/07/17 08:15 06/07/17 08:15 Intake and Output: 06/07/17 06/07/17 06:59 18:59 Intake Total 540 400 Output Total 240 200 Balance 300 200 - Medications Medications: Current Medications Acetaminophen (Tylenol 325mg Tab) 650 mg PO Q6H PRN PRN Reason: Fever >100.4 F Last Admin: 06/04/17 21:33 Dose: 650 mg Enoxaparin Sodium (Lovenox) 40 mg SC DAILY [facility] PRN Reason: Protocol Last Admin: 06/07/17 09:33 Dose: 40 mg Glimepiride (Amaryl) 2 mg PO DAILY [facility] Last Admin: 06/07/17 13:28 Dose: 2 mg Hydrochlorothiazide (Microzide) 12.5 mg PO DAILY [facility] Last Admin: 06/07/17 09:32 Dose: 12.5 mg Meropenem 1g/NS 100mL IVPB (Meropenem 1g/Ns 100ml Ivpb) 1 gm in 100 mls @ 100 mls/hr IVPB Q8 [facility] PRN Reason: Protocol Stop: 06/08/17 12:51 Last Admin: 06/07/17 14:24 Dose: 100 mls/hr Insulin Human Regular (Humulin R Low) 0 units SC ACHS [facility] PRN Reason: Protocol Last Admin: 06/07/17 13:33 Dose: 2 units Linezolid (Zyvox) 600 mg PO BID [facility] PRN Reason: Protocol Stop: 06/08/17 12:51 Last Admin: 06/07/17 09:32 Dose: 600 mg Losartan Potassium (Cozaar) 100 mg PO DAILY [facility] Last Admin: 06/07/17 09:32 Dose: 100 mg Metformin HCl (Glucophage) 1,000 mg PO BID [facility] Last Admin: 06/07/17 09:32 Dose: 1,000 mg Mupirocin (Bactroban Ointment) 0 gm TOP BID [facility] Last Admin: 06/06/17 13:15 Dose: Not Given Nystatin (Nystop Topical Powder) 0 gm TOP BID [facility] Last Admin: 06/06/17 17:23 Dose: 1 applic Ondansetron HCl (Zofran Inj) 4 mg IVP Q4H PRN PRN Reason: Nausea/Vomiting Oxychlorosene Sodium (Clorpactin Wcs-90) 2 gm TOP DAILY [facility] Last Admin: 06/06/17 13:15 Dose: Not Given Pantoprazole Sodium (Protonix Ec Tab) 40 mg PO 0600 [facility] Last Admin: 06/07/17 06:24 Dose: 40 mg - Labs Labs: 06/07/17 07:10 06/07/17 07:10 PT 11.4 Seconds (9.9-11.8) 05/30/17 01:00 INR 1.06 (0.93-1.08) 05/30/17 01:00 APTT 28.4 Seconds (23.7-30.8) 05/30/17 01:00 - Head Exam Additional comments: - Head Exam Additional comments: - Constitutional Appears: Well, Non-toxic, No Acute Distress - Head Exam Head Exam: ATRAUMATIC, NORMAL INSPECTION - Eye Exam Eye Exam: EOMI, Normal appearance, PERRL - ENT Exam ENT Exam: Mucous Membranes Moist, Normal Exam - Neck Exam Neck Exam: Normal Inspection - Respiratory Exam Respiratory Exam: Clear to Ausculation Bilateral, NORMAL BREATHING PATTERN. absent: Rales, Rhonchi, Wheezes - Cardiovascular Exam Cardiovascular Exam: RRR. absent: Murmur - GI/Abdominal Exam GI & Abdominal Exam: Soft, Normal Bowel Sounds. absent: Distended, Tenderness - Extremities Exam Extremities Exam: Pedal Edema Additional comments: RLE swelling resolved R foot is wrapped in gauze boot - Back Exam Back Exam: NORMAL INSPECTION - Neurological Exam Neurological Exam: Alert, Awake, Oriented x3 Assessment and Plan - Assessment and Plan (Free Text) Assessment: 71 yo [place] speaking F with PMH of DM, HTN, medication noncompliance presented to ER, sent by [place] physician for hyperglycemia, leukocytosis, lactic acidosis, HTN, and vomiting. Found to be septic likely 2/2 R hallux osteomyelitis vs UTI due to Klebsiella infection. Later discovered to have R hallux enterococcus faecalis infection w/ underlying osteomyelitis Plan: Plan: 1. R hallux abscess and cellulitis w/ underlying osteomyelitis - Podiatry consulted and are managing - wound culture: E. faecalis - on Zyvox and Meropenem - ID consulted, recs appreciated - PT evaluation appreciated, see note for details 2. Sepsis likely 2/2 UTI vs cellulitis - on Zyvox PO (7d) and IV Meropenem (7d) - urine culture: growing klebsiella - wound cx growing enterococcus faecalis - pt remains afebrile w/ no WBC elevation - BCx no growth after 5 days - CXR showed no acute findings - Bactroban ointment - oxychlorosene 3. Hx DM2 - Metformin increased to 1000mg BID - ISS LOW - accucheck ACHS - Zofran for nausea - Carb consistent diet - diabetic education referral 4. LE swelling, improving w/ abx treatment - LE doppler showed no DVT b/l - LE arterial MELITON and PVR are normal - likely lymphedema 5. Buttox redness, improving - nystatin powder apply 6. HTN - Hypertensive urgency/emergency prior to presentation, resolved - cont home Losartan and HCTZ - Continue to monitor CCD Lovenox/PTX Dispo: per , pt will be flown back to [place] on Thursday morning. Refer to note. Patient was seen, evaluated and discussed with attending, Dr. Em <Mackenzie Em - Last Filed: 06/07/17 18:06> Objective - Vital Signs/Intake and Output Vital Signs (last 24 hours): Temp Pulse Resp BP Pulse Ox 97.7 F 76 18 141/88 96 06/07/17 08:15 06/07/17 08:15 06/07/17 08:15 06/07/17 08:15 06/07/17 08:15 Intake and Output: 06/07/17 06/07/17 06:59 18:59 Intake Total 540 400 Output Total 240 200 Balance 300 200 - Medications Medications: Current Medications Acetaminophen (Tylenol 325mg Tab) 650 mg PO Q6H PRN PRN Reason: Fever >100.4 F Last Admin: 06/04/17 21:33 Dose: 650 mg Enoxaparin Sodium (Lovenox) 40 mg SC DAILY [facility] PRN Reason: Protocol Last Admin: 06/07/17 09:33 Dose: 40 mg Glimepiride (Amaryl) 2 mg PO DAILY [facility] Last Admin: 06/07/17 13:28 Dose: 2 mg Hydrochlorothiazide (Microzide) 12.5 mg PO DAILY [facility] Last Admin: 06/07/17 09:32 Dose: 12.5 mg Meropenem 1g/NS 100mL IVPB (Meropenem 1g/Ns 100ml Ivpb) 1 gm in 100 mls @ 100 mls/hr IVPB Q8 [facility] PRN Reason: Protocol Stop: 06/08/17 12:51 Last Admin: 06/07/17 14:24 Dose: 100 mls/hr Insulin Human Regular (Humulin R Low) 0 units SC ACHS [facility] PRN Reason: Protocol Last Admin: 06/07/17 13:33 Dose: 2 units Linezolid (Zyvox) 600 mg PO BID [facility] PRN Reason: Protocol Stop: 06/08/17 12:51 Last Admin: 06/07/17 09:32 Dose: 600 mg Losartan Potassium (Cozaar) 100 mg PO DAILY [facility] Last Admin: 06/07/17 09:32 Dose: 100 mg Metformin HCl (Glucophage) 1,000 mg PO BID [facility] Last Admin: 06/07/17 09:32 Dose: 1,000 mg Mupirocin (Bactroban Ointment) 0 gm TOP BID [facility] Last Admin: 06/06/17 13:15 Dose: Not Given Nystatin (Nystop Topical Powder) 0 gm TOP BID [facility] Last Admin: 06/06/17 17:23 Dose: 1 applic Ondansetron HCl (Zofran Inj) 4 mg IVP Q4H PRN PRN Reason: Nausea/Vomiting Oxychlorosene Sodium (Clorpactin Wcs-90) 2 gm TOP DAILY [facility] Last Admin: 06/06/17 13:15 Dose: Not Given Pantoprazole Sodium (Protonix Ec Tab) 40 mg PO 0600 [facility] Last Admin: 06/07/17 06:24 Dose: 40 mg - Labs Labs: 06/07/17 07:10 06/07/17 07:10 PT 11.4 Seconds (9.9-11.8) 05/30/17 01:00 INR 1.06 (0.93-1.08) 05/30/17 01:00 APTT 28.4 Seconds (23.7-30.8) 05/30/17 01:00 Attending/Attestation - Attestation I have personally seen and examined this patient.: Yes I have fully participated in the care of the patient.: Yes I have reviewed all pertinent clinical information, including history, physical exam and plan: Yes Notes (Text): 06/07/17 18:06 Attending note; Patient seen and examined with resident. Patient is a 71 year old [place] female who [place] with history of HTN, obesity,DM-2 , not taking meds is admitted with nausea, vomiting.Admitted for hyperosmolar non ketotic state. Started on metformin. dosage increased. monitor sugar closely. continue IV meropenem and Zyvox. urine culture showed Klebsiella. Wound culture showed Enterococcus faecalis. right big toe osteomyelitis/abscess;s/p Incision and drainage of the right big toe. Dressing clean. No bleeding noted. discharge planned for Thursday. the patient will fly back to [facility] on Thursday. Advised to follow-up with slitter scorer cut off operator in [facility] for further foot care.
[2017-06-07] MEDS: Oxychlorosene Topical 2 gm Packet TOP SCH (18:38)
[2017-06-08] MEDS: Meropenem 1g/NS 100mL IVPB 1 GM/100 ML PIGGYBACK IVPB SCH ×2 (05:29→22:22)
[2017-06-08] MEDS: Pantoprazole 40 mg EC Tab PO SCH (05:29)
[2017-06-08 07:05] LABS: BASO # 0.02 K/mm3 (0.0-2.0); BASO % 0.3 % (0.0-3.0); EOS # 0.4 (0.0-0.7); GRAN # 4.11 (1.4-6.5); GRAN % 58.7 % (50.0-68.0); HEMATOCRIT 38.6 % (36.0-48.0); LYMPH # 2.1 (1.2-3.4); LYMPH % 29.9 % (22.0-35.0); MEAN CELL VOLUME 85.2 fl (80.0-105.0); MEAN CORPUSCULAR HEMOGLOBIN 29.1 pg (25.0-35.0); MEAN CORPUSCULAR HGB CONC 34.2 g/dl (31.0-37.0); MEAN PLATELET VOLUME 9.4 fl (7.0-11.0); MONO # 0.4 (0.1-0.6); MONO % 5.1 % (1.0-6.0); RED CELL DISTRIBUTION WIDTH 13.1 % (11.5-14.5)
[2017-06-08 07:35] LABS: ALKALINE PHOSPHATASE 100 U/L (38-126); ALT/SGPT 28 U/L (7-56); AST/SGOT 23 U/L (14-36); BILIRUBIN,TOTAL 0.5 mg/dL (0.2-1.3); BLOOD UREA NITROGEN 21 mg/dL (7-21); CALCIUM 8.8 mg/dL (8.4-10.5); CARBON DIOXIDE 28 mmol/L (21-33); CHLORIDE 99 mmol/L (98-107); GFR AFRICAN-AMERICAN > 60; GLUCOSE,RANDOM 164 mg/dL (70-110); POTASSIUM 4.7 mmol/L (3.6-5.0); SODIUM 137 mmol/L (132-148); TOTAL PROTEIN 6.5 g/dL (5.8-8.3)
--- NOTE | 2017-06-08 10:13 | CP.PCM.PN ---
<Jaison Best - Last Filed: 06/08/17 11:10> Subjective - Date & Time of Evaluation Date of Evaluation: 06/08/17 Time of Evaluation: 10:13 - Subjective Subjective: Podiatry Progress Note - Dr. Granados 71 year old [place]-speaking female PMHx uncontrolled DM seen at bedside POD#4 ( DOS: 06/04/17) right great toe I&D. Patient seen resting comfortably, NAD. Patient denies any pain to her right foot today. Patient states she is unable to ambulate with the forefoot offloading shoe to right foot because the platform of is too high; patient admits she feels unstable when ambulating with shoe. Patient states however she has been wearing the regular surgical shoe and ambulates without difficulty. Patient states she must be discharged tomorrow, Thursday06/09/17 to make her flight back to [place]. Patient denies N/V/F/D/C/SOB /calf pain. No other pedal complaints at this time. Objective - Vital Signs/Intake and Output Vital Signs (last 24 hours): Temp Pulse Resp BP Pulse Ox 97.9 F 83 18 136/84 97 06/08/17 08:27 06/08/17 08:27 06/08/17 08:27 06/08/17 08:27 06/08/17 08:27 Intake and Output: 06/08/17 06/08/17 06:59 18:59 Intake Total 420 Balance 420 - Medications Medications: Current Medications Acetaminophen (Tylenol 325mg Tab) 650 mg PO Q6H PRN PRN Reason: Fever >100.4 F Last Admin: 06/04/17 21:33 Dose: 650 mg Enoxaparin Sodium (Lovenox) 40 mg SC DAILY [facility] PRN Reason: Protocol Last Admin: 06/07/17 09:33 Dose: 40 mg Glimepiride (Amaryl) 2 mg PO DAILY [facility] Last Admin: 06/07/17 13:28 Dose: 2 mg Hydrochlorothiazide (Microzide) 12.5 mg PO DAILY [facility] Last Admin: 06/07/17 09:32 Dose: 12.5 mg Meropenem 1g/NS 100mL IVPB (Meropenem 1g/Ns 100ml Ivpb) 1 gm in 100 mls @ 100 mls/hr IVPB Q8 [facility] PRN Reason: Protocol Stop: 06/08/17 12:51 Last Admin: 06/08/17 05:29 Dose: 100 mls/hr Insulin Human Regular (Humulin R Low) 0 units SC ACHS [facility] PRN Reason: Protocol Last Admin: 06/07/17 21:24 Dose: Not Given Linezolid (Zyvox) 600 mg PO BID [facility] PRN Reason: Protocol Stop: 06/08/17 12:51 Last Admin: 06/07/17 18:39 Dose: 600 mg Losartan Potassium (Cozaar) 100 mg PO DAILY [facility] Last Admin: 06/07/17 09:32 Dose: 100 mg Metformin HCl (Glucophage) 1,000 mg PO BID [facility] Last Admin: 06/07/17 18:38 Dose: 1,000 mg Mupirocin (Bactroban Ointment) 0 gm TOP BID [facility] Last Admin: 06/07/17 18:37 Dose: Not Given Nystatin (Nystop Topical Powder) 0 gm TOP BID [facility] Last Admin: 06/07/17 18:39 Dose: 1 applic Ondansetron HCl (Zofran Inj) 4 mg IVP Q4H PRN PRN Reason: Nausea/Vomiting Oxychlorosene Sodium (Clorpactin Wcs-90) 2 gm TOP DAILY [facility] Last Admin: 06/07/17 18:38 Dose: Not Given Pantoprazole Sodium (Protonix Ec Tab) 40 mg PO 0600 [facility] Last Admin: 06/08/17 05:29 Dose: 40 mg - Labs Labs: 06/08/17 06:56 06/08/17 06:56 PT 11.4 Seconds (9.9-11.8) 05/30/17 01:00 INR 1.06 (0.93-1.08) 05/30/17 01:00 APTT 28.4 Seconds (23.7-30.8) 05/30/17 01:00 - Constitutional Appears: Well, Non-toxic, No Acute Distress - Extremities Exam Additional comments: RLE focused physical exam: Dressing to right foot appears clean/dry/intact with no strikethrough noted. VASC: DP and PT pulses palpable 2/4. CFT < 3 seconds to all digits. TG warm to warm. Non-pitting edema is noted to hallux circumferentially NEURO: Pedal sensation is grossly diminished DERM: Ulceration noted to plantarmedial IPJ measuring approximately 0.5 x 0.3 cm - +probe to bone, -malodor, -purulence, +mild serous drainage. Incision site of right hallux located proximal to ulceration appears well-coapted with no dehisence, no maceration, minimal serous drainage, erythema is decreased, no ascending cellulitis. Sutures intact. Erythema to right hallux decreased. ORTHO: No pain on palpation right hallux. - Neurological Exam Neurological Exam: Alert, Awake - Psychiatric Exam Psychiatric exam: Normal Affect, Normal Mood Assessment and Plan - Assessment and Plan (Free Text) Assessment: 71 year old female patient PMHx uncontrolled DM POD #4 right hallux incision & drainage 2/2 abscess + cellulitis Plan: Patient seen and evaluated with attending, Dr. Granados Chart, vitals, labs reviewed = afebrile, WBC wnl 7.0 1/" iodoform packing removed. Right hallux cleansed with Clorpactin/Saline solution and dressed with Xeroform, DSD Crest pad made and placed under right hallux. Patient to wear crest pad at all times while ambulating in regular surgical shoe D/C use of forefoot wedge shoe Nursing communication for shower privileges today, 06/08 and tomorrow, Thursday Per social work, patient will be picked up on to board a flight back to [facility] Podiatry will continue to follow while in house <Mague Granados - Last Filed: 06/14/17 14:40> Objective - Vital Signs/Intake and Output Vital Signs (last 24 hours): Temp Pulse Resp BP Pulse Ox 97.6 F 85 20 161/93 H 98 06/09/17 08:47 06/09/17 08:47 06/09/17 08:47 06/09/17 08:47 06/09/17 08:47 - Labs Labs: 06/09/17 07:37 06/09/17 07:37 PT 11.4 Seconds (9.9-11.8) 05/30/17 01:00 INR 1.06 (0.93-1.08) 05/30/17 01:00 APTT 28.4 Seconds (23.7-30.8) 05/30/17 01:00 Attending/Attestation - Attestation I have personally seen and examined this patient.: Yes I have fully participated in the care of the patient.: Yes I have reviewed all pertinent clinical information, including history, physical exam and plan: Yes
[2017-06-08] MEDS: Nystatin 100,000 Units/gm Topical Pow(15 gm) TOP SCH ×3 (10:35→17:41)
[2017-06-08] MEDS: Insulin Reg-LOW-Coverage SC SCH ×4 (10:37→22:19)
[2017-06-08] MEDS: Enoxaparin 40 mg Syringe SC SCH (10:37)
[2017-06-08] MEDS: Oxychlorosene Topical 2 gm Packet TOP SCH (10:38)
--- NOTE | 2017-06-08 11:21 | CP.PCM.PN ---
<Anastacio Ortega - Last Filed: 06/08/17 13:34> Subjective - Date & Time of Evaluation Date of Evaluation: 06/08/17 Time of Evaluation: 09:20 - Subjective Subjective: Patient seen and examined at bedside. No acute overnight events. Patient resting comfortably in bed. Offers no new complaints at this time. States her foot pain has improved from baseline. Denies f/c/p/sob/abdominal pain/n/v/ diarrhea/constipation/urinary symptoms. . Objective - Vital Signs/Intake and Output Vital Signs (last 24 hours): Temp Pulse Resp BP Pulse Ox 97.9 F 83 18 136/84 97 06/08/17 08:27 06/08/17 08:27 06/08/17 08:27 06/08/17 08:27 06/08/17 08:27 Intake and Output: 06/08/17 06/08/17 06:59 18:59 Intake Total 420 Balance 420 - Medications Medications: Current Medications Acetaminophen (Tylenol 325mg Tab) 650 mg PO Q6H PRN PRN Reason: Fever >100.4 F Last Admin: 06/04/17 21:33 Dose: 650 mg Enoxaparin Sodium (Lovenox) 40 mg SC DAILY [facility] PRN Reason: Protocol Last Admin: 06/08/17 10:37 Dose: 40 mg Glimepiride (Amaryl) 2 mg PO DAILY [facility] Last Admin: 06/08/17 10:35 Dose: 2 mg Hydrochlorothiazide (Microzide) 12.5 mg PO DAILY [facility] Last Admin: 06/08/17 10:36 Dose: 12.5 mg Meropenem 1g/NS 100mL IVPB (Meropenem 1g/Ns 100ml Ivpb) 1 gm in 100 mls @ 100 mls/hr IVPB Q8 [facility] PRN Reason: Protocol Stop: 06/08/17 12:51 Last Admin: 06/08/17 05:29 Dose: 100 mls/hr Insulin Human Regular (Humulin R Low) 0 units SC ACHS [facility] PRN Reason: Protocol Last Admin: 06/08/17 10:37 Dose: Not Given Linezolid (Zyvox) 600 mg PO BID [facility] PRN Reason: Protocol Stop: 06/08/17 12:51 Last Admin: 06/08/17 10:36 Dose: 600 mg Losartan Potassium (Cozaar) 100 mg PO DAILY [facility] Last Admin: 06/08/17 10:37 Dose: 100 mg Metformin HCl (Glucophage) 1,000 mg PO BID [facility] Last Admin: 06/08/17 10:37 Dose: 1,000 mg Mupirocin (Bactroban Ointment) 0 gm TOP BID [facility] Last Admin: 06/08/17 10:39 Dose: Not Given Nystatin (Nystop Topical Powder) 0 gm TOP BID [facility] Last Admin: 06/08/17 10:35 Dose: 1 applic Ondansetron HCl (Zofran Inj) 4 mg IVP Q4H PRN PRN Reason: Nausea/Vomiting Oxychlorosene Sodium (Clorpactin Wcs-90) 2 gm TOP DAILY [facility] Last Admin: 06/08/17 10:38 Dose: 2 gm Pantoprazole Sodium (Protonix Ec Tab) 40 mg PO 0600 [facility] Last Admin: 06/08/17 05:29 Dose: 40 mg - Labs Labs: 06/08/17 06:56 06/08/17 06:56 PT 11.4 Seconds (9.9-11.8) 05/30/17 01:00 INR 1.06 (0.93-1.08) 05/30/17 01:00 APTT 28.4 Seconds (23.7-30.8) 05/30/17 01:00 - Additional Findings Additional findings: - Constitutional Appears: Well, Non-toxic, No Acute Distress - Head Exam Head Exam: ATRAUMATIC, NORMAL INSPECTION - Eye Exam Eye Exam: EOMI, Normal appearance, PERRL - ENT Exam ENT Exam: Mucous Membranes Moist, Normal Exam - Neck Exam Neck Exam: Normal Inspection - Respiratory Exam Respiratory Exam: Clear to Ausculation Bilateral, NORMAL BREATHING PATTERN. absent: Rales, Rhonchi, Wheezes - Cardiovascular Exam Cardiovascular Exam: RRR. absent: Murmur - GI/Abdominal Exam GI & Abdominal Exam: Soft, Normal Bowel Sounds. absent: Distended, Tenderness - Extremities Exam Extremities Exam: Pedal Edema Additional comments: RLE swelling resolved R foot is wrapped in gauze boot - Back Exam Back Exam: NORMAL INSPECTION - Neurological Exam Neurological Exam: Alert, Awake, Oriented x3 Assessment and Plan - Assessment and Plan (Free Text) Assessment: Assessment: 71 yo [place] speaking F with PMH of DM, HTN, medication noncompliance presented to ER, [place] physician for hyperglycemia, leukocytosis, lactic acidosis, HTN, and vomiting. Found to be septic likely 2/2 R hallux osteomyelitis vs UTI due to Klebsiella infection. Later discovered to have R hallux enterococcus faecalis infection w/ underlying osteomyelitis Plan: R hallux abscess and cellulitis w/ underlying osteomyelitis - Podiatry consulted and are managing - wound culture: E. faecalis - on Zyvox and Meropenem- spoke with ID will be ok to be discharged on doxycycline 100mg BID for 4 weeks and augmentin 870mg q12 for 4 weeks - ID consulted, recs appreciated - PT evaluation appreciated, see note for details Sepsis likely 2/2 UTI vs cellulitis - urine culture: growing klebsiella - wound cx growing enterococcus faecalis - pt remains afebrile w/ no WBC elevation - BCx no growth after 5 days - CXR showed no acute findings - Bactroban ointment - oxychlorosene Hx DM2 - Metformin 000mg BID and amaryl mg PO daily will rewrite Rx with new dosage - ISS LOW - accucheck ACHS - Zofran for nausea - Carb consistent diet - diabetic education referral LE swelling, improving w/ abx treatment - LE doppler showed no DVT b/l - LE arterial MELITON and PVR are normal - likely lymphedema Buttox redness, improving - nystatin powder apply HTN - Hypertensive urgency/emergency prior to presentation, resolved - cont home Losartan and HCTZ - Continue to monitor PPX: Lovenox/PTX Dispo: per , pt will be flown back to [place] on Thursday morning. Refer to note. Patient seen, examined, case discussed with, and plan approved by attending physician, Dr Shore. <Roberto Carlos Shore - Last Filed: 06/08/17 18:42> Objective - Vital Signs/Intake and Output Vital Signs (last 24 hours): Temp Pulse Resp BP Pulse Ox 98 F 107 H 20 140/90 98 06/08/17 16:00 06/08/17 16:00 06/08/17 16:00 06/08/17 16:00 06/08/17 16:00 Intake and Output: 06/08/17 06/08/17 06:59 18:59 Intake Total 420 Balance 420 - Medications Medications: Current Medications Acetaminophen (Tylenol 325mg Tab) 650 mg PO Q6H PRN PRN Reason: Fever >100.4 F Last Admin: 06/04/17 21:33 Dose: 650 mg Enoxaparin Sodium (Lovenox) 40 mg SC DAILY [facility] PRN Reason: Protocol Last Admin: 06/08/17 10:37 Dose: 40 mg Glimepiride (Amaryl) 2 mg PO DAILY [facility] Last Admin: 06/08/17 10:35 Dose: 2 mg Hydrochlorothiazide (Microzide) 12.5 mg PO DAILY [facility] Last Admin: 06/08/17 10:36 Dose: 12.5 mg Meropenem 1g/NS 100mL IVPB (Meropenem 1g/Ns 100ml Ivpb) 1 gm in 100 mls @ 100 mls/hr IVPB Q8 [facility] PRN Reason: Protocol Stop: 06/15/17 22:01 Linezolid (Zyvox 600mg/300ml D5w) 600 mg in 300 mls @ 200 mls/hr IVPB Q12 [facility] PRN Reason: Protocol Stop: 06/15/17 22:01 Insulin Human Regular (Humulin R Low) 0 units SC ACHS [facility] PRN Reason: Protocol Last Admin: 06/08/17 17:07 Dose: Not Given Losartan Potassium (Cozaar) 100 mg PO DAILY [facility] Last Admin: 06/08/17 10:37 Dose: 100 mg Metformin HCl (Glucophage) 1,000 mg PO BID [facility] Last Admin: 06/08/17 17:40 Dose: 1,000 mg Mupirocin (Bactroban Ointment) 0 gm TOP BID [facility] Last Admin: 06/08/17 17:39 Dose: Not Given Nystatin (Nystop Topical Powder) 0 gm TOP BID [facility] Last Admin: 06/08/17 17:41 Dose: 1 applic Ondansetron HCl (Zofran Inj) 4 mg IVP Q4H PRN PRN Reason: Nausea/Vomiting Oxychlorosene Sodium (Clorpactin Wcs-90) 2 gm TOP DAILY [facility] Last Admin: 06/08/17 10:38 Dose: 2 gm Pantoprazole Sodium (Protonix Ec Tab) 40 mg PO 0600 [facility] Last Admin: 06/08/17 05:29 Dose: 40 mg - Labs Labs: 06/08/17 06:56 06/08/17 06:56 PT 11.4 Seconds (9.9-11.8) 05/30/17 01:00 INR 1.06 (0.93-1.08) 05/30/17 01:00 APTT 28.4 Seconds (23.7-30.8) 05/30/17 01:00 Attending/Attestation - Attestation I have personally seen and examined this patient.: Yes I have fully participated in the care of the patient.: Yes I have reviewed all pertinent clinical information, including history, physical exam and plan: Yes Notes (Text): I have seen and examined the patient at bedside. Agree with the above note with the following additions/ exceptions: Briefly this is 71 year old [place] female who [place] with history of HTN, obesity, DM-2, non compliant with medications who was admitted with nausea, vomiting and found to have hyperosmolar non ketotic state. She was also found to have sepsis secondary to Klebsiella UTI and right foot hallux osteomyelitis on meropenem and zyvox. Wound culture showed Enterococcus faecalis. Advised to follow-up with county home demonstration agent in [place] for further foot care. Dr Roberto Carlos Shore
--- NOTE | 2017-06-08 15:50 | CP.PCM.PN ---
Subjective - Date & Time of Evaluation Date of Evaluation: 06/08/17 Time of Evaluation: 11:40 - Subjective Subjective: Comfortable, afebrile, not in distress. Objective - Vital Signs/Intake and Output Vital Signs (last 24 hours): Temp Pulse Resp BP Pulse Ox 97.9 F 83 18 136/84 97 06/08/17 08:27 06/08/17 08:27 06/08/17 08:27 06/08/17 08:27 06/08/17 08:27 Intake and Output: 06/08/17 06/08/17 06:59 18:59 Intake Total 420 Balance 420 - Medications Medications: Current Medications Acetaminophen (Tylenol 325mg Tab) 650 mg PO Q6H PRN PRN Reason: Fever >100.4 F Last Admin: 06/04/17 21:33 Dose: 650 mg Enoxaparin Sodium (Lovenox) 40 mg SC DAILY [facility] PRN Reason: Protocol Last Admin: 06/07/17 09:33 Dose: 40 mg Glimepiride (Amaryl) 2 mg PO DAILY [facility] Last Admin: 06/07/17 13:28 Dose: 2 mg Hydrochlorothiazide (Microzide) 12.5 mg PO DAILY [facility] Last Admin: 06/07/17 09:32 Dose: 12.5 mg Meropenem 1g/NS 100mL IVPB (Meropenem 1g/Ns 100ml Ivpb) 1 gm in 100 mls @ 100 mls/hr IVPB Q8 [facility] PRN Reason: Protocol Stop: 06/08/17 12:51 Last Admin: 06/08/17 05:29 Dose: 100 mls/hr Insulin Human Regular (Humulin R Low) 0 units SC ACHS [facility] PRN Reason: Protocol Last Admin: 06/07/17 21:24 Dose: Not Given Linezolid (Zyvox) 600 mg PO BID [facility] PRN Reason: Protocol Stop: 06/08/17 12:51 Last Admin: 06/07/17 18:39 Dose: 600 mg Losartan Potassium (Cozaar) 100 mg PO DAILY [facility] Last Admin: 06/07/17 09:32 Dose: 100 mg Metformin HCl (Glucophage) 1,000 mg PO BID [facility] Last Admin: 06/07/17 18:38 Dose: 1,000 mg Mupirocin (Bactroban Ointment) 0 gm TOP BID [facility] Last Admin: 06/07/17 18:37 Dose: Not Given Nystatin (Nystop Topical Powder) 0 gm TOP BID [facility] Last Admin: 06/07/17 18:39 Dose: 1 applic Ondansetron HCl (Zofran Inj) 4 mg IVP Q4H PRN PRN Reason: Nausea/Vomiting Oxychlorosene Sodium (Clorpactin Wcs-90) 2 gm TOP DAILY [facility] Last Admin: 06/07/17 18:38 Dose: Not Given Pantoprazole Sodium (Protonix Ec Tab) 40 mg PO 0600 [facility] Last Admin: 06/08/17 05:29 Dose: 40 mg - Labs Labs: 06/08/17 06:56 06/08/17 06:56 PT 11.4 Seconds (9.9-11.8) 05/30/17 01:00 INR 1.06 (0.93-1.08) 05/30/17 01:00 APTT 28.4 Seconds (23.7-30.8) 05/30/17 01:00 - Constitutional Appears: Non-toxic, No Acute Distress - Head Exam Head Exam: NORMAL INSPECTION - ENT Exam ENT Exam: Mucous Membranes Moist - Neck Exam Neck Exam: absent: Meningismus - Respiratory Exam Respiratory Exam: Decreased Breath Sounds - Cardiovascular Exam Cardiovascular Exam: +S1, +S2 - GI/Abdominal Exam GI & Abdominal Exam: Soft. absent: Tenderness - Extremities Exam Additional comments: right foot with dressings in place Assessment and Plan - Assessment and Plan (Free Text) Plan: Assessment Sepsis due to Right foot hallux skin and soft tissue infection with probable osteomyelitis of the distal and proximal phalanges; so far growing E. faecalis s /P I and D POD #4 gram negative bacteriuria without symptoms (i.e. asymptomatic) DM HTN obesity with BMI 30 Plan continue Zyvox, MErrem; initial wound cx showing E. faecalis); MELITON's are normal ; follow up OR pathology as well - if patient is to go back to [place], she can be switched to PO Doxycycline and Augmentin for at least 4 weeks and should follow up with a [employer] Home Sales Greeter in [place] and should get weekly ESR, CRP, CBC, CMP while on antibiotics discussed with Dr. Roberto Carlos Shore
[2017-06-08 16:40] VITALS: RESP 20; O2SAT 98
[2017-06-08] MEDS: Linezolid 600 mg in D5W 300 ml 600 MG/300 ML BAG IVPB SCH (23:31)
--- NOTE | 2017-06-09 04:48 | CP.PCM.DIS ---
<Anastacio Ortega - Last Filed: 06/09/17 08:33> Provider - Provider Date of Admission: 05/30/17 05:03 Attending physician: Roberto Carlos Shore MD Consults: podiatry- Dr. Rob infectious disease- Dr. Oneil Time Spent in preparation of Discharge (in minutes): 30 Diagnosis - Discharge Diagnosis (1) Sepsis Status: Acute Priority: Medium (2) Cellulitis Status: Acute Priority: Medium (3) Abscess Status: Acute Priority: Medium (4) Hypertension Status: Acute Priority: Medium (5) UTI (urinary tract infection) Status: Acute Priority: Medium (6) Uncontrolled diabetes mellitus Status: Acute Priority: Medium Hospital Course - Lab Results Lab Results: Micro Results 05/30/17 13:50 Foot - Right Gram Stain - Final 05/30/17 13:50 Foot - Right Wound Culture - Final Enterococcus Faecalis Most Recent Lab Values WBC 7.0 10^3/ul (4.5-11.0) 06/08/17 06:56 RBC 4.53 10^6/uL (3.5-6.1) 06/08/17 06:56 Hgb 13.2 g/dL (12.0-16.0) 06/08/17 06:56 Hct 38.6 % (36.0-48.0) 06/08/17 06:56 MCV 85.2 fl (80.0-105.0) 06/08/17 06:56 MCH 29.1 pg (25.0-35.0) 06/08/17 06:56 MCHC 34.2 g/dl (31.0-37.0) 06/08/17 06:56 RDW 13.1 % (11.5-14.5) 06/08/17 06:56 Plt Count 308 10^3/uL (120.0-450.0) 06/08/17 06:56 MPV 9.4 fl (7.0-11.0) 06/08/17 06:56 Gran % 58.7 % (50.0-68.0) 06/08/17 06:56 Lymph % (Auto) 29.9 % (22.0-35.0) 06/08/17 06:56 [place] % (Auto) 5.1 % (1.0-6.0) 06/08/17 06:56 Eos % (Auto) 6.0 % (1.5-5.0) H 06/08/17 06:56 Baso % (Auto) 0.3 % (0.0-3.0) 06/08/17 06:56 Gran # 4.11 (1.4-6.5) 06/08/17 06:56 Lymph # 2.1 (1.2-3.4) 06/08/17 06:56 [place] # 0.4 (0.1-0.6) 06/08/17 06:56 Eos # 0.4 (0.0-0.7) 06/08/17 06:56 Baso # 0.02 K/mm3 (0.0-2.0) 06/08/17 06:56 Neutrophils % (Manual) 75 % (50.0-70.0) H 05/30/17 01:00 Band Neutrophils % 7 % (0-2) H 05/30/17 01:00 Lymphocytes % (Manual) 8 % (22.0-35.0) L 05/30/17 01:00 Monocytes % (Manual) 9 % (1.0-6.0) H 05/30/17 01:00 Basophils % (Manual) 1 % (0.0-1.0) 05/30/17 01:00 Platelet Evaluation Normal (NORMAL) 05/30/17 01:00 ESR 50 mm/hr (0.0-20.0) H 05/30/17 16:30 PT 11.4 Seconds (9.9-11.8) 05/30/17 01:00 INR 1.06 (0.93-1.08) 05/30/17 01:00 APTT 28.4 Seconds (23.7-30.8) 05/30/17 01:00 pO2 53 mm/Hg (30-55) 05/30/17 05:35 VBG pH 7.29 (7.32-7.43) L 05/30/17 05:35 VBG pCO2 38.0 (40-60) L 05/30/17 05:35 VBG HCO3 18.3 mmol/l (21-28) L 05/30/17 05:35 VBG Total CO2 19.5 mmol.L (22-28) L 05/30/17 05:35 VBG O2 Sat (Calc) 90.7 % (40-65) H 05/30/17 05:35 VBG Base Excess -7.7 mmol/L (0.0-2.0) L 05/30/17 05:35 VBG Potassium 3.3 mmol/L (3.6-5.2) L 05/30/17 05:35 Sodium 136.0 mmol/L (132-148) 05/30/17 05:35 Chloride 107.0 mmol/L (98-107) 05/30/17 05:35 Glucose 323 mg/dl (65-105) H 05/30/17 05:35 Lactate 1.5 mmol/L (0.7-2.1) 05/30/17 05:35 FiO2 21.0 % 05/30/17 05:35 Sodium 137 mmol/L (132-148) 06/08/17 06:56 Potassium 4.7 mmol/L (3.6-5.0) 06/08/17 06:56 Chloride 99 mmol/L (98-107) 06/08/17 06:56 Carbon Dioxide 28 mmol/L (21-33) 06/08/17 06:56 Anion Gap 15 (10-20) 06/08/17 06:56 BUN 21 mg/dL (7-21) 06/08/17 06:56 Creatinine 0.8 mg/dL (0.5-1.4) 06/08/17 06:56 Est GFR ( Amer) > 60 06/08/17 06:56 Est GFR (Non-Af Amer) > 60 06/08/17 06:56 POC Glucose (mg/dL) 142 mg/dL (65-110) H 06/08/17 21:06 Random Glucose 164 mg/dL (70-110) H 06/08/17 06:56 Hemoglobin A1c 14.2 % (4.2-6.5) H 05/30/17 09:05 Calcium 8.8 mg/dL (8.4-10.5) 06/08/17 06:56 Total Bilirubin 0.5 mg/dL (0.2-1.3) 06/08/17 06:56 AST 23 U/L (14-36) 06/08/17 06:56 ALT 28 U/L (7-56) 06/08/17 06:56 Alkaline Phosphatase 100 U/L (38-126) 06/08/17 06:56 Troponin I 0.03 ng/mL D 06/02/17 14:00 C-React Prot High Sens > 15.00 mg/L (1.00-3.00) H 05/30/17 14:53 Total Protein 6.5 g/dL (5.8-8.3) 06/08/17 06:56 Albumin 3.3 g/dL (3.0-4.8) 06/08/17 06:56 Globulin 3.2 gm/dL 06/08/17 06:56 Albumin/Globulin Ratio 1.0 (1.1-1.8) L 06/08/17 06:56 Venous Blood Potassium 3.3 mmol/L (3.6-5.2) L 05/30/17 05:35 Urine Color Yellow (YELLOW) 05/30/17 03:30 Urine Appearance Clear (CLEAR) 05/30/17 03:30 Urine pH 6.0 (4.7-8.0) 05/30/17 03:30 Ur Specific [place] 1.015 (1.005-1.035) 05/30/17 03:30 Urine Protein 30 mg/dL (<30 mg/dL) H 05/30/17 03:30 Urine Glucose (UA) >=1000 mg/dL (NEGATIVE) 05/30/17 03:30 Urine Ketones >=80 mg/dL (NEGATIVE) 05/30/17 03:30 Urine Blood Moderate (NEGATIVE) H 05/30/17 03:30 Urine Nitrate Positive (NEGATIVE) H 05/30/17 03:30 Urine Bilirubin Negative (NEGATIVE) 05/30/17 03:30 Urine Urobilinogen 0.2 E.U./dL (<1 E.U./dL) 05/30/17 03:30 Ur Leukocyte Esterase Trace Lala/uL (NEGATIVE) H 05/30/17 03:30 Urine RBC 2 - 5 /hpf (0-2) 05/30/17 03:30 Urine WBC 5 - 10 /hpf (0-6) 05/30/17 03:30 Ur Epithelial Cells 1 - 3 /hpf (0-5) 05/30/17 03:30 Urine Bacteria Large (NEG) 05/30/17 03:30 Alcohol, Quantitative < 10 mg/dL (0-10) 05/30/17 04:10 - Hospital Course Hospital Course: Patient is a 71 year old Mongolian speaking female with PMH of DM, HTN, medication noncompliance who was admitted to the hospital for evaluation and treatment of vomiting. With the use of physical examinations, lab work, and imaging the patient was diagnosed with and treated for sepsis secondary to right foot osteomyelitis due to enterococcus faecalis vs UTI due to Klebsiella. During her hospital stay the patient was seen by infectious disease, Dr. Oneil, and podiatry Dr. Rob. The patient underwent an ECHO showing a normal EF of 55-60% with trace mitral regurgitation, foot MRI showing bone marrow edema with cortical destruction at the distal phalanx of the 1 st big toe suspicious of osteomyelitis, and multiple lower extremity ultrasounds showing no signs of DVT and relatively normal MELITON. The patient was treated with IV antibiotics, incision and drainage of the right hallux, antihypertensives, and diabetic medications. At this time the patient is medically stable for discharge. Patient understands and appreciates discharge plan. Patient instructed to follow up with primary care physicians and podiatry within one week from discharge. Furthermore the patient is instructed to take medications as prescribed and to return to emergency room for evaluation of intractable headache, fever, chills, dizziness, chest pain, shortness of breath, abdominal pain, nausea, vomiting, diarrhea, constipation, and urinary symptoms. This is a brief summary of the patient hospital course. Please see patient chart for full details. Discharge Exam - Head Exam Head Exam: NORMAL INSPECTION - Additional Findings Additional findings: - Constitutional Appears: Well, Non-toxic, No Acute Distress - Head Exam Head Exam: ATRAUMATIC, NORMAL INSPECTION - Eye Exam Eye Exam: EOMI, Normal appearance, PERRL - ENT Exam ENT Exam: Mucous Membranes Moist, Normal Exam - Neck Exam Neck Exam: Normal Inspection - Respiratory Exam Respiratory Exam: Clear to Ausculation Bilateral, NORMAL BREATHING PATTERN. absent: Rales, Rhonchi, Wheezes - Cardiovascular Exam Cardiovascular Exam: RRR. absent: Murmur - GI/Abdominal Exam GI & Abdominal Exam: Soft, Normal Bowel Sounds. absent: Distended, Tenderness - Extremities Exam Extremities Exam: Pedal Edema Additional comments: RLE swelling resolved R foot is wrapped in gauze boot - Back Exam Back Exam: NORMAL INSPECTION - Neurological Exam Neurological Exam: Alert, Awake, Oriented x3 Discharge Plan - Discharge Medications Prescriptions: Amoxicillin/Clavulanate [Augmentin 875 MG-125 MG] 1 tab PO Q12 30 Days tab RX: Doxycycline Hyclate 100 mg PO BID 30 Days capsule RX: Glimepiride [amaRYL] 2 mg PO DAILY 30 Days tab RX: hydroCHLOROthiazide [Microzide] 12.5 mg PO DAILY 30 Days cap RX: Losartan [Cozaar] 100 mg PO DAILY 30 Days tab RX: MetFORMIN [glucoPHAGE] 1,000 mg PO BID 30 Days tab - Follow Up Plan Condition: STABLE Disposition: HOME/ ROUTINE Patient education suggested?: Yes Instructions: Cellulitis (DC), Osteomyelitis (DC), Leukocytosis (DC), Abscess ( GEN), Hypertension (DC) Additional Instructions: Patient Instructions: Take medications as prescribed. Follow up with PMD and referrals within 1 week from discharge. Specifically follow up with snow plow tractor operator in [facility]. Return to emergency room for evaluation of intractable headache, fever, chills, dizziness, chest pain, shortness of breath, abdominal pain, nausea, vomiting, diarrhea, constipation, and urinary symptoms. Referrals: Jefferson Oneil MD [Staff Provider] - Neal Rob DPM [Staff Provider] - <Roberto Carlos Shore - Last Filed: 06/12/17 18:07> Provider - Provider Date of Admission: 05/30/17 05:03 Attending physician: Roberto Carlos Shore MD Time Spent in preparation of Discharge (in minutes): 35 Hospital Course - Lab Results Lab Results: Micro Results 05/30/17 13:50 Foot - Right Gram Stain - Final 05/30/17 13:50 Foot - Right Wound Culture - Final Enterococcus Faecalis Most Recent Lab Values WBC 8.0 10^3/ul (4.5-11.0) 06/09/17 07:37 RBC 4.67 10^6/uL (3.5-6.1) 06/09/17 07:37 Hgb 13.6 g/dL (12.0-16.0) 06/09/17 07:37 Hct 40.0 % (36.0-48.0) 06/09/17 07:37 MCV 85.7 fl (80.0-105.0) 06/09/17 07:37 MCH 29.1 pg (25.0-35.0) 06/09/17 07:37 MCHC 34.0 g/dl (31.0-37.0) 06/09/17 07:37 RDW 13.2 % (11.5-14.5) 06/09/17 07:37 Plt Count 340 10^3/uL (120.0-450.0) 06/09/17 07:37 MPV 9.5 fl (7.0-11.0) 06/09/17 07:37 Gran % 54.8 % (50.0-68.0) 06/09/17 07:37 Lymph % (Auto) 33.0 % (22.0-35.0) 06/09/17 07:37 [place] % (Auto) 5.3 % (1.0-6.0) 06/09/17 07:37 Eos % (Auto) 6.6 % (1.5-5.0) H 06/09/17 07:37 Baso % (Auto) 0.3 % (0.0-3.0) 06/09/17 07:37 Gran # 4.38 (1.4-6.5) 06/09/17 07:37 Lymph # 2.6 (1.2-3.4) 06/09/17 07:37 [place] # 0.4 (0.1-0.6) 06/09/17 07:37 Eos # 0.5 (0.0-0.7) 06/09/17 07:37 Baso # 0.02 K/mm3 (0.0-2.0) 06/09/17 07:37 Neutrophils % (Manual) 75 % (50.0-70.0) H 05/30/17 01:00 Band Neutrophils % 7 % (0-2) H 05/30/17 01:00 Lymphocytes % (Manual) 8 % (22.0-35.0) L 05/30/17 01:00 Monocytes % (Manual) 9 % (1.0-6.0) H 05/30/17 01:00 Basophils % (Manual) 1 % (0.0-1.0) 05/30/17 01:00 Platelet Evaluation Normal (NORMAL) 05/30/17 01:00 ESR 50 mm/hr (0.0-20.0) H 05/30/17 16:30 PT 11.4 Seconds (9.9-11.8) 05/30/17 01:00 INR 1.06 (0.93-1.08) 05/30/17 01:00 APTT 28.4 Seconds (23.7-30.8) 05/30/17 01:00 pO2 53 mm/Hg (30-55) 05/30/17 05:35 VBG pH 7.29 (7.32-7.43) L 05/30/17 05:35 VBG pCO2 38.0 (40-60) L 05/30/17 05:35 VBG HCO3 18.3 mmol/l (21-28) L 05/30/17 05:35 VBG Total CO2 19.5 mmol.L (22-28) L 05/30/17 05:35 VBG O2 Sat (Calc) 90.7 % (40-65) H 05/30/17 05:35 VBG Base Excess -7.7 mmol/L (0.0-2.0) L 05/30/17 05:35 VBG Potassium 3.3 mmol/L (3.6-5.2) L 05/30/17 05:35 Sodium 136.0 mmol/L (132-148) 05/30/17 05:35 Chloride 107.0 mmol/L (98-107) 05/30/17 05:35 Glucose 323 mg/dl (65-105) H 05/30/17 05:35 Lactate 1.5 mmol/L (0.7-2.1) 05/30/17 05:35 FiO2 21.0 % 05/30/17 05:35 Sodium 135 mmol/L (132-148) 06/09/17 07:37 Potassium 4.4 mmol/L (3.6-5.0) 06/09/17 07:37 Chloride 98 mmol/L (95-110) 06/09/17 07:37 Carbon Dioxide 26 mmol/L (21-33) 06/09/17 07:37 Anion Gap 15 (10-20) 06/09/17 07:37 BUN 21 mg/dL (7-21) 06/09/17 07:37 Creatinine 0.7 mg/dL (0.5-1.4) 06/09/17 07:37 Est GFR ( Amer) > 60 06/09/17 07:37 Est GFR (Non-Af Amer) > 60 06/09/17 07:37 POC Glucose (mg/dL) 180 mg/dL (65-110) H 06/09/17 07:47 Random Glucose 168 mg/dL (70-110) H 06/09/17 07:37 Hemoglobin A1c 14.2 % (4.2-6.5) H 05/30/17 09:05 Calcium 8.9 mg/dL (8.4-10.5) 06/09/17 07:37 Total Bilirubin 0.6 mg/dL (0.2-1.3) 06/09/17 07:37 AST 24 U/L (14-36) 06/09/17 07:37 ALT 43 U/L (7-56) 06/09/17 07:37 Alkaline Phosphatase 102 U/L (38-126) 06/09/17 07:37 Troponin I 0.03 ng/mL D 06/02/17 14:00 C-React Prot High Sens > 15.00 mg/L (1.00-3.00) H 05/30/17 14:53 Total Protein 6.7 g/dL (5.8-8.3) 06/09/17 07:37 Albumin 3.3 g/dL (3.0-4.8) 06/09/17 07:37 Globulin 3.4 gm/dL 06/09/17 07:37 Albumin/Globulin Ratio 1.0 (1.1-1.8) L 06/09/17 07:37 Venous Blood Potassium 3.3 mmol/L (3.6-5.2) L 05/30/17 05:35 Urine Color Yellow (YELLOW) 05/30/17 03:30 Urine Appearance Clear (CLEAR) 05/30/17 03:30 Urine pH 6.0 (4.7-8.0) 05/30/17 03:30 Ur Specific [place] 1.015 (1.005-1.035) 05/30/17 03:30 Urine Protein 30 mg/dL (<30 mg/dL) H 05/30/17 03:30 Urine Glucose (UA) >=1000 mg/dL (NEGATIVE) 05/30/17 03:30 Urine Ketones >=80 mg/dL (NEGATIVE) 05/30/17 03:30 Urine Blood Moderate (NEGATIVE) H 05/30/17 03:30 Urine Nitrate Positive (NEGATIVE) H 05/30/17 03:30 Urine Bilirubin Negative (NEGATIVE) 05/30/17 03:30 Urine Urobilinogen 0.2 E.U./dL (<1 E.U./dL) 05/30/17 03:30 Ur Leukocyte Esterase Trace Lala/uL (NEGATIVE) H 05/30/17 03:30 Urine RBC 2 - 5 /hpf (0-2) 05/30/17 03:30 Urine WBC 5 - 10 /hpf (0-6) 05/30/17 03:30 Ur Epithelial Cells 1 - 3 /hpf (0-5) 05/30/17 03:30 Urine Bacteria Large (NEG) 05/30/17 03:30 Alcohol, Quantitative < 10 mg/dL (0-10) 05/30/17 04:10 Attending/Attestation - Attestation I have personally seen and examined this patient.: Yes I have fully participated in the care of the patient.: Yes I have reviewed all pertinent clinical information, including history, physical exam and plan: Yes Notes (Text): I have seen and examined the patient at bedside. Agree with the above note. Advised patient to follow up with snow plow tractor operator and pmd in [place]. She was explained in detail regarding her hba1c and she was given diabetic education including insulin administration. Dr Roberto Carlos Shore
[2017-06-09] MEDS: Pantoprazole 40 mg EC Tab PO SCH (05:43)
[2017-06-09] MEDS: Meropenem 1g/NS 100mL IVPB 1 GM/100 ML PIGGYBACK IVPB SCH (05:44)
[2017-06-09 07:43] LABS: BASO # 0.02 K/mm3 (0.0-2.0); BASO % 0.3 % (0.0-3.0); EOS # 0.5 (0.0-0.7); EOS % 6.6 % (1.5-5.0); GRAN # 4.38 (1.4-6.5); GRAN % 54.8 % (50.0-68.0); LYMPH # 2.6 (1.2-3.4); MEAN CELL VOLUME 85.7 fl (80.0-105.0); MEAN CORPUSCULAR HEMOGLOBIN 29.1 pg (25.0-35.0); MEAN PLATELET VOLUME 9.5 fl (7.0-11.0); MONO # 0.4 (0.1-0.6); MONO % 5.3 % (1.0-6.0); RED CELL DISTRIBUTION WIDTH 13.2 % (11.5-14.5)
[2017-06-09 07:55] LABS: ALKALINE PHOSPHATASE 102 U/L (38-126); ALT/SGPT 43 U/L (7-56); AST/SGOT 24 U/L (14-36); BILIRUBIN,TOTAL 0.6 mg/dL (0.2-1.3); BLOOD UREA NITROGEN 21 mg/dL (7-21); CALCIUM 8.9 mg/dL (8.4-10.5); CARBON DIOXIDE 26 mmol/L (21-33); CHLORIDE 98 mmol/L (95-110); GFR AFRICAN-AMERICAN > 60; GLUCOSE,RANDOM 168 mg/dL (70-110); POTASSIUM 4.4 mmol/L (3.6-5.0); SODIUM 135 mmol/L (132-148); TOTAL PROTEIN 6.7 g/dL (5.8-8.3)
[2017-06-09 08:47] VITALS: BP 161/93; PULSE 85; TEMP 97.6
[2017-06-09] MEDS: Oxychlorosene Topical 2 gm Packet TOP SCH (09:33)
[2017-06-09] MEDS: Enoxaparin 40 mg Syringe SC SCH (09:35)
[2017-06-09] MEDS: Insulin Reg-LOW-Coverage SC SCH (09:35)
[2017-06-09] MEDS: Nystatin 100,000 Units/gm Topical Pow(15 gm) TOP SCH (09:36)
[2017-06-09] MEDS: Linezolid 600 mg in D5W 300 ml 600 MG/300 ML BAG IVPB SCH ×2 (09:36→09:41)
--- NOTE | 2017-06-09 12:33 | CP.PCM.PN ---
Subjective - Date & Time of Evaluation Date of Evaluation: 06/09/17 Time of Evaluation: 10:40 - Subjective Subjective: Comfortable, not in distress, afebrile. Objective - Vital Signs/Intake and Output Vital Signs (last 24 hours): Temp Pulse Resp BP Pulse Ox 98 F 107 H 20 140/90 98 06/08/17 16:00 06/08/17 16:00 06/08/17 16:00 06/08/17 16:00 06/08/17 16:00 Intake and Output: 06/09/17 06/09/17 06:59 18:59 Intake Total 420 Balance 420 - Medications Medications: Current Medications Acetaminophen (Tylenol 325mg Tab) 650 mg PO Q6H PRN PRN Reason: Fever >100.4 F Last Admin: 06/04/17 21:33 Dose: 650 mg Enoxaparin Sodium (Lovenox) 40 mg SC DAILY [facility] PRN Reason: Protocol Last Admin: 06/08/17 10:37 Dose: 40 mg Glimepiride (Amaryl) 2 mg PO DAILY [facility] Last Admin: 06/08/17 10:35 Dose: 2 mg Hydrochlorothiazide (Microzide) 12.5 mg PO DAILY [facility] Last Admin: 06/08/17 10:36 Dose: 12.5 mg Meropenem 1g/NS 100mL IVPB (Meropenem 1g/Ns 100ml Ivpb) 1 gm in 100 mls @ 100 mls/hr IVPB Q8 [facility] PRN Reason: Protocol Stop: 06/15/17 22:01 Last Admin: 06/09/17 05:44 Dose: 100 mls/hr Linezolid (Zyvox 600mg/300ml D5w) 600 mg in 300 mls @ 200 mls/hr IVPB Q12 [facility] PRN Reason: Protocol Stop: 06/15/17 22:01 Last Admin: 06/08/17 23:31 Dose: 200 mls/hr Insulin Human Regular (Humulin R Low) 0 units SC ACHS [facility] PRN Reason: Protocol Last Admin: 06/08/17 22:19 Dose: Not Given Losartan Potassium (Cozaar) 100 mg PO DAILY [facility] Last Admin: 06/08/17 10:37 Dose: 100 mg Metformin HCl (Glucophage) 1,000 mg PO BID [facility] Last Admin: 06/08/17 17:40 Dose: 1,000 mg Mupirocin (Bactroban Ointment) 0 gm TOP BID [facility] Last Admin: 06/08/17 17:39 Dose: Not Given Nystatin (Nystop Topical Powder) 0 gm TOP BID [facility] Last Admin: 06/08/17 17:41 Dose: 1 applic Ondansetron HCl (Zofran Inj) 4 mg IVP Q4H PRN PRN Reason: Nausea/Vomiting Oxychlorosene Sodium (Clorpactin Wcs-90) 2 gm TOP DAILY [facility] Last Admin: 06/08/17 10:38 Dose: 2 gm Pantoprazole Sodium (Protonix Ec Tab) 40 mg PO 0600 [facility] Last Admin: 06/09/17 05:43 Dose: 40 mg - Labs Labs: 06/08/17 06:56 06/08/17 06:56 PT 11.4 Seconds (9.9-11.8) 05/30/17 01:00 INR 1.06 (0.93-1.08) 05/30/17 01:00 APTT 28.4 Seconds (23.7-30.8) 05/30/17 01:00 - Constitutional Appears: Non-toxic, No Acute Distress - Head Exam Head Exam: NORMAL INSPECTION - ENT Exam ENT Exam: Mucous Membranes Moist - Neck Exam Neck Exam: absent: Meningismus - Respiratory Exam Respiratory Exam: Decreased Breath Sounds - Cardiovascular Exam Cardiovascular Exam: +S1, +S2 - GI/Abdominal Exam GI & Abdominal Exam: Soft. absent: Tenderness - Extremities Exam Additional comments: right foot with dressings in place Assessment and Plan - Assessment and Plan (Free Text) Plan: Assessment Sepsis due to Right foot hallux skin and soft tissue infection with probable osteomyelitis of the distal and proximal phalanges; so far growing E. faecalis s /P I and D POD #5 gram negative bacteriuria without symptoms (i.e. asymptomatic) DM HTN obesity with BMI 30 Plan continue Zyvox, MErrem; initial wound cx showing E. faecalis; MELITON's are normal; follow up OR pathology as well - if patient is to go back to [place], she can be switched to PO Doxycycline and Augmentin for at least 4 weeks and should follow up with a Ticker Installer in [place] and should get weekly ESR, CRP, CBC, CMP while on antibiotics discussed with Dr. Roberto Carlos Shore previously
--- NOTE | 2017-06-09 13:59 | CP.PCM.PN ---
<Jaison Best - Last Filed: 06/09/17 13:55> Subjective - Date & Time of Evaluation Date of Evaluation: 06/09/17 Time of Evaluation: 11:35 - Subjective Subjective: Podiatry Progress Note - Dr. Rob 71 year old Croatian-speaking female PMHx uncontrolled DM seen at bedside POD#5 ( DOS: 06/04/17) right great toe I&D. Patient seen out of bed, preparing for discharge. Patient seen wearing surgical shoe to right foot, ambulating without difficulty. Patient to leave back to [place] this afternoon. Patient denies any pain to her right foot. Per nursing, patient's dressing was changed at 09:00 after she showered. Patient aware she is to follow up with oxyacetylene cutter in [place] for follow up care for right foot infection. Patient denies N/V/F/D/C/ SOB/calf pain. No other pedal complaints at this time. Objective - Vital Signs/Intake and Output Vital Signs (last 24 hours): Temp Pulse Resp BP Pulse Ox 97.6 F 85 20 161/93 H 98 06/09/17 08:47 06/09/17 08:47 06/09/17 08:47 06/09/17 08:47 06/09/17 08:47 Intake and Output: 06/09/17 06/09/17 06:59 18:59 Intake Total 420 Balance 420 - Labs Labs: 06/09/17 07:37 06/09/17 07:37 PT 11.4 Seconds (9.9-11.8) 05/30/17 01:00 INR 1.06 (0.93-1.08) 05/30/17 01:00 APTT 28.4 Seconds (23.7-30.8) 05/30/17 01:00 - Constitutional Appears: Well, Non-toxic, No Acute Distress - Extremities Exam Additional comments: Dressing to right foot appears clean/dry/intact with no strikethrough noted. Patient is wearing surgical shoe to right foot. - Neurological Exam Neurological Exam: Alert, Awake, Oriented x3 - Psychiatric Exam Psychiatric exam: Normal Affect, Normal Mood Assessment and Plan - Assessment and Plan (Free Text) Assessment: 71 year old female patient PMHx uncontrolled DM POD #5 right hallux incision & drainage 2/2 abscess + cellulitis Plan: Patient seen and evaluated with attending, Dr. Rob Chart, vitals, labs reviewed = afebrile, WBC wnl 8.0 Per social work, patient will be picked up today to board flight back to [place] Patient aware she needs to follow [place] with oxyacetylene cutter [place] right foot infection Keep right foot clean/dry/intact C/w surgical shoe right foot for ambulation, WBAT Stable from podiatry standpoint <Neal Rob - Last Filed: 06/12/17 11:35> Objective - Vital Signs/Intake and Output Vital Signs (last 24 hours): Temp Pulse Resp BP Pulse Ox 97.6 F 85 20 161/93 H 98 06/09/17 08:47 06/09/17 08:47 06/09/17 08:47 06/09/17 08:47 06/09/17 08:47 - Labs Labs: 06/09/17 07:37 06/09/17 07:37 PT 11.4 Seconds (9.9-11.8) 05/30/17 01:00 INR 1.06 (0.93-1.08) 05/30/17 01:00 APTT 28.4 Seconds (23.7-30.8) 05/30/17 01:00 Attending/Attestation - Attestation I have personally seen and examined this patient.: Yes I have fully participated in the care of the patient.: Yes I have reviewed all pertinent clinical information, including history, physical exam and plan: Yes
== END 2017-06-09 13:46 | disposition home or self-care (01) | DRG 854 ==
LOC: ED 23:54 → ERH 05-30 05:03 → 3RSO 05-30 06:48
PROVIDERS: ADMIT Internal Medicine; ATTEND Hospitalist
PROC: 0JBQ0ZZ Excision of Right Foot Subcutaneous Tissue and Fascia, Open Approach (ICD-10-PCS; principal; 2017-06-05)
PROC: 0J9Q0ZZ Drainage of Right Foot Subcutaneous Tissue and Fascia, Open Approach (ICD-10-PCS; 2017-06-05)
DX: A41.9 Sepsis, unspecified organism (principal); L02.611 Cutaneous abscess of right foot; M86.8X7 Other osteomyelitis, ankle and foot; N30.00 Acute cystitis without hematuria; E87.2 Acidosis; E11.621 Type 2 diabetes mellitus with foot ulcer; L97.519 Non-pressure chronic ulcer of other part of right foot with unspecified severity; E11.628 Type 2 diabetes mellitus with other skin complications; E11.65 Type 2 diabetes mellitus with hyperglycemia; L03.031 Cellulitis of right toe; B35.6 Tinea cruris; B95.2 Enterococcus as the cause of diseases classified elsewhere; B96.1 Klebsiella pneumoniae [K. pneumoniae] as the cause of diseases classified elsewhere; I16.0 Hypertensive urgency; E11.69 Type 2 diabetes mellitus with other specified complication; I89.0 Lymphedema, not elsewhere classified; E66.9 Obesity, unspecified; Z79.84 Long term (current) use of oral hypoglycemic drugs; Z68.30 Body mass index [BMI] 30.0-30.9, adult; Z91.14 Patient's other noncompliance with medication regimen